=== PATIENT | female | born 1940 | race Caucasian/White ===

== ENCOUNTER 2018-11-03 07:00 | Inpatient (IN) ==
--- NOTE | 2018-11-03 07:17 | Emergency Department Note ---
Disposition Clinical Impression: Acute respiratory failure with hypoxemia, CHF (congestive heart failure) Disposition: Admitted As Inpatient Condition: Fair Time of Disposition: 11:27 SOB HPI - General Chief Complaint: ED Shortness of Breath/Dyspnea Stated Complaint: crist[place] Time Seen by Provider: 11/03/18 07:02 - History of Present Illness Patient has [id number] female that presented emergency room with complaints of shortness of breath. The patient states started about 3:30 in the morning. The patient does have a history of COPD, she is chronically on 2-1/2 L at home. She states that she has not had high fevers or chills. She had some swelling in the back of her head she stated this morning. She denies any chest pain, she has a nonproductive cough. She denies any leg pain or swelling. She does have a history of coronary artery disease and open heart surgery in the past as well as CHF history the past as well. She denies any anterior chest pain, palpitations, lightheadedness or dizziness. The patient denies any abdominal pain. She denies any back pain. She denies any other or GI complaints. Otherwise nothing makes symptoms much better, she has not used her inhaler as well as nebulizer at home this morning she states it did not help. The patient denies any other focal weakness or numbness. Exertion makes symptoms worse. - Related Data Home Medications Medication Instructions Recorded Confirmed Alendronate Sodium [Fosamax] 70 mg PO QWEEK 04/21/18 11/03/18 Aspirin [Lo-Dose Aspirin EC] 81 mg PO DAILY 04/21/18 11/03/18 B Complex with Vitamin C [Le-Bee 1 tab PO DAILY 04/21/18 11/03/18 with C] Biotin 10,000 mcg PO DAILY 04/21/18 11/03/18 Calcium Carb,Cit/D3/Phytostrol 1 tab PO DAILY 04/21/18 11/03/18 [Citracal D + Heart Health Tab] Cholecalciferol (D-3) [Vitamin D] 5,000 unit PO DAILY 04/21/18 11/03/18 Cilostazol 50 mg PO BID 04/21/18 11/03/18 Fluticasone Propionate Nasal 2 spr NS DAILY 04/21/18 11/03/18 [Flonase] Isosorbide MONOnitrate [Isosorbide 30 mg PO DAILY 04/21/18 11/03/18 Mononitrate ER] Lactobacillus Combination No.9 1 cap PO DAILY 04/21/18 11/03/18 [Adult 50 + Probiotic] Montelukast [Singulair] 10 mg PO DAILY 04/21/18 11/03/18 Potassium Chloride [K-Tab ER] 20 meq PO Q48H 04/21/18 11/03/18 Rosuvastatin Calcium 20 mg PO DAILY 04/21/18 11/03/18 Sertraline [Zoloft] 75 mg PO DAILY 04/21/18 11/03/18 Levothyroxine Sodium 100 mcg PO DAILY 06/26/18 11/03/18 Tiotropium [place] [Spiriva 2 puff IH DAILY 06/26/18 11/03/18 Respimat] Albuterol Sulfate [Ventolin Hfa] 2 puff IH Q6H PRN 08/15/18 11/03/18 LORazepam [Ativan] 1 mg PO HS PRN 08/15/18 11/03/18 Metoprolol XL (24 HR) Succ [Toprol 50 mg PO DAILY 08/15/18 11/03/18 Xl] Previous Rx's Medication Instructions Recorded Budesonide/Formoterol 160/4.5 2 puff IH BIDR #1 inh 04/25/18 [Symbicort 160/4.5] Albuterol Neb [Proventil Neb] 2.5 mg IH Q4HR #30 vial.neb 06/28/18 Ranolazine [Ranexa] 500 mg PO BID #60 tab.er.12h 06/28/18 Ticagrelor [Brilinta] 90 mg PO BID #60 tablet 06/28/18 Allergies Allergy/AdvReac Type Severity Reaction Status Date / Time lactose AdvReac Abdominal Verified 11/03/18 07:11 Pain Review of Systems: As mentioned per history of present illness and as follows. Constitutional: Negative for chills or fever HENT: Negative for sore throat. Eyes: Negative for visual disturbance Respiratory: Positive for shortness of breath. Cardiovascular: Negative for palpitations. Gastrointestinal: Negative for abdominal pain Genitourinary: Negative for dysuria Musculoskeletal: Negative for back pain. Skin: Negative for rash. Neurological: Negative for focal weakness Psychiatric/Behavioral: Negative for depression Past Medical History - Past Medical History Medical history: Reports: COPD, coronary artery disease, hyperlipidemia, hypertension, osteoporosis, thyroid disease, other Surgical history: Reports: carotid endarterectomy, coronary bypass (CABG) Psychiatric history: Reports: anxiety, depression [employer] history: Reports: no [employer] history - Social History Smoking Status: Former smoker Smokeless Tobacco Status: No Alcohol use: Reports: none Drug use: Reports: none Physical Exam PHYSICAL EXAM Constitutional: Well developed, cachectic appearing, mild respiratory distress, Non-toxic appearance. HENT: Normocephalic, Atraumatic, Bilateral external ears normal, Oropharynx moist, No oral exudates, Nose normal. Neck- Normal range of motion, No tenderness, Supple. Eyes: PERRL, EOMI, Conjunctiva normal,. Cardiovascular: Tachycardic rate and rhythm without clicks, rubs, gallops or murmurs. Respiratory: Diminished breath sounds bilaterally, mild respiratory distress noted, scattered rhonchi noted minimal wheezing appreciated bilaterally.. GI: Soft, nontender, no evidence of guarding or peritoneal signs. Bowel sounds are active. Musculoskeletal: Good range of motion in all major joints. No tenderness to palpation or major deformities noted. +5/5 strength noted to all extremities. Integument: Warm, Dry, No erythema, No rash. No edema. Neurologic: Alert & oriented x 3, Normal sensory function, No focal deficits noted. CN II-XII grossly intact. Course Vital Signs Temperature 98.1 F 11/03/18 07:13 Pulse Rate 130 11/03/18 07:13 Respiratory Rate 30 11/03/18 07:13 Blood Pressure 161/92 11/03/18 07:13 O2 Sat by Pulse Oximetry 94 11/03/18 07:13 Temperature 98.1 F 11/03/18 07:13 Pulse Rate 113 11/03/18 10:27 Respiratory Rate 18 11/03/18 11:16 Blood Pressure 134/75 11/03/18 11:16 O2 Sat by Pulse Oximetry 97 11/03/18 10:27 Oxygen Delivery Oxygen Delivery Room Air Shortness of Breath/Dyspnea - MDM Narrative Medical decision making narrative: Patient did have an EKG obtained that showed sinus tachycardia 133 beats a minute, patient has nonspecific intraventricular conduction delay. There is ST elevation in the precordial leads however this is mostly secondary to strain pattern as well as the atypical bundle branch block pattern. NH and QT intervals within normal limits. Interpreted by myself. Patient has no chest pain here in the emergency room. The patient did have a computer reading of an acute myocardial infarction based on EKG. However again this is most likely secondary to strain type pattern as well as the bundle branch pattern that she is experiencing on her EKG. She again has no other chest pain, the patient only has shortness of breath is an anginal equivalent. Patient does have a very minimal troponin elevation, this possibly is secondary to hypoxia. The patient does have what appears to be congestive heart failure changes on her chest x-ray. The patient was given IV Lasix here in the emergency room. She is currently stable on 5 L of nasal cannula oxygen. Her oxygen is at 94-95% at this time. Patient this point in time is in need of admission. The patient I do feel needs further evaluation in the hospital for congestive heart failure and her acute on chronic respiratory failure with hypoxia. Case will be discussed with the hospitalist and the patient will be admitted in stable condition to a telemetry floor. Patient did have a CT scan did not show any evidence of PE, bilateral effusions are noted. Patient does have cardiomegaly. The patient again does have symptoms consistent with congestive heart failure. Patient was given IV Lasix 2 here in the emergency room. CRITICAL CARE TIME OF 35 MINUTES PERFORMING THIS INDIVIDUAL OUTSIDE OF SEPARATELY BILLABLE PROCEDURES. THIS INCLUDES BEDSIDE EVALUATION, INTERPRETATION OF EKG AND LAB TESTS AND CONSULTATIONS. Final impression 1. Acute on chronic respiratory failure with hypoxia 2. Congestive heart failure - Lab Data Result diagrams: 11/03/18 07:49 11/03/18 07:19 Lab Results 11/03/18 11/03/18 11/03/18 Range/Units 07:19 07:19 07:31 WBC (4.3-11.1) K/mcL RBC (3.82-4.97) M/mcL Hgb (11.5-15.4) g/dL Hct (35.3-44.9) % MCV (83.0-100.0) fL MCH (28.0-33.3) pg MCHC (31.6-35.5) g/dL RDW (11.5-14.5) % Plt Count (140-400) K/mcL MPV (9.4-12.4) fL Immature Gran % (0-4) % Seg Neutrophils % % Lymphocytes % % Monocytes % % Eosinophils % % Basophils % % Neutrophils # (1.6-8.9) K/mcL Lymphocytes # (0.6-4.6) K/mcL Monocytes # (0.0-1.3) K/mcL Eosinophils # (0.0-0.6) K/mcL Basophils # (0.0-0.2) K/mcL VBG pH 7.28 L (7.32-7.42) pH Units VBG pCO2 56 H (41-51) mmHg VBG pO2 41 (25-50) mmHg VBG HCO3 26 (21-27) mEq/L Sodium 135 L (136-145) mEq/L Potassium 4.7 (3.5-5.1) mEq/L Chloride 98 (98-107) mEq/L Carbon Dioxide 26 (23-29) mEq/L BUN 12 (8-23) mg/dL Creatinine 1.04 (0.60-1.20) mg/dL Est GFR ( Amer) > 60 (> 60) Est GFR (Non-Af Amer) 51 L (> 60) BUN/Creatinine Ratio 12 (6-26) Glucose 175 H (70-105) mg/dL Calculated Osmolality 284 (280-300) Lactic Acid 1.5 (0.5-2.2) mmol/L Calcium 9.2 (8.6-10.3) mg/dL Troponin I 0.05 H* (< 0.04) ng/mL B-Natriuretic Peptide (Less than 100) pg/mL 11/03/18 11/03/18 Range/Units 07:49 07:49 WBC 16.6 H (4.3-11.1) K/mcL RBC 3.37 L (3.82-4.97) M/mcL Hgb 10.1 L (11.5-15.4) g/dL Hct 33.1 L (35.3-44.9) % MCV 98.2 (83.0-100.0) fL MCH 30.0 (28.0-33.3) pg MCHC 30.5 L (31.6-35.5) g/dL RDW 15.8 H (11.5-14.5) % Plt Count 233 (140-400) K/mcL MPV 10.6 (9.4-12.4) fL Immature Gran % 0.6 (0-4) % Seg Neutrophils % 85.0 % Lymphocytes % 8.6 % Monocytes % 5.3 % Eosinophils % 0.3 % Basophils % 0.2 % Neutrophils # 14.1 H (1.6-8.9) K/mcL Lymphocytes # 1.4 (0.6-4.6) K/mcL Monocytes # 0.9 (0.0-1.3) K/mcL Eosinophils # 0.1 (0.0-0.6) K/mcL Basophils # 0.0 (0.0-0.2) K/mcL VBG pH (7.32-7.42) pH Units VBG pCO2 (41-51) mmHg VBG pO2 (25-50) mmHg VBG HCO3 (21-27) mEq/L Sodium (136-145) mEq/L Potassium (3.5-5.1) mEq/L Chloride (98-107) mEq/L Carbon Dioxide (23-29) mEq/L BUN (8-23) mg/dL Creatinine (0.60-1.20) mg/dL Est GFR ( Amer) (> 60) Est GFR (Non-Af Amer) (> 60) BUN/Creatinine Ratio (6-26) Glucose (70-105) mg/dL Calculated Osmolality (280-300) Lactic Acid (0.5-2.2) mmol/L Calcium (8.6-10.3) mg/dL Troponin I (< 0.04) ng/mL B-Natriuretic Peptide 1941 H (Less than 100) pg/mL Critical Care Time Critical Care Time: Yes Total Critical Care Time: 35 Attestation: See chart
[2018-11-03 07:33] LABS: VBG HCO3 26 mEq/L (21-27); VBG PCO2 56 mmHg (41-51); VBG PH 7.28 pH Units (7.32-7.42); VBG PO2 41 mmHg (25-50)
[2018-11-03] MEDS ORDERED: Furosemide 40 MG/4 ML VIAL IVP ONE ×2 (07:45→09:34)
[2018-11-03 07:52] LABS: BUN/Creatinine Ratio 12 (6-26); Blood Urea Nitrogen 12 mg/dL (8-23); Calcium 9.2 mg/dL (8.6-10.3); Carbon Dioxide 26 mEq/L (23-29); Chloride 98 mEq/L (98-107); Glucose 175 mg/dL (70-105); Osmolality,Calculated 284 (280-300); Potassium 4.7 mEq/L (3.5-5.1); Sodium 135 mEq/L (136-145); eGFR For African Americans > 60 (> 60); eGFR For Non-African Americans 51 (> 60)
[2018-11-03 07:57] LABS: Troponin I 0.05 ng/mL (< 0.04)
[2018-11-03 08:01] LABS: Basophils % 0.2 %; Eosinophils # 0.1 K/mcL (0.0-0.6); Eosinophils % 0.3 %; Hematocrit 33.1 % (35.3-44.9); Hemoglobin 10.1 g/dL (11.5-15.4); Immature Granulocytes % 0.6 % (0-4); Lymphocytes # 1.4 K/mcL (0.6-4.6); Lymphocytes % 8.6 %; Mean Corpuscular HGB Conc 30.5 g/dL (31.6-35.5); Mean Corpuscular Volume 98.2 fL (83.0-100.0); Mean Platelet Volume 10.6 fL (9.4-12.4); Monocytes # 0.9 K/mcL (0.0-1.3); Monocytes % 5.3 %; Neutrophils # 14.1 K/mcL (1.6-8.9); Platelet Count 233 K/mcL (140-400); Red Blood Count 3.37 M/mcL (3.82-4.97); Red Cell Distribution Width 15.8 % (11.5-14.5); White Blood Count 16.6 K/mcL (4.3-11.1)
[2018-11-03] MEDS ORDERED: Aspirin 325 MG TABLET PO ONE (08:07)
[2018-11-03] MEDS ORDERED: Isovue-370 500 ML BOTTLE IVP ONE (09:37)
[2018-11-03] MEDS ORDERED: Naloxone 0.4 MG/ML INJ IVP PRN (14:13)
[2018-11-03] MEDS ORDERED: Ondansetron 4 MG/2 ML VIAL IVP PRN (14:13)
--- NOTE | 2018-11-03 14:13 | Internal Med History&Physical ---
Date of Encounter: 11/03/18 Time of Encounter: 14:12 Internal Medicine - H&P: HPI Chief complaint: Shortness of breath History of present illness: Ms. Liang is a 78 year old female with past medical history of COPD on 2-1/2 L at home, coronary artery disease, hyperlipidemia, hypertension, osteoporosis, thyroid disease who presented with complaints of shortness of breath associated with nonproductive cough. She denies any chest pain,palpitation, orthopnea, PND , palpitations, lightheadedness or dizziness or progressive worsening of LE EDEMA. CXR revealed Cardiomegaly with mild vascular congestion and interstitial infiltrates likely representing edema and congestive failure. The patient was evaluated by the ER staff and her EKG revealed no significant ST changes however she was tachycardiac, hypoxic and tachypneic which raised a concern for possible PE. The patient was treated with Lasix and started on high flow oxygen and CTA of the chest to rule out PE was obtained and was negative, the patient was admitted for further evaluation and management. Past Med Surg Social Fam HX - Past Medical History Medical history: COPD, coronary artery disease, hyperlipidemia, hypertension, osteoporosis, thyroid disease, other Additional medical history: stomach aneurysm Psychiatric history: anxiety, depression - Past Surgical History Surgical History: carotid endarterectomy, coronary bypass (CABG) Additional surgical history: Aortic Aneurism Repair, Stents in kidneys, 9 vascular surgeries to legs, [facility] 02/10/14 - Social History Smoking Status: Former smoker Smokeless Tobacco Status: No Alcohol use: none Drug use: none - Family History Sister Living Status: Hx Family Cardiac Disorders: Yes Son Hx Family Cardiac Disorders: Yes (OK) Father Living Status: Hx Family Cardiac Disorders: Yes (CAD) Mother Living Status: Hx Family Cardiac Disorders: Yes (CAD) Internal Medicine - H&P: Meds Alendronate Sodium [Fosamax] 70 mg PO MO 04/21/18 [History] Aspirin [Lo-Dose Aspirin EC] 81 mg PO DAILY 04/21/18 [History] B Complex with Vitamin C [Le-Bee with C] 1 tab PO DAILY 04/21/18 [History] Biotin 10,000 mcg PO DAILY 04/21/18 [History] Calcium Carb,Cit/D3/Phytostrol [Citracal D + Heart Health Tab] 1 tab PO DAILY 04/21/18 [History] Cholecalciferol (D-3) [Vitamin D] 5,000 unit PO DAILY 04/21/18 [History] Fluticasone Propionate Nasal [Flonase] 2 spr NS DAILY 04/21/18 [History] Isosorbide MONOnitrate [Isosorbide Mononitrate ER] 30 mg PO BID 04/21/18 [History] Lactobacillus Combination No.9 [Adult 50 + Probiotic] 1 cap PO DAILY 04/21/18 [History] Potassium Chloride [K-Tab ER] 20 meq PO BID 04/21/18 [History] Rosuvastatin Calcium 20 mg PO DAILY 04/21/18 [History] Sertraline [Zoloft] 75 mg PO DAILY 04/21/18 [History] Budesonide/Formoterol 160/4.5 [Symbicort 160/4.5] 2 puff IH BIDR #1 inh 04/25/18 [Rx] Tiotropium [place] [Spiriva Respimat] 2 puff IH DAILY 06/26/18 [History] Ranolazine [Ranexa] 500 mg PO BID #60 tab.er.12h 06/28/18 [Rx] Albuterol Sulfate [Ventolin Hfa] 2 puff IH Q6H PRN 08/15/18 [History] LORazepam [Ativan] 1 mg PO HS 08/15/18 [History] Metoprolol XL (24 HR) Succ [Toprol Xl] 50 mg PO DAILY 08/15/18 [History] Albuterol Neb [Proventil Neb] 2.5 mg IH QAM 11/04/18 [History] Clopidogrel [Plavix] 75 mg PO DAILY 11/04/18 [History] Furosemide [Lasix] 40 mg PO DAILY PRN 11/04/18 [History] Levothyroxine Sodium 88 mcg PO QAM 11/04/18 [History] Metoprolol XL (24 HR) Succ [Toprol Xl] 25 mg PO DAILY 11/04/18 [History] Allergy/AdvReac Type Severity Reaction Status Date / Time lactose AdvReac Abdominal Verified 11/03/18 07:11 Pain All Systems PM: A 10-system review of systems was performed and is negative for pertinent findings except as documented above in the HPI. - Constitutional Vitals: Temp Pulse Resp BP Pulse Ox 98.2 F 114 22 145/84 97 07/29/19 12:17 11/03/18 12:17 11/03/18 12:17 11/03/18 12:17 11/03/18 12:17 General appearance: Present: A&O X 3 Exam: . - Head Head exam: Present: atraumatic, normocephalic - Neck Neck exam general surgery: Present: supple, trachea midline. Absent: lymphadenopathy - Respiratory Respiratory exam: Present: respiratory distress, wheezes. Absent: accessory muscle use, rales, rhonchi - Cardiovascular Cardiovascular exam: Present: RRR, +S1, +S2. Absent: diastolic murmur, gallop, rubs, systolic murmur - GI/Abdominal GI/Abdominal exam: Present: normal bowel sounds, soft, no peritoneal signs. Absent: distended, tenderness - Extremities Exam Extremities exam: Present: warm, radial pulses palpable and symmetrical. Absent: calf tenderness, cyanotic, pedal edema Internal Med - H&P Results - Labs CBC & Chem 7: 11/06/18 08:16 11/06/18 08:16 Labs: Short CBC 11/03/18 Range/Units 07:49 WBC 16.6 H (4.3-11.1) K/mcL Hgb 10.1 L (11.5-15.4) g/dL Hct 33.1 L (35.3-44.9) % Plt Count 233 (140-400) K/mcL Neutrophils # 14.1 H (1.6-8.9) K/mcL BMP 11/03/18 07:19 Sodium 135 L Potassium 4.7 Chloride 98 Carbon Dioxide 26 BUN 12 Creatinine 1.04 Glucose 175 H Calcium 9.2 Cardiac Enzymes 11/03/18 Range/Units 07:19 Troponin I 0.05 H* (< 0.04) ng/mL - ABG Interpretation ABG results: 11/03/18 07:31 VBG pH 7.28 L VBG pCO2 56 H VBG pO2 41 VBG HCO3 26 - Impressions ITS Impressions Chest X-Ray 11/03/18 07:07 IMPRESSION: 1. Cardiomegaly with mild vascular congestion and interstitial infiltrates likely representing edema and congestive failure. 2. Small bilateral pleural effusions with associated atelectasis left greater than right. D/ / Deepak Brothers MD / Deepak Brothers MD Interpreting Provider: Deepak Brothers MD Chest CTA 11/03/18 09:37 IMPRESSION: 1. No evidence of pulmonary embolism 2. Calcific coronary atherosclerosis with cardiomegaly and bilateral pleural effusions 3. Advanced pulmonary emphysema with postinflammatory change in the left upper lobe D/ / Lowell Whelan MD / Lowell Whelan MD Interpreting Provider: Lowell Whelan MD - Assessment and Plan (1) Acute exacerbation of CHF (congestive heart failure) Status: Acute Assessment and plan: Making the studies is suggestive of congestive heart failure, pulmonary embolism was ruled out. 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 (5) Coronary artery disease Status: Chronic Assessment and plan: We will continue home medication. Qualifiers: Coronary Disease-Associated Artery/Lesion type: bypass graft [place] vs. tr ansplanted heart: [place] heart Associated angina: without angina Qualified Code(s): I25.810 - Atherosclerosis of coronary artery bypass graft(s) without angina pectoris (6) HLD (hyperlipidemia) Status: Chronic Assessment and plan: We will continue home statin and obtain fasting serum profile in a.m. Qualifiers: Hyperlipidemia type: unspecified Qualified Code(s): E78.5 - Hyperlipidemia, unspecified (7) Hypertension Status: Chronic Assessment and plan: We will continue home medication, continue to monitor blood pressure and adjust regimen if indicated Qualifiers: Hypertension type: unspecified Qualified Code(s): I10 - Essential (primary) hypertension (8) Hypothyroidism Status: Chronic Assessment and plan: We will continue home thyroxine Qualifiers: Hypothyroidism type: unspecified Qualified Code(s): E03.9 - Hypothyroidism, unspecified (9) Peripheral vascular disease Status: Chronic (10) Pulmonary hypertension Status: Chronic (11) DVT prophylaxis Status: Acute - Time Spent With Patient Total time spent is greater than 50% in coordination of care (as documented) at patient's floor/unit and/or counseling patient:
--- NOTE | 2018-11-03 16:49 | Electrocardiograph Report ---
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
[2018-11-04 02:27] LABS: Basophils % 0.2 %; Eosinophils # 0.1 K/mcL (0.0-0.6); Eosinophils % 1.1 %; Hematocrit 32.4 % (35.3-44.9); Immature Granulocytes % 0.5 % (0-4); Lymphocytes # 1.5 K/mcL (0.6-4.6); Lymphocytes % 11.8 %; Mean Corpuscular HGB Conc 30.9 g/dL (31.6-35.5); Mean Corpuscular Hemoglobin 29.6 pg (28.0-33.3); Mean Corpuscular Volume 95.9 fL (83.0-100.0); Mean Platelet Volume 10.4 fL (9.4-12.4); Monocytes # 0.9 K/mcL (0.0-1.3); Monocytes % 6.6 %; Neutrophils # 10.3 K/mcL (1.6-8.9); Platelet Count 197 K/mcL (140-400); Red Blood Count 3.38 M/mcL (3.82-4.97); Red Cell Distribution Width 15.9 % (11.5-14.5); Segmented Neutrophils % 79.8 %; White Blood Count 12.9 K/mcL (4.3-11.1)
[2018-11-04 02:39] LABS: Prothrombin Time 11.7 Seconds (9.4-12.1)
[2018-11-04 02:42] LABS: Activated Partial Thrombo Time 30.8 Seconds (26.0-36.0)
[2018-11-04 02:48] LABS: Alanine Aminotransferase 11 Units/L (7-52); Albumin 3.3 g/dL (3.5-5.7); Albumin/Globulin Ratio 0.9 (1.1-2.2); Alkaline Phosphatase 54 Units/L (34-104); Aspartate Amino Transferase 24 Units/L (13-39); BUN/Creatinine Ratio 14 (6-26); Bilirubin,Total 0.5 mg/dL (0.3-1.0); Blood Urea Nitrogen 13 mg/dL (8-23); Calcium 8.6 mg/dL (8.6-10.3); Carbon Dioxide 31 mEq/L (23-29); Chloride 97 mEq/L (98-107); Cholesterol 154 mg/dL (< 200); Globulin 3.6 g/dL (2.4-3.5); Glucose 96 mg/dL (70-105); HDL Cholesterol 78 mg/dL (40-59); LDL Cholesterol,Calculated 55 mg/dL (0-99); Magnesium 1.7 mg/dL (1.6-2.6); Osmolality,Calculated 282 (280-300); Phosphorous 2.9 mg/dL (2.7-4.5); Sodium 136 mEq/L (136-145); Total Protein 6.9 g/dL (6.4-8.9); Triglycerides 103 mg/dL (< 150); eGFR For African Americans > 60 (> 60); eGFR For Non-African Americans > 60 (> 60)
[2018-11-04] MEDS: *HR* LORazepam 1 MG TABLET PO PRN ×2 (03:06→23:48)
[2018-11-04] MEDS: Furosemide 40 MG/4 ML VIAL IVP SCH ×2 (08:06→17:03)
[2018-11-04] MEDS ORDERED: *HR* LORazepam 1 MG TABLET PO PRN (11:17)
--- NOTE | 2018-11-04 12:17 | Internal Med Progress Note ---
Hospitalist Progress Note - Encounter Date of Encounter: 11/04/18 Time of Encounter: 08:45 - Subjective Interval History: Seen at bedside. Feeling better than yesterday. Still is SOB but better than yesterday. Debues chst pain, fever, chills. No overnight events. - Exam Vitals: Temp Pulse Resp BP Pulse Ox 98.6 F 107 16 117/77 93 11/04/18 07:32 11/04/18 07:32 11/04/18 07:32 11/04/18 07:32 11/04/18 07:32 Exam: General: Alert and oriented, no physical distress, able to follow commands. Respiratory: No crackles, breath sounds decreased in both bases CVS: Normal heart sounds, no murmurs, no edema. Extremities: No peripheral edema, peripheral pulses intact. Lymph nodes: No lymphadenopathy Gastrointestinal: Soft, nontender abdomen, normal abdominal sounds. No distention noted. Genitourinary: No paravertebral tenderness. Neurological: Alert and oriented. No focal deficits. Cranial nerves II-XII intact. - Assessment and Plan (1) Acute exacerbation of CHF (congestive heart failure) Current Visit: Yes Status: Acute Assessment and Plan: -Presented with the shortness of breath. EKG showed sinus tachycardia, biatrial enlargement, nonspecific intraventricular conduction delay, anterior infarct. -Troponins are elevated and peaked at 0.09. Started on IV Lasix. Feeling better than yesterday. -Echocardiogram showed low ejection fracttion -Creatinine improved with the diuresis. Plan: -Continue with IV diuresis at the current dose. Consult cardiology for recommendations regarding ischemic workup. Input and output. Daily weight. Tapered on oxygen. (2) Coronary artery disease Current Visit: No Status: Chronic Assessment and Plan: -Status post CABG -We will continue home medication. (3) Peripheral vascular disease Current Visit: No Status: Chronic Assessment and Plan: -Multipe surgeries acc to pt -Continue statin, aspirin and cilostazol (4) DVT prophylaxis Current Visit: No Status: Acute Assessment and Plan: -Up and waliking (5) Low phosphate levels Current Visit: No Status: Acute Assessment and Plan: Normalzied (6) Hypothyroidism Current Visit: No Status: Chronic Assessment and Plan: We will continue home thyroxine (7) Pulmonary hypertension Current Visit: No Status: Chronic (8) Elevated troponin Current Visit: No Status: Acute Assessment and Plan: -EKG without ant ischemci changes. -Tropoins peaked at 0.09 -Type II likely 2/2 congestive heatt -Type I events cannpt be ruled out cosnidering drop in EF -Cardiolgoy consulted for the recommendatiosn regarding the ischemic workup (9) Hypertension Current Visit: No Status: Chronic Assessment and Plan: -BP stable -COntinue the home meds (10) HLD (hyperlipidemia) Current Visit: No Status: Chronic Assessment and Plan: -Continue the home rosuvastatin - Time Spent with Patient Total time spent is greater than 50% in coordination of care (as documented) at patient's floor/unit and/or counseling patient: Internal Medicine: Result - Labs CBC & Chem 7: 11/04/18 02:15 11/04/18 02:15 Labs: Short CBC 11/04/18 Range/Units 02:15 WBC 12.9 H (4.3-11.1) K/mcL Hgb 10.0 L (11.5-15.4) g/dL Hct 32.4 L (35.3-44.9) % Plt Count 197 (140-400) K/mcL Neutrophils # 10.3 H (1.6-8.9) K/mcL BMP 11/04/18 02:15 Sodium 136 Potassium 4.0 Chloride 97 L Carbon Dioxide 31 H BUN 13 Creatinine 0.90 Glucose 96 Calcium 8.6 Cardiac Enzymes 11/03/18 11/03/18 11/04/18 Range/Units 14:37 20:47 02:15 Troponin I 0.07 H* 0.09 H* 0.09 H* (< 0.04) ng/mL Liver Function 11/04/18 Range/Units 02:15 Total Bilirubin 0.5 (0.3-1.0) mg/dL AST 24 (13-39) Units/L ALT 11 (7-52) Units/L Alkaline Phosphatase 54 (34-104) Units/L Albumin 3.3 L (3.5-5.7) g/dL - ABG Interpretation ABG results: PT/INR, D-dimer PT 11.7 Seconds (9.4-12.1) 11/04/18 02:15 - Impressions Impressions Echocardiogram 11/04/18 05:10 Impressions: LVEF 35-40%. Mild concentric left ventricular hypertrophy. Indeterminate diastolic function. Normal right ventricular structure and function. Moderately dilated left atrium. Mild tricuspid regurgitation. Mild mitral stenosis.Mean transmitral gradient is 5 mmHg @ HR of 123/min Mild mitral regurgitation. Mild pulmonary hypertension.Estimated RVSP is 38 mmHg. Findings: Study Quality * Technically adequate exam. ECG Findings * Uncertain rhythm with BBB. Left Ventricle * LVEF 35-40%. * Mild concentric left ventricular hypertrophy. * Indeterminate diastolic function. * Definity echo contrast was used. IVC * Normal IVC dimensions and inspiratory collapse. Right Ventricle * Normal right ventricular structure and function. Left Atrium * Moderately dilated left atrium. Pericardium * There is a trivial pericardial effusion present. Aortic Valve * Moderately sclerotic aortic valve leaflets. * No aortic stenosis. * No aortic regurgitation. * Aortic valve not well visualized. Tricuspid Valve * Mild tricuspid regurgitation. * Mild pulmonary hypertension.Estimated RVSP is 38 mmHg. * Estimated RA pressure is 4 mmHg. * Estimated RVSP is 38 mmHg. Mitral Valve * Mild mitral stenosis.Mean transmitral gradient is 5 mmHg @ HR of 123/min * * Moderate mitral annular calcification * Mild mitral regurgitation. Pulmonic Valve * Mild pulmonic regurgitation. Consult Discharge Plan - Plan Referrals: Trupti Ojeda MD [Primary Care Provider] - 11/19/18 11:15 am (1) Acute exacerbation of CHF (congestive heart failure) Qualifiers: Heart failure type: combined systolic and diastolic Qualified Code(s): I50.43 - Acute on chronic combined systolic (congestive) and diastolic (congestive) heart failure (2) Coronary artery disease Qualifiers: Coronary Disease-Associated Artery/Lesion type: bypass graft [place] vs. transplanted heart: [place] heart Associated angina: without angina Qualified Code(s): I25.810 - Atherosclerosis of coronary artery bypass graft(s) without angina pectoris (6) Hypothyroidism Qualifiers: Hypothyroidism type: unspecified Qualified Code(s): E03.9 - Hypothyroidism, unspecified (9) Hypertension Qualifiers: Hypertension type: unspecified Qualified Code(s): I10 - Essential (primary) hypertension (10) HLD (hyperlipidemia) Qualifiers: Hyperlipidemia type: unspecified Qualified Code(s): E78.5 - Hyperlipidemia, unspecified
[2018-11-04] MEDS: Isosorbide MONOnitrate (24 HR) 30 MG TAB.ER.24H PO SCH (14:54)
[2018-11-04] MEDS: Metoprolol XL (24 HR) Succ 50 MG TAB.ER.24H PO SCH (14:54)
[2018-11-04] MEDS: Albuterol 2.5 MG/3 ML NEBULIZER IH SCH ×3 (15:35→23:54)
--- NOTE | 2018-11-04 15:43 | Cardiology Consult Note ---
<Mirna Carney Nadia - Last Filed: 11/04/18 16:03> Date of Encounter: 11/04/18 Time of Encounter: 14:00 Assessment and Plan (1) CHF (congestive heart failure), NYHA class IV Current Visit: Yes Status: Acute Development of SOB while sleeping, pulmonary effusion, hypoxia consistent with worsening CHF. - Stop cilostazol in light of CHF - Recommend catherization to evaluate stent and graft patency - Evaluate renal function post-cath and start lisinopril if Cr WNL - Continue furosemide to pursue resolution of ascites - Continue other home cardiac medications; may change Brilinta dosing pending post-cath results - Monitor for persistent tachycardia despite appropriate metoprolol Qualifiers: Congestive heart failure type: combined Congestive heart failure chronicity: acute on chronic Qualified Code(s): I50.43 - Acute on chronic combined systolic (congestive) and diastolic (congestive) heart failure (2) Anemia Current Visit: Yes Status: Chronic Lab results show Hgb stable at 10 during this admission, however in July Hbg was 8. Persistent anemia may contribute to hypoxia as well as sinus tachycardia, and may reflect underlying CHF. Normocytic MCV not consistent with iron defi ciency anemia. - Consider workup for cause of anemia - Consider starting supplementation appropriate to cause Qualifiers: Anemia type: unspecified type Qualified Code(s): D64.9 - Anemia, unspecified Discussion w patient/family: The assessment and plan as outlined above was discussed with the patient and/or family members who expressed understanding and agreement. All questions were answered. Thank you for involving us in the care of your patient. Please call with any questions. History of Present Illness Consult date: 11/04/18 History of present illness: Ms. Liang is a 78 year old female who came to the ED on 11/03/18 after waking SOB around 0330. She denied CP, diaphoresis, N/V, LOC, numbness, tingling or other concerning symptoms. SHe was tachycardic, tachypneic and hypoxia on arrival. EKG showed sinus tachycardia at 133, atypical BBB and possible ST elevations in V1-V6. Troponin mildly elevated with peak 0.09x2, BNP 1941. CXR consistent w/ changes 2/2 CHF and pulmonary emphysema, as was CT, which was negative for PE. She was given IV Lasix x2 in ED along with increased O2 flow to 5L. Echo on 11/04 showed LVEF 35-40% (In 2009 55-60%). PMH significant for COPD on 2.5L O2 at home and CHF diagnosed in June, CABG 2006, CAD, PVD, NSTEMI, cath 2013, HTN, HLD, hypothyroid. Past Med Surg Social Fam HX - Past Medical History Medical history: COPD, coronary artery disease, hyperlipidemia, hypertension, osteoporosis, thyroid disease, other Additional medical history: stomach aneurysm Psychiatric history: anxiety, depression - Past Surgical History Surgical History: carotid endarterectomy, coronary bypass (CABG) Additional surgical history: Aortic Aneurism Repair, Stents in kidneys, 9 vascular surgeries to legs, [facility] 02/10/14 - Social History Smoking Status: Former smoker Smokeless Tobacco Status: No Alcohol use: none Drug use: none - Family History Sister Living Status: Hx Family Cardiac Disorders: Yes Son Hx Family Cardiac Disorders: Yes (HI) Father Living Status: Hx Family Cardiac Disorders: Yes (CAD) Mother Living Status: Hx Family Cardiac Disorders: Yes (CAD) Medications and Allergies Alendronate Sodium [Fosamax] 70 mg PO QWEEK 04/21/18 [History] Aspirin [Lo-Dose Aspirin EC] 81 mg PO DAILY 04/21/18 [History] B Complex with Vitamin C [[place] with C] 1 tab PO DAILY 04/21/18 [History] Biotin 10,000 mcg PO DAILY 04/21/18 [History] Calcium Carb,Cit/D3/Phytostrol [Citracal D + Heart Health Tab] 1 tab PO DAILY 04/21/18 [History] Cholecalciferol (D-3) [Vitamin D] 5,000 unit PO DAILY 04/21/18 [History] Cilostazol 50 mg PO BID 04/21/18 [History] Fluticasone Propionate Nasal [Flonase] 2 spr NS DAILY 04/21/18 [History] Isosorbide MONOnitrate [Isosorbide Mononitrate ER] 30 mg PO DAILY 04/21/18 [History] Lactobacillus Combination No.9 [Adult 50 + Probiotic] 1 cap PO DAILY 04/21/18 [History] Montelukast [Singulair] 10 mg PO DAILY 04/21/18 [History] Potassium Chloride [K-Tab ER] 20 meq PO Q48H 04/21/18 [History] Rosuvastatin Calcium 20 mg PO DAILY 04/21/18 [History] Sertraline [Zoloft] 75 mg PO DAILY 04/21/18 [History] Budesonide/Formoterol 160/4.5 [Symbicort 160/4.5] 2 puff IH BIDR #1 inh 04/25/18 [Rx] Levothyroxine Sodium 100 mcg PO DAILY 06/26/18 [History] Tiotropium [place] [Spiriva Respimat] 2 puff IH DAILY 06/26/18 [History] Albuterol Neb [Proventil Neb] 2.5 mg IH Q4HR #30 vial.neb 06/28/18 [Rx] Ranolazine [Ranexa] 500 mg PO BID #60 tab.er.12h 06/28/18 [Rx] Ticagrelor [Brilinta] 90 mg PO BID #60 tablet 06/28/18 [Rx] Albuterol Sulfate [Ventolin Hfa] 2 puff IH Q6H PRN 08/15/18 [History] LORazepam [Ativan] 1 mg PO HS PRN 08/15/18 [History] Metoprolol XL (24 HR) Succ [Toprol Xl] 50 mg PO DAILY 08/15/18 [History] Allergy/AdvReac Type Severity Reaction Status Date / Time lactose AdvReac Abdominal Verified 11/03/18 07:11 Pain All Systems Review: The remainder of the systems were reviewed and are negative unless otherwise stated. - Cardiovascular Cardiovascular: dyspnea at rest, dyspnea on exertion - Respiratory Respiratory: dyspnea - Neurological Neurological: dizziness Physical Examination Vital Signs, Last 4 Hours Temp Pulse Resp BP Pulse Ox 11/04/18 12:24 98.3 F 123 16 122/71 99 General: Conversant, No Apparent Distress, Other (AOx3) HEENT: Atraumatic, Normocephaly, Mucus Membranes Moist Neck: Normal carotid pulses Cardiac: Normal S1 and S2, No Murmur, Other (Tachycardic to 120s) Lungs: Other (Diminished breath sounds bilaterally w/ mild wheezing on auscultation) Neuro: Alert and responsive, No focal deficits noted Abdomen: Non-Tender, Other (Non-rigid distention w/ fluid wave consistent w/ ascites) Skin: No rashes noted on visualized skin Musculoskeletal: No Chest Wall Tenderness Extremities: No Clubbing, No Cyanosis, No Edema, Normal Pulses Results 11/04/18 02:15 11/04/18 02:15 Lab Results 11/03/18 11/04/18 11/04/18 20:47 02:15 02:15 WBC 12.9 H Hgb 10.0 L Hct 32.4 L Plt Count 197 INR APTT Sodium Potassium Chloride Carbon Dioxide BUN Creatinine Glucose Calcium Magnesium Total Bilirubin AST ALT Alkaline Phosphatase Troponin I 0.09 H* 0.09 H* 11/04/18 11/04/18 02:15 02:15 WBC Hgb Hct Plt Count INR 1.0 APTT 30.8 Sodium 136 Potassium 4.0 Chloride 97 L Carbon Dioxide 31 H BUN 13 Creatinine 0.90 Glucose 96 Calcium 8.6 Magnesium 1.7 Total Bilirubin 0.5 AST 24 ALT 11 Alkaline Phosphatase 54 Troponin I - Imaging and Cardiology Chest Xray: report reviewed, image reviewed Echo: report reviewed - EKG Interpretation EKG results cardiology: personally reviewed, sinus rhythm (Tachycardia to 130s- 150s, possible ventricular conduction delay) Consult Discharge Plan - Plan Referrals: Trupti Ojeda MD [Primary Care Provider] - 11/19/18 11:15 am <Kimi Greco - Last Filed: 11/04/18 16:36> Date of Encounter: 11/04/18 - Attending Attestation I examined this patient and my medical decision-making was reviewed with the Resident Physician. I agree with the documented findings, disposition and treatment plan as described. Ms. Liang presents with worsening SOB, known advanced pulmonary emphysema. Incidentally discovered to have acute LV systolic CHF, presumed new. Prior outpatient records document normal LVEF, known CAD and prior CABG. Discussed options with patient including LHC. Patient's pulmonary status may limit her from proceeding. Continue with IV diuresis - moderate bilateral pleural effusions. Will make attempts to lay patient flat in the AM to determine if proceeding is appropriate. Also with known severe PVD. Continue antiplatelet agents, statin, BB. Stop pletal in setting of HF. Consider addition of ANDREA/ARB after LHC. Of note, Hgb in July 2017 was 8.3 - patient denies knowledge of this and denies history of bleeding. Renal function normal. Assessment and Plan Discussion w patient/family: The assessment and plan as outlined above was discussed with the patient and/or family members who expressed understanding and agreement. All questions were answered. Thank you for involving us in the care of your patient. Please call with any questions. History of Present Illness History of present illness: Ms. Liang is a 78 year old female All Systems Review: The remainder of the systems were reviewed and are negative Results 11/04/18 02:15 11/04/18 02:15 Lab Results 11/03/18 11/04/18 11/04/18 20:47 02:15 02:15 WBC 12.9 H Hgb 10.0 L Hct 32.4 L Plt Count 197 INR APTT Sodium Potassium Chloride Carbon Dioxide BUN Creatinine Glucose Calcium Magnesium Total Bilirubin AST ALT Alkaline Phosphatase Troponin I 0.09 H* 0.09 H* 11/04/18 11/04/18 02:15 02:15 WBC Hgb Hct Plt Count INR 1.0 APTT 30.8 Sodium 136 Potassium 4.0 Chloride 97 L Carbon Dioxide 31 H BUN 13 Creatinine 0.90 Glucose 96 Calcium 8.6 Magnesium 1.7 Total Bilirubin 0.5 AST 24 ALT 11 Alkaline Phosphatase 54 Troponin I
[2018-11-04] MEDS: Budesonide/Formoterol 160/4.5 1 PUFF INH IH SCH (19:55)
[2018-11-04] MEDS: Ranolazine 500 MG TAB.ER.12H PO SCH (20:44)
[2018-11-04] MEDS ORDERED: *HR* Ticagrelor 90 MG TABLET PO SCH (21:00)
[2018-11-05] MEDS: Albuterol 2.5 MG/3 ML NEBULIZER IH SCH ×7 (03:40→23:47)
[2018-11-05 05:11] LABS: Basophils % 0.3 %; Eosinophils # 0.2 K/mcL (0.0-0.6); Eosinophils % 2.3 %; Hematocrit 29.6 % (35.3-44.9); Hemoglobin 9.3 g/dL (11.5-15.4); Immature Granulocytes % 0.4 % (0-4); Lymphocytes # 1.7 K/mcL (0.6-4.6); Lymphocytes % 24.1 %; Mean Corpuscular HGB Conc 31.4 g/dL (31.6-35.5); Mean Corpuscular Volume 95.5 fL (83.0-100.0); Mean Platelet Volume 10.7 fL (9.4-12.4); Monocytes # 0.4 K/mcL (0.0-1.3); Monocytes % 6.1 %; Neutrophils # 4.7 K/mcL (1.6-8.9); Platelet Count 175 K/mcL (140-400); Red Cell Distribution Width 15.9 % (11.5-14.5); Segmented Neutrophils % 66.8 %
[2018-11-05 05:47] LABS: BUN/Creatinine Ratio 18 (6-26); Blood Urea Nitrogen 14 mg/dL (8-23); Calcium 8.1 mg/dL (8.6-10.3); Carbon Dioxide 30 mEq/L (23-29); Chloride 97 mEq/L (98-107); Glucose 102 mg/dL (70-105); Osmolality,Calculated 279 (280-300); Potassium 2.9 mEq/L (3.5-5.1); Sodium 134 mEq/L (136-145); eGFR For African Americans > 60 (> 60); eGFR For Non-African Americans > 60 (> 60)
[2018-11-05] MEDS: Budesonide/Formoterol 160/4.5 1 PUFF INH IH SCH ×2 (07:41→19:32)
[2018-11-05] MEDS: Tiotropium 18 MCG inhalation IH SCH (07:41)
[2018-11-05] MEDS: Ranolazine 500 MG TAB.ER.12H PO SCH ×2 (08:13→20:57)
[2018-11-05] MEDS: Metoprolol XL (24 HR) Succ 50 MG TAB.ER.24H PO SCH (08:13)
[2018-11-05] MEDS: Isosorbide MONOnitrate (24 HR) 30 MG TAB.ER.24H PO SCH ×2 (08:13→20:57)
[2018-11-05] MEDS: Aspirin Enteric Coated 81 MG Tablet PO SCH (08:13)
[2018-11-05] MEDS: Vitamin B Complex/Vit C/Vit E 1 EACH TABLET PO SCH (08:13)
[2018-11-05] MEDS: Cholecalciferol (D-3) 1,000 UNIT (25MCG) TABLET PO SCH (08:14)
--- NOTE | 2018-11-05 08:21 | Internal Med Progress Note ---
Hospitalist Progress Note - Encounter Date of Encounter: 11/05/18 Time of Encounter: 08:00 - Subjective Interval History: No acute events overnight - Exam Vitals: Temp Pulse Resp BP Pulse Ox 98.3 F 91 17 122/68 95 11/05/18 07:56 11/05/18 07:56 11/05/18 07:56 11/05/18 07:56 11/05/18 07:56 Exam: General: Alert and oriented, no physical distress, able to follow commands. Respiratory: No crackles, breath sounds decreased in both bases CVS: Normal heart sounds, no murmurs, no edema. Extremities: No peripheral edema, peripheral pulses intact. Lymph nodes: No lymphadenopathy Gastrointestinal: Soft, nontender abdomen, normal abdominal sounds. No distention noted. Genitourinary: No paravertebral tenderness. Neurological: Alert and oriented. No focal deficits. Cranial nerves II-XII intact. - Assessment and Plan (1) Acute exacerbation of CHF (congestive heart failure) Current Visit: Yes Status: Acute Assessment and Plan: Presented with the shortness of breath. Started on lasix IV BID and improved Has a new depressed EF and cardiology plan for cath today (2) Coronary artery disease Current Visit: Yes Status: Chronic Assessment and Plan: -Status post CABG Continue home meds. (3) Peripheral vascular disease Current Visit: Yes Status: Chronic Assessment and Plan: -Multipe surgeries acc to pt -Continue statin, aspirin Hold cilostazol due to CHF (4) Hypothyroidism Current Visit: No Status: Chronic Assessment and Plan: We will continue home thyroxine (5) Elevated troponin Current Visit: No Status: Acute Assessment and Plan: -EKG without ant ischemci changes. -Tropoins peaked at 0.09 -Type II likely 2/2 congestive heatt -Type I events cannpt be ruled out cosnidering drop in EF -Cardiolgoy consulted for the recommendatiosn regarding the ischemic workup (6) Hypertension Current Visit: No Status: Chronic Assessment and Plan: -BP stable -COntinue the home meds (7) HLD (hyperlipidemia) Current Visit: No Status: Chronic Assessment and Plan: -Continue the home rosuvastatin (8) DVT prophylaxis Current Visit: No Status: Acute Assessment and Plan: Heparin sc - Time Spent with Patient Total time spent is greater than 50% in coordination of care (as documented) at patient's floor/unit and/or counseling patient: Internal Medicine: Result - Labs CBC & Chem 7: 11/05/18 04:19 11/05/18 04:19 Labs: Short CBC 11/05/18 Range/Units 04:19 WBC 7.0 (4.3-11.1) K/mcL Hgb 9.3 L (11.5-15.4) g/dL Hct 29.6 L (35.3-44.9) % Plt Count 175 (140-400) K/mcL Neutrophils # 4.7 (1.6-8.9) K/mcL BMP 11/05/18 04:19 Sodium 134 L Potassium 2.9 L Chloride 97 L Carbon Dioxide 30 H BUN 14 Creatinine 0.78 Glucose 102 Calcium 8.1 L - ABG Interpretation ABG results: PT/INR, D-dimer PT 11.7 Seconds (9.4-12.1) 11/04/18 02:15 - Impressions Impressions Echocardiogram 11/04/18 05:10 Impressions: LVEF 35-40%. Mild concentric left ventricular hypertrophy. Indeterminate diastolic function. Normal right ventricular structure and function. Moderately dilated left atrium. Mild tricuspid regurgitation. Mild mitral stenosis.Mean transmitral gradient is 5 mmHg @ HR of 123/min Mild mitral regurgitation. Mild pulmonary hypertension.Estimated RVSP is 38 mmHg. Findings: Study Quality * Technically adequate exam. ECG Findings * Uncertain rhythm with BBB. Left Ventricle * LVEF 35-40%. * Mild concentric left ventricular hypertrophy. * Indeterminate diastolic function. * Definity echo contrast was used. IVC * Normal IVC dimensions and inspiratory collapse. Right Ventricle * Normal right ventricular structure and function. Left Atrium * Moderately dilated left atrium. Pericardium * There is a trivial pericardial effusion present. Aortic Valve * Moderately sclerotic aortic valve leaflets. * No aortic stenosis. * No aortic regurgitation. * Aortic valve not well visualized. Tricuspid Valve * Mild tricuspid regurgitation. * Mild pulmonary hypertension.Estimated RVSP is 38 mmHg. * Estimated RA pressure is 4 mmHg. * Estimated RVSP is 38 mmHg. Mitral Valve * Mild mitral stenosis.Mean transmitral gradient is 5 mmHg @ HR of 123/min * * Moderate mitral annular calcification * Mild mitral regurgitation. Pulmonic Valve * Mild pulmonic regurgitation. Consult Discharge Plan - Plan Referrals: Trupti Ojeda MD [Primary Care Provider] - 08/14/19 11:15 am (1) Acute exacerbation of CHF (congestive heart failure) Qualifiers: Heart failure type: combined systolic and diastolic Qualified Code(s): I50.43 - Acute on chronic combined systolic (congestive) and diastolic (congestive) h eart failure (2) Coronary artery disease Qualifiers: Coronary Disease-Associated Artery/Lesion type: bypass graft [place] vs. transplanted heart: [place] heart Associated angina: without angina Qualified C ode(s): I25.810 - Atherosclerosis of coronary artery bypass graft(s) without angina pectoris (4) Hypothyroidism Qualifiers: Hypothyroidism type: unspecified Qualified Code(s): E03.9 - Hypothyroidism, unspecified (6) Hypertension Qualifiers: Hypertension type: unspecified Qualified Code(s): I10 - Essential (primary) hypertension (7) HLD (hyperlipidemia) Qualifiers: Hyperlipidemia type: unspecified Qualified Code(s): E78.5 - Hyperlipidemia, unspecified
[2018-11-05] MEDS ORDERED: NON-FORMULARY MEDICATION 1 EACH EACH (Biotin 10,000 MCG) PO SCH (09:00)
[2018-11-05] MEDS ORDERED: Isosorbide MONOnitrate (24 HR) 30 MG TAB.ER.24H PO SCH (09:00)
[2018-11-05] MEDS ORDERED: Metoprolol XL (24 HR) Succ 50 MG TAB.ER.24H PO SCH (09:00)
[2018-11-05] MEDS: Fluticasone Propionate Nasal 50 MCG/SPRAY BOTTLE NS SCH (09:49)
[2018-11-05] MEDS: Potassium Chloride Elixir 20 MEQ/15 ML UDC PO SCH ×2 (09:50→11:33)
[2018-11-05] MEDS: Furosemide 40 MG/4 ML VIAL IVP SCH ×2 (10:12→17:39)
--- NOTE | 2018-11-05 10:16 | Cardiology Consult Note ---
<Angelika,Mirna Nadia - Last Filed: 11/05/18 12:46> Date of Encounter: 11/05/18 Time of Encounter: 10:14 Assessment and Plan (1) CHF (congestive heart failure), NYHA class IV Current Visit: Yes Status: Acute Development of SOB while sleeping, pulmonary effusion, hypoxia consistent with worsening CHF. - Cilostazol (Pletal) stopped 11/04/18 in light of CHF - Patient able to lie flat for 1 hr: Ok for catherization to evaluate stent and graft patency - Evaluate renal function post-cath and start lisinopril if Cr WNL - Continue furosemide to pursue resolution of ascites - Continue other home cardiac medications (per Rx note 11/04, patient was switched to Plavix fro mBrilinta on 09/22/18 due to cost) - HR < 100 over past 24 hrs; monitor for persistent tachycardia despite appropriate metoprolol Qualifiers: Congestive heart failure type: combined Congestive heart failure chronicity: acute on chronic Qualified Code(s): I50.43 - Acute on chronic combined systolic (congestive) and diastolic (congestive) heart failure (2) Anemia Current Visit: Yes Status: Chronic Lab results show Hgb stable at 10 during this admission, however in July Hbg was 8. Persistent anemia may contribute to hypoxia as well as sinus tachycardia, and may reflect underlying CHF. Normocytic MCV not consistent with iron deficiency anemia. - Consider workup for cause of anemia - Consider starting supplementation appropriate to cause Qualifiers: Anemia type: unspecified type Qualified Code(s): D64.9 - Anemia, unspecified Discussion w patient/family: The assessment and plan as outlined above was discussed with the patient and/or family members who expressed understanding and agreement. All questions were answered. Thank you for involving us in the care of your patient. Please call with any questions. History of Present Illness Consult date: 11/05/18 History of present illness: Ms. Liang is a 78 year old female Past Med Surg Social Fam HX - Past Medical History Medical history: COPD, coronary artery disease, hyperlipidemia, hypertension, osteoporosis, thyroid disease, other Additional medical history: stomach aneurysm Psychiatric history: anxiety, depression - Past Surgical History Surgical History: carotid endarterectomy, coronary bypass (CABG) Additional surgical history: Aortic Aneurism Repair, Stents in kidneys, 9 vascular surgeries to legs, [facility] 02/10/14 - Social History Smoking Status: Former smoker Smokeless Tobacco Status: No Alcohol use: none Drug use: none - Family History Sister Living Status: Hx Family Cardiac Disorders: Yes Son Hx Family Cardiac Disorders: Yes ([place]) Father Living Status: Hx Family Cardiac Disorders: Yes (CAD) Mother Living Status: Hx Family Cardiac Disorders: Yes (CAD) Medications and Allergies Alendronate Sodium [Fosamax] 70 mg PO MO 04/21/18 [History] Aspirin [Lo-Dose Aspirin EC] 81 mg PO DAILY 04/21/18 [History] B Complex with Vitamin C [[place] with C] 1 tab PO DAILY 04/21/18 [History] Biotin 10,000 mcg PO DAILY 04/21/18 [History] Calcium Carb,Cit/D3/Phytostrol [Citracal D + Heart Health Tab] 1 tab PO DAILY 04/21/18 [History] Cholecalciferol (D-3) [Vitamin D] 5,000 unit PO DAILY 04/21/18 [History] Cilostazol 50 mg PO BID 04/21/18 [History] Fluticasone Propionate Nasal [Flonase] 2 spr NS DAILY 04/21/18 [History] Isosorbide MONOnitrate [Isosorbide Mononitrate ER] 30 mg PO BID 04/21/18 [History] Lactobacillus Combination No.9 [Adult 50 + Probiotic] 1 cap PO DAILY 04/21/18 [History] Potassium Chloride [K-Tab ER] 20 meq PO BID 04/21/18 [History] Rosuvastatin Calcium 20 mg PO DAILY 04/21/18 [History] Sertraline [Zoloft] 75 mg PO DAILY 04/21/18 [History] Budesonide/Formoterol 160/4.5 [Symbicort 160/4.5] 2 puff IH BIDR #1 inh 04/25/18 [Rx] Tiotropium [place] [Spiriva Respimat] 2 puff IH DAILY 06/26/18 [History] Ranolazine [Ranexa] 500 mg PO BID #60 tab.er.12h 06/28/18 [Rx] Albuterol Sulfate [Ventolin Hfa] 2 puff IH Q6H PRN 08/15/18 [History] LORazepam [Ativan] 1 mg PO HS 08/15/18 [History] Metoprolol XL (24 HR) Succ [Toprol Xl] 50 mg PO DAILY 08/15/18 [History] Albuterol Neb [Proventil Neb] 2.5 mg IH QAM 11/04/18 [History] Clopidogrel [Plavix] 75 mg PO DAILY 11/04/18 [History] Furosemide [Lasix] 40 mg PO DAILY PRN 11/04/18 [History] Levothyroxine Sodium 88 mcg PO QAM 11/04/18 [History] Metoprolol XL (24 HR) Succ [Toprol Xl] 25 mg PO DAILY 11/04/18 [History] 3 Allergy/AdvReac Type Severity Reaction Status Date / Time lactose AdvReac Abdominal Verified 11/03/18 07:11 Pain All Systems Review: The remainder of the systems were reviewed and are negative apart from findings noted 11/04/18. Physical Examination Vital Signs, Last 4 Hours Temp Pulse Resp BP Pulse Ox 11/05/18 07:56 98.3 F 91 17 122/68 95 11/05/18 07:42 16 99 General: Conversant, No Apparent Distress HEENT: Atraumatic, Normocephaly, Mucus Membranes Moist Neck: No JVD Cardiac: Reg Rate and Rhythm, Normal S1 and S2, No Murmur Lungs: Normal Breath Sounds, No Wheeze, Rales, Rhonchi Neuro: Alert and responsive, No focal deficits noted Abdomen: Non-Tender, Other (Moderate ascites) Skin: No rashes noted on visualized skin (Patches of irritation w/o ulceration on posterior) Musculoskeletal: No Chest Wall Tenderness Extremities: No Clubbing, No Cyanosis, No Edema, Normal Pulses (Pulses palpable bilaterally UE and LE) Results 11/05/18 04:19 11/05/18 04:19 Lab Results 11/05/18 11/05/18 04:19 04:19 WBC 7.0 Hgb 9.3 L Hct 29.6 L Plt Count 175 Sodium 134 L Potassium 2.9 L Chloride 97 L Carbon Dioxide 30 H BUN 14 Creatinine 0.78 Glucose 102 Calcium 8.1 L - Imaging and Cardiology Chest Xray: report reviewed, image reviewed Cardiac cath: pending (Patient was able to tolerate lying flat for 1 hour this a.m. w/o difficulty.) - EKG Interpretation EKG results cardiology: personally reviewed, sinus rhythm, left bundle branch b lock ('M' wave avL, monophasic R in V6, QRS > 120 (139ms), LAD; no acute changes from EKG 11/03/18) Consult Discharge Plan - Plan Referrals: Trupti Ojeda MD [Primary Care Provider] - 11/19/18 11:15 am <MalikshahidaKimi - Last Filed: 11/05/18 13:05> Date of Encounter: 11/05/18 - Attending Attestation I examined this patient and my medical decision-making was reviewed with the Resident Physician. I agree with the documented findings, disposition and treatment plan as described. Ms. Liang presents with worsening SOB in setting of advanced pulmonary emp hysema. Incidentally discovered to have acute systolic CHF, chronicity unknown LVEF ~35% and flat troponins probably representing demand ischemia. Discussed management options with the patient and family. Patient with known CAD and prior bypass. Prior outpatient reports document normal LVEF. Offered the option of LHC vs medical management. The R/B/A of proceeding with LHC were discussed with the patient. Patient expressed understanding and has decided to proceed. Patient able to lay flat this morning with supplemental oxygen. Known PVD and prior peripheral bypass. Hgb is stable. No prior bleeding events. Renal function normal. Case discussed with Interventional Cardiology. Assessment and Plan Discussion w patient/family: The assessment and plan as outlined above was discussed with the patient and/or family members who expressed understanding and agreement. All questions were answered. Thank you for involving us in the care of your patient. Please call with any questions. History of Present Illness History of present illness: Ms. Liang is a 78 year old female All Systems Review: The remainder of the systems were reviewed and are negative Physical Examination Vital Signs, Last 4 Hours Temp Pulse Resp BP Pulse Ox 11/05/18 11:08 18 95 11/05/18 10:58 98.1 F 95 18 98/59 99 Results 11/05/18 04:19 11/05/18 04:19 Lab Results 11/05/18 11/05/18 04:19 04:19 WBC 7.0 Hgb 9.3 L Hct 29.6 L Plt Count 175 Sodium 134 L Potassium 2.9 L Chloride 97 L Carbon Dioxide 30 H BUN 14 Creatinine 0.78 Glucose 102 Calcium 8.1 L
[2018-11-05] MEDS ORDERED: *HR* Heparin 10,000 UNIT/10 ML VIAL ONE (13:18)
[2018-11-05] MEDS ORDERED: Heparin 1,000 UNITS/500 mL 500 ML ONE (13:18)
[2018-11-05] MEDS ORDERED: ISOVUE-370 200 ML INFUS..BTL ONE (13:18)
[2018-11-05] MEDS ORDERED: Nitroglycerin 1,000 MCG/10 ML VIAL IV ONE (13:19)
[2018-11-05] MEDS ORDERED: 0.9 % Sodium Chloride 1,000 ML ONE ×2 (13:19→14:48)
--- NOTE | 2018-11-05 13:45 | Event Note ---
<Mirna Carney - Last Filed: 11/05/18 13:42> Date of Encounter: 11/05/18 Time of Encounter: 13:42 (Prior to cath) I was asked to clarify patient's code status prior to [facility] catheterization on 11/05/18 due to discrepancy between paperwork in patient's file from 2016 indicating DNR-CC-A, versus Full Code listed on chart. After discussing with Mrs. Liang and answering her questions, she agreed that she wanted to be Full Code for the duration of the catheterization and for 24 hours following the procedure. She may decide to revisit her status after the 24-hour period has passed. <Kimi Greco - Last Filed: 11/05/18 17:08> Date of Encounter: 11/05/18 Agree with Resident note.
[2018-11-05] MEDS ORDERED: *HR* Midazolam HCl 2 MG/2 ML VIAL ONE ×2 (14:53→15:10)
[2018-11-05] MEDS ORDERED: *HR* FentaNYL (PF) 100 MCG/2 ML VIAL ONE (14:53)
--- NOTE | 2018-11-05 15:43 | Pre-Sedation Evaluation ---
Pre-sedation evaluation - Pre-sedation checklist Date of procedure: 11/05/18 Procedure: [facility] Recent Vitals: Last Vital Signs Temp 98.1 F 11/05/18 10:58 Pulse 95 11/05/18 10:58 Resp 18 11/05/18 11:08 BP 98/59 11/05/18 10:58 Pulse Ox 95 11/05/18 11:08 H&P (including ROS) documented in medical record: Yes Previous reaction to sedatives/anesthetics: No Dietary Status: NPO after Midnight Airway Assessment: Patient can open mouth completely, TMJ function normal ASA Classification *see protocol: CLASS II-Mild systemic disease Plan of Care: Pt appropriate candidate for procedure/moderate/conscious sedation, Risks/benefits of procedure/sedation discussed w/ patient/family Cardiac Registry (Cardio Only) - Functional Capacity Functional Capacity: >=4 METS with symptoms - Clincal Frailty Scale Clinical Frailty Scale: Managing Well
--- NOTE | 2018-11-05 15:57 | Invasive Diagnostic Lab Proc ---
Name: Blessing Liang Date of Study: 11/05/2018 Date: 1940 Ht: 61.8in Medical Record#: [id number] Age: 78 Wt: 108.03lb Gender: Female BSA: 1.47 Order #: [id number] BMI: 19.88 Physicians Procedure Physician: Antelmo Cali MD, FACC Referring MD: Referring MD: Staff Name Position Time In WenLinda RN Monitor 02:39 PM Sarah Beth Joyner RN Bone Worker 02:39 PM Daniel Britt RN Nurse 02:39 PM Mila Keen RT (R) Scrub 02:39 PM Jacquie Millard RT (R) Scrub 02:47 PM Procedures Performed Procedure L HRT ART/GRFT ANGIO Pre-Procedure Checklist Informed consent is complete signed and on chart. H&P is on chart. ID band is on and ID verified with patient. Patient NPO for procedure The procedure was described for the patient and questions were answered. ECG is on chart. Plan of Care Patient will tolerate the procedure without complications. Adequate level of comfort will be maintained. Hemodynamics will remain stable Patient will recover from procedure without complications. Respiratory function will be maintained. Cardiac rhythm will remain stable. Patient temperature will be maintained. Patient and/or family have verbalized understanding of the procedure. Patient Education Chief Complaint/Reason for Test: Cardiac Cath Developmental Category: Geriatric (65+ years) Developmentally Appropriate for Age: Yes Learning Barriers: None Education Needs: Procedure Education Method: Verbal Information Taught: Cardiac Cath Educational Evaluation: Able to repeat information Intravenous Access Time IV Size Location DC'd Fluid/Drip Rate Units RN 20g 1 /" Patent On Arrival 0.9NaCl mg/hr Allergies Warfarin lactose Vital Signs Time BP (mmHg) HR (bpm) O2 Sat. RR (bpm) LOC 02:42 PM / % 5 = Fully awake and oriented or at pre-proc level 02:42 PM / % 5 = Fully awake and oriented or at pre-proc level 03:00 PM / % 4 = Oriented but drowsy 03:17 PM / % 4 = Oriented but drowsy 02:53 PM 121 / 72 88 100 % 26 02:58 PM 110 / 67 91 100 % 22 03:03 PM 108 / 58 94 100 % 18 03:08 PM 104 / 57 81 100 % 22 03:13 PM 100 / 57 87 100 % 18 03:18 PM 103 / 60 80 100 % 27 03:23 PM 101 / 49 85 100 % 19 03:28 PM 109 / 59 83 100 % 30 03:33 PM 112 / 58 83 100 % 22 Procedural Medications Time Medication Dose Units Method Given By 02:42 PM Oxygen 2 L/min nasal cannula Sarah Beth Joyner RN 02:54 PM Versed 1 mg Intravenous [place] RN 02:54 PM Fentanyl 25 mcg Intravenous Sarah Beth Joyner RN 03:00 PM Versed 1 mg Intravenous [place] RN 03:00 PM Fentanyl 25 mcg Intravenous Sarah Beth Joyner RN 03:11 PM Lidocaine 2% 10 ml Subcutaneous Antelmo Cali MD, FACC 03:11 PM Versed 1 mg Intravenous Sarah Beth Joyner RN ASA Classification: CLASS II- Mild systemic disease (i.e. well-controlled diabetes, hypertension, asthma, cigarette smoking) Harley Score Preprocedure Postprocedure Activity 2- Moves 4 extremities sustained head lift Activity 2- Moves 4 extremities sustained head lift Circulation 2- SBP +/= 20 points of pre-anesthetic level Circulation 2- SBP +/= 20 points of pre-anesthetic level Consciousness 2- Awake and alert oriented x 3 Consciousness 2- Awake and alert oriented x 3 O2 Saturation 2- Able to maintain O2 satruation of 92% on room air O2 Saturation 2- Able to maintain O2 satruation of 92% on room air Respiratory 2- Able to deep breathe and cough well Respiratory 2- Able to deep breathe and cough well Total Score 10 Total Score 10 Contrast Agent: Isovue Diagnostic Contrast: 108 ml Total Contrast: 108 ml Fluoro Dose: 22 mGy Procedure Log Time Note Enter By 02:39 PM 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 Informed consent was obtained. :41 PM Procedure start 14:41 mm 02:42 PM CathStat 02:42 PM Time: 14:42 Oxygen on at 2 L/min per nasal cannula by Sarah Beth Joyner RN [place]: PM Time: 14:42 Patient comfortable and pain free: Yes :42 PM Time: 14:42LOC: 5 = Fully awake and oriented or at pre-proc level 02:42 PM ASA Class CLASS II- Mild systemic disease (i.e. well-controlled diabetes, hypertension, asthma, cigarette smoking) mm 02:47 PM Jacquie Millard RT (R) Position: Scrub Time in: 14:47 02:47 PM Hair removed from procedure site in procedure lab using clippers. Bilateral groin prepped with Chloraprep by Sarah Beth Joyner RN, then patient was draped. Skin intact. 02:47 PM Reference ECG taken 02:47 PM Recorded ECG: HR=97 Condition=Condition 1 02:48 PM Vitals capture started with the following parameters, Patient=Adult, Interval=5 min, Initial Fuihrcsm=805 mmHg, Deflation Rate=3 mmHg, Cuff placed on Right Arm 02:52 PM Vitals capture started with the following parameters, Patient=Adult, Interval=5 min, Initial Mumjznrw=604 mmHg, Deflation Rate=3 mmHg, Cuff placed on Right Arm 02:53 PM HR=88 bpm, DKST=465/72 mmhg, UiO6=758.0 %, Resp=26 B/min 02:54 PM Time: 14:54 Versed 1 mg Intravenous Given by Sarah Beth Joyner RN [place] 02:54 PM Time: 14:54 Fentanyl 25 mcg Intravenous Given by [facility] 02:58 PM HR=91 bpm, TWRC=851/67 mmhg, JaG4=039.0 %, Resp=22 B/min 03:00 PM Time: 14:42LOC: 5 = Fully awake and oriented or at pre-proc level [email or web address] 03:00 PM Time: 14:42 Patient comfortable and pain free: Yes [email or web address] 03:00 PM Time: 15:00 Versed 1 mg Intravenous Given by Sarah Beth Joyner RN [place] 03:00 PM Time: 15:00 Fentanyl 25 mcg Intravenous Given by Sarah Beth Joyner RN 03:03 PM HR=94 bpm, BVBJ=881/58 mmhg, FfA4=000.0 %, Resp=18 B/min 03:08 PM HR=81 bpm, JALE=885/57 mmhg, JwU8=230 %, Resp=22 B/min 03:09 PM Time out was performed according to hospital policy. Conscious sedation and anesthesia was achieved (see medication log with in this report above) mmracheal 03:11 PM Time: 15:11 10 ml Lidocaine 2% to right groin Subcutaneous Given by Antelmo Cali MD, [facility] racheal 03:11 PM Time: 15:11 Versed 1 mg Intravenous Given by Sarah Beth Joyner RN 03:12 PM Micro-Introducer Kit utilized for sheath placement 03:13 PM Access obtained by percutaneous puncture. 5Fr 10cm Terumo [place] sheath placed in right Femoral artery. [id number] mm 03:13 PM HR=87 bpm, ULDS=425/57 mmhg, RyR7=135.0 %, Resp=18 B/min 03:14 PM 0.035 145cm Navilyst 3mmJ wire [id number] mm 03:14 PM 5Fr FL 4 catheter inserted over the wire [facility] 03:14 PM wire removed 03:14 PM LCA angiography performed in multiple views. 03:15 PM Recorded Pressure: Ao, HR=86, Condition=Condition 1 (Aorta) Ao 101/63/81 03:17 PM Time: 15:00LOC: 4 = Oriented but drowsy mm 03:17 PM Time: 15:00 Patient comfortable and pain free: Yes oumm 03:17 PM Catheter removed [facility] 03:17 PM 5Fr FR 4 catheter inserted over the wire [facility] mm 03:17 PM Lesion found in Mid LAD. Pre Stenosis: 100 Pre ROGER Flow: oumm 03:17 PM Lesion found in Mid Circumflex. Pre Stenosis: 99 Pre ROGER Flow: tsoummers 03:17 PM Lesion found in 1st Marginal. Pre Stenosis: 99 Pre ROGER Flow: tsoummers 03:18 PM Circumflex, Obtuse Marginal, Left Posterior Descending, and Left Posterolateral Coronary Arteries with 99 % stenosis. If graft is supplying this area, 0 % stenosis tsoummers 03:18 PM Right Coronary, Right Posterior Descending Arteries with Right Posterolateral and Acute Marginal branches with 100 % stenosis. If graft is supplying this area, 0 % stenosis tsoummers 03:18 PM HR=80 bpm, XKVW=560/60 mmhg, KhP5=726.0 %, Resp=27 B/min 03:18 PM Mid/Distal Left Anterior Descending Coronary Artery and diagonal branches with 100% stenosis. If graft is supplying this area, 0 % stenosis tsoummers 03:18 PM Lesion found in Mid RCA. Pre Stenosis: 100 Pre ROGER Flow: tsoummers 03:18 PM RCA angiography performed in multiple views. tsoummers 03:19 PM Coronary Dominance: right tsoummers 03:19 PM SVG to the RPDA angio performed in multiple views. tsoummers 03:22 PM repositioned to view CAR tsoummers 03:22 PM 0.035 260cm Navilyst 3mmJ wire [id number] tsoummers 03:22 PM Catheter removed tsoummers 03:23 PM 5Fr IM catheter inserted over the wire [id number] tsoummers 03:23 PM wire removed tsoummers 03:23 PM HR=85 bpm, KHCK=062/49 mmhg, WiR3=163.0 %, Resp=19 B/min 03:23 PM Recorded Pressure: Ao, HR=92, Condition=Condition 1 (Aorta) Ao 123/54/81 03:24 PM Left MARGI to the LAD angio performed in multiple views. tsoummers 03:25 PM Catheter removed tsoummers 03:25 PM 5Fr Pigtail catheter inserted over the wire [facility] tsoummers 03:26 PM Catheter crossed the aortic valve and was selectively placed in the left ventricle. Pressures recorded on pullback for left heart catheterization. tsoummers 03:26 PM Bolus angiogram of left Ventricle complete: 12 ml/sec for a total of 35 mls tsoummers 03:26 PM Pressure channel 1 zeroed. 03:26 PM Recorded Pressure: LV, HR=86, Condition=Condition 1 (Left Ventricle) LV 113/3/15 03:26 PM Catheter removed tsoummers 03:27 PM Recorded Pressure: LV, Ao, HR=85, Condition=Condition 1 (Left Ventricle) LV 110/5/16, (Aorta) Ao 107/42/66 03:27 PM Bolus angiogram of right Femoral complete: 4 ml/sec for a total of 7 mls tsoummers 03:28 PM HR=83 bpm, WLPP=153/59 mmhg, ClJ6=319.0 %, Resp=30 B/min 03:29 PM Bolus angiogram of right Femoral complete: 4 ml/sec for a total of 7 mls tsoummers 03:30 PM Bolus angiogram of right Femoral complete: 5 ml/sec for a total of 10 mls tsoummers 03:31 PM Procedure completed at 15:31 11/05/2018 tsoummers 03:32 PM Did you address ROGER flow and Dominance? YesCoronary Dominance: right tsoummers 03:32 PM Time: 15:17 Patient comfortable and pain free: Yes tsoummers 03:32 PM Time: 15:17LOC: 4 = Oriented but drowsy tsoummers 03:33 PM Sign out completed: Radiation Dose 94.54 mGy, 21.8 Gy/cm2 Fluoro Time: 4.8 Isovue 370 - 200ml contrast 108 ml given by Antelmo Cali MD, [facility]. Complications: None. 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 Sedation minutes 38. Cardiac Rehab Consult needed: No. Confirmed administered medications: Yes tsoummers 03:33 PM Isovue 370 - 200ml,1 Bottle(s) used. tsoummers 03:33 PM Estimated Blood Loss: minimal tsoummers 03:33 PM HR=83 bpm, YFUQ=156/58 mmhg, KuQ7=061.0 %, Resp=22 B/min 03:33 PM Post Blood Pressure 112/58 tsoummers 03:33 PM Information taught Cardiac Cath tsoummers 03:33 PM Education needs Procedure, Plan of Care, and Responsibilities of Patient in Care tsoummers 03:33 PM Learning barriers :None tsoummers 03:33 PM Education Methods Verbal tsoummers 03:33 PM Education evaluation Able to repeat information [email or web address] 03:34 PM Plavix, Effient or Brilinta given No tsoummers 03:34 PM Delay to floor No tsoummers 03:34 PM Family placed in consult room. tsoummers 03:34 PM Arterial sheath pulled using manual compression and V+ Pad for 15 minutes by Sarah Beth Joyner RN 03:43 PM Report given to Yazmin PEPPER Pt taken to 2N Room #6. 15:43 [email or web address] 03:49 PM Site status No bleeding/ No Hematoma - Rt Groin as reported by Sarah Beth Joyner RN at 15:49 ciera 03:49 PM Opsite applied tsvirginiammracheal 03:49 PM Patient out of room: 15:49 [email or web address] Complications Complication None Hemodynamics Pressures Site Systolic/A Wave Diastolic/V Wave Mean AO 101 63 81 AO 123 54 81 LV 113 3 15 LV 110 5 16 AO 107 42 66 Post Procedure Information Blood Pressure: 112/58 mmHg Post procedural instructions were given Closure Device Time Device Success/Fail 11/05/2018 3:34:00 PM Manual Compression Successful Site Checks Time Location Status Staff Sheath In? Note 03:49 PM Rt Groin No bleeding/ No Hematoma Sarah Beth Joyner RN Pulses Time Site Pre-Procedure Post-Procedure Note Bilateral radial 2+ Bilateral DP & PT 1+ Updated by Linda Carver RN on 11/05/2018 3:50:17 PM electronically signed on 11/05/2018 3:50:37 PM with status of Final
[2018-11-05] MEDS: *HR* LORazepam 1 MG TABLET PO PRN (20:58)
[2018-11-06] MEDS: Albuterol 2.5 MG/3 ML NEBULIZER IH SCH ×3 (03:57→11:36)
[2018-11-06] MEDS ORDERED: *HR* Heparin 5,000 UNIT/ML VIAL SQ SCH (06:00)
[2018-11-06] MEDS: Budesonide/Formoterol 160/4.5 1 PUFF INH IH SCH (08:00)
[2018-11-06] MEDS: Tiotropium 18 MCG inhalation IH SCH (08:00)
[2018-11-06] MEDS: Vitamin B Complex/Vit C/Vit E 1 EACH TABLET PO SCH (08:21)
[2018-11-06] MEDS: Aspirin Enteric Coated 81 MG Tablet PO SCH (08:22)
[2018-11-06] MEDS: Ranolazine 500 MG TAB.ER.12H PO SCH (08:22)
[2018-11-06] MEDS: Isosorbide MONOnitrate (24 HR) 30 MG TAB.ER.24H PO SCH (08:22)
[2018-11-06] MEDS: Cholecalciferol (D-3) 1,000 UNIT (25MCG) TABLET PO SCH (08:22)
[2018-11-06] MEDS: Fluticasone Propionate Nasal 50 MCG/SPRAY BOTTLE NS SCH (08:26)
[2018-11-06 08:30] LABS: Basophils % 0.1 %; Eosinophils # 0.1 K/mcL (0.0-0.6); Eosinophils % 1.5 %; Hematocrit 28.8 % (35.3-44.9); Hemoglobin 8.9 g/dL (11.5-15.4); Immature Granulocytes % 0.4 % (0-4); Lymphocytes # 1.5 K/mcL (0.6-4.6); Lymphocytes % 17.7 %; Mean Corpuscular HGB Conc 30.9 g/dL (31.6-35.5); Mean Corpuscular Hemoglobin 30.4 pg (28.0-33.3); Mean Corpuscular Volume 98.3 fL (83.0-100.0); Mean Platelet Volume 10.6 fL (9.4-12.4); Monocytes # 0.5 K/mcL (0.0-1.3); Neutrophils # 6.3 K/mcL (1.6-8.9); Platelet Count 171 K/mcL (140-400); Red Blood Count 2.93 M/mcL (3.82-4.97); Segmented Neutrophils % 74.3 %; White Blood Count 8.5 K/mcL (4.3-11.1)
[2018-11-06 08:56] LABS: BUN/Creatinine Ratio 16 (6-26); Blood Urea Nitrogen 15 mg/dL (8-23); Calcium 8.8 mg/dL (8.6-10.3); Carbon Dioxide 30 mEq/L (23-29); Chloride 100 mEq/L (98-107); Glucose 132 mg/dL (70-105); Osmolality,Calculated 285 (280-300); Potassium 4.5 mEq/L (3.5-5.1); Sodium 136 mEq/L (136-145); eGFR For African Americans > 60 (> 60); eGFR For Non-African Americans 57 (> 60)
[2018-11-06] MEDS ORDERED: Metoprolol XL (24 HR) Succ 50 MG TAB.ER.24H PO SCH (09:00)
[2018-11-06] MEDS: Furosemide 40 MG/4 ML VIAL IVP SCH (09:47)
--- NOTE | 2018-11-06 11:04 | Cardiology Progress Note ---
<Mirna Carney - Last Filed: 11/06/18 12:30> Date of Encounter: 11/06/18 Time of Encounter: 09:20 Assessment and Plan (1) CHF (congestive heart failure), NYHA class IV Status: Resolved Development of SOB while sleeping, pulmonary effusion, hypoxia consistent with worsening CHF. - Patient looks comfortable, breathing improved since admission. Ascites improving. - Cath site, right femoral v., healing well w/o erythema, edema, pain or exudate - Heart rate in 90s - low 100s. Add metoprolol as home medication. - Cr 0.9: recommend starting lisinopril with dosing determined by OP care, Dr. Soriano, due to patient's low BMI (19.4) and mild hypotension (113/96 this a.m.) - Followup with Dr. Soriano w/in 7 to 10 days. - Aftercare of cath site discussed with patient (no soaking, no heavy lifting, no driving for 1 week) - Cardiology signing off Qualifiers: Congestive heart failure type: combined Congestive heart failure chronicity: acute on chronic Qualified Code(s): I50.43 - Acute on chronic combined systolic (congestive) and diastolic (congestive) heart failure (2) Anemia Status: Chronic Lab results show Hgb stable at 10 during this admission, however in July Hbg was 8. Persistent anemia may contribute to hypoxia as well as sinus tachycardia, and may reflect underlying CHF. Normocytic MCV not consistent with iron deficie ncy anemia. - Consider workup for cause of anemia - Consider starting supplementation appropriate to cause Qualifiers: Anemia type: unspecified type Qualified Code(s): D64.9 - Anemia, unspecified Discussion w patient/family: The assessment and plan as outlined above was discussed with the patient and/or family members who expressed understanding and agreement. All questions were answered. Thank you for involving us in the care of your patient. Please call with any questions. Subjective Principal diagnosis: CHF Interval history: VS stable, mild tachycardia this morning at 104, BP 113/94, 94% O2 on 2L NC. Patient received LHC 11/04 w/o stenting. No acute events overnight. Objective Vital Signs, Last 4 Hours Temp Pulse Resp BP Pulse Ox 11/06/18 08:00 16 94 11/06/18 07:42 98.3 F 104 18 113/94 96 11/06/18 07:33 93 General: Conversant, No Apparent Distress HEENT: Atraumatic, Normocephaly, Mucus Membranes Moist Neck: No JVD, Normal carotid pulses Cardiac: Reg Rate and Rhythm, Normal S1 and S2, No Murmur Lungs: Normal Breath Sounds (Diminished bilaterally but improved compared to admit) Neuro: Alert and responsive, No focal deficits noted Abdomen: Soft, Non-Tender, Other (Ascites decreased from admit) Skin: Other (Mild bruising along lower extremities) Musculoskeletal: No Chest Wall Tenderness Extremities: No Clubbing, No Cyanosis, No Edema, Normal Pulses, Other (Pulses palpable bilaterally UE and LE, but weak as they have been ) Results 11/06/18 08:16 11/06/18 08:16 Lab Results 11/06/18 11/06/18 08:16 08:16 WBC 8.5 Hgb 8.9 L Hct 28.8 L Plt Count 171 Sodium 136 Potassium 4.5 Chloride 100 Carbon Dioxide 30 H BUN 15 Creatinine 0.95 Glucose 132 H Calcium 8.8 - Imaging and Cardiology Cardiac cath: report reviewed, image reviewed Consult Discharge Plan - Plan Instructions: Heart Failure (DC), Left Heart Catheterization (DC), Coronary Artery Disease in Women (GEN) Referrals: Trupti Ojeda MD [Primary Care Provider] - 11/19/18 11:15 am <Deandre Uriostegui - Last Filed: 11/07/18 09:10> Date of Encounter: 11/06/18 Assessment and Plan Discussion w patient/family: The assessment and plan as outlined above was discussed with the patient and/or family members who expressed understanding and agreement. All questions were answered. Thank you for involving us in the care of your patient. Please call with any questions. Results 11/06/18 08:16 11/06/18 08:16 - Attending Attestation I have personally performed a face to face evaluation on this patient. I have reviewed and agree with the documented findings and care plan as documented by the resident. History and Exam by me shows: Cardiac catheterization revealed patent grafts. Continue medical therapy with GDMT. ANDREA inhibitor on hold because of borderline low blood pressure, would recommend restarting it as outpatient. Thanks for the consult, please call with questions. Deandre Uriostegui MD [facility]
--- NOTE | 2018-11-06 11:25 | Discharge Summary ---
Date of Encounter: 11/06/18 Time of Encounter: 10:00 - Discharge Diagnosis (1) Acute exacerbation of CHF (congestive heart failure) Priority: Primary Status: Acute Assessment and Plan: 78 year old female with past medical history of COPD on 2-1/2 L at home, coronary artery disease, hyperlipidemia, hypertension, osteoporosis, thyroid disease who presented with complaints of shortness of breath associated with nonproductive cough. She denies any chest pain,palpitation, orthopnea, PND , palpitations, lightheadedness or dizziness or progressive worsening of LE EDEMA. CXR revealed Cardiomegaly with mild vascular congestion and interstitial infiltrates likely representing edema and congestive failure. The patient was evaluated by the ER staff and her EKG revealed no significant ST changes however she was tachycardiac, hypoxic and tachypneic which raised a concern for possible PE. The patient was treated with Lasix and started on high flow oxygen and CTA of the chest to rule out PE was obtained and was negative, the patient was admitted for further evaluation and management. She was assessed with acute CHF and improved on BID lasix. She had an echo done showing a new depressed EF of 35%. She was seen by cardiology and had a cardiac cath done which showed severe LV dysfunction and non ischemic cardiomyopathy. She trung folow up with cardiology as an outpatient. cardiology held off on starting an lisa inhibitor due to her low BP. She will follow up with Dr. Saxena in a week. She was instructed to take her lasix twice daily. 35 minutes was spent discharging this patient Qualifiers: Heart failure type: combined systolic and diastolic Qualified Code(s): I50.43 - Acute on chronic combined systolic (congestive) and diastolic (congestive) heart failure (2) Coronary artery disease Priority: Primary Status: Chronic Qualifiers: Coronary Disease-Associated Artery/Lesion type: bypass graft [place] vs. transplanted heart: [place] heart Associated angina: without angina Qualified Code(s): I25.810 - Atherosclerosis of coronary artery bypass graft(s) without angina pectoris (3) Peripheral vascular disease Priority: Primary Status: Chronic (4) Hypothyroidism Priority: Primary Status: Chronic Qualifiers: Hypothyroidism type: unspecified Qualified Code(s): E03.9 - Hypothyroidism, unspecified (5) Elevated troponin Priority: Primary Status: Acute (6) Hypertension Priority: Primary Status: Chronic Qualifiers: Hypertension type: unspecified Qualified Code(s): I10 - Essential (primary) hypertension (7) HLD (hyperlipidemia) Priority: Primary Status: Chronic Qualifiers: Hyperlipidemia type: unspecified Qualified Code(s): E78.5 - Hyperlipidemia, unspecified (8) DVT prophylaxis Priority: Primary Status: Acute Hospital course: Ms. Liang is a 78 year old female - Time Spent with Patient Total time spent providing and/or coordinating discharge services: - Discharge Medications Prescriptions: Continued Aspirin [Lo-Dose Aspirin EC] 81 mg PO DAILY B Complex with Vitamin C [[place] with C] 1 tab PO DAILY Biotin 10,000 mcg PO DAILY Calcium Carb,Cit/D3/Phytostrol [Citracal D + Heart Health Tab] 1 tab PO DAILY Cholecalciferol (D-3) [Vitamin D] 5,000 unit PO DAILY Fluticasone Propionate Nasal [Flonase] 2 spr NS DAILY Isosorbide MONOnitrate [Isosorbide Mononitrate ER] 30 mg PO BID Lactobacillus Combination No.9 [Adult 50 + Probiotic] 1 cap PO DAILY Potassium Chloride [K-Tab ER] 20 meq PO BID Rosuvastatin Calcium 20 mg PO DAILY Sertraline [Zoloft] 75 mg PO DAILY Alendronate Sodium [Fosamax] 70 mg PO MO Budesonide/Formoterol 160/4.5 [Symbicort 160/4.5] 2 puff IH BIDR #1 inh Tiotropium [place] [Spiriva Respimat] 2 puff IH DAILY Ranolazine [Ranexa] 500 mg PO BID #60 tab.er.12h Albuterol Sulfate [Ventolin Hfa] 2 puff IH Q6H PRN PRN Reason: Shortness Of Breath LORazepam [Ativan] 1 mg PO HS Metoprolol XL (24 HR) Succ [Toprol Xl] 50 mg PO DAILY Metoprolol XL (24 HR) Succ [Toprol Xl] 25 mg PO DAILY Levothyroxine Sodium 88 mcg PO QAM Furosemide [Lasix] 40 mg PO DAILY PRN PRN Reason: SWELLING Clopidogrel [Plavix] 75 mg PO DAILY Albuterol Neb [Proventil Neb] 2.5 mg IH QAM Discontinued Cilostazol 50 mg PO BID Home Medications: Alendronate Sodium [Fosamax] 70 mg PO MO 04/21/18 [History] Aspirin [Lo-Dose Aspirin EC] 81 mg PO DAILY 04/21/18 [History] B Complex with Vitamin C [[place]ee with C] 1 tab PO DAILY 04/21/18 [History] Biotin 10,000 mcg PO DAILY 04/21/18 [History] Calcium Carb,Cit/D3/Phytostrol [Citracal D + Heart Health Tab] 1 tab PO DAILY 04/21/18 [History] Cholecalciferol (D-3) [Vitamin D] 5,000 unit PO DAILY 04/21/18 [History] Fluticasone Propionate Nasal [Flonase] 2 spr NS DAILY 04/21/18 [History] Isosorbide MONOnitrate [Isosorbide Mononitrate ER] 30 mg PO BID 04/21/18 [History] Lactobacillus Combination No.9 [Adult 50 + Probiotic] 1 cap PO DAILY 04/21/18 [History] Potassium Chloride [K-Tab ER] 20 meq PO BID 04/21/18 [History] Rosuvastatin Calcium 20 mg PO DAILY 04/21/18 [History] Sertraline [Zoloft] 75 mg PO DAILY 04/21/18 [History] Budesonide/Formoterol 160/4.5 [Symbicort 160/4.5] 2 puff IH BIDR #1 inh 04/25/18 [Rx] Tiotropium [place] [Spiriva Respimat] 2 puff IH DAILY 06/26/18 [History] Ranolazine [Ranexa] 500 mg PO BID #60 tab.er.12h 06/28/18 [Rx] Albuterol Sulfate [Ventolin Hfa] 2 puff IH Q6H PRN 08/15/18 [History] LORazepam [Ativan] 1 mg PO HS 08/15/18 [History] Metoprolol XL (24 HR) Succ [Toprol Xl] 50 mg PO DAILY 08/15/18 [History] Albuterol Neb [Proventil Neb] 2.5 mg IH QAM 11/04/18 [History] Clopidogrel [Plavix] 75 mg PO DAILY 11/04/18 [History] Furosemide [Lasix] 40 mg PO DAILY PRN 11/04/18 [History] Levothyroxine Sodium 88 mcg PO QAM 11/04/18 [History] Metoprolol XL (24 HR) Succ [Toprol Xl] 25 mg PO DAILY 11/04/18 [History] Allergies/Adverse Reactions: Allergy/AdvReac Type Severity Reaction Status Date / Time lactose AdvReac Abdominal Verified 11/03/18 07:11 Pain Date of admission: 11/03/18 21:17 Primary care physician: Trupti Ojeda Consults: 11/04/18 05:08 Consult to Cardiac Rehabilitation-Phase1 [CONS] Routine Comment: Reason for Consult: heart failure Call Completed: Yes Consult to Nurse Navigator [CONS] Routine Comment: 11/04/18 12:04 Consult to Cardiology [CONS] Routine Comment: Consulting Provider: Cardiology Charla Reason for Consult: Came with congestive heart failure, has low EF on echocardiogram. Elevated troponins Call Completed: Yes - Constitutional Vitals: Temp Pulse Resp BP Pulse Ox 98.3 F 104 16 113/94 94 11/06/18 07:42 11/06/18 07:42 11/06/18 08:00 11/06/18 07:42 11/06/18 08:00 General appearance: Present: A&O X 3 Exam: General: Alert and oriented, no physical distress, able to follow commands. Respiratory: No crackles, breath sounds decreased in both bases CVS: Normal heart sounds, no murmurs, no edema. Extremities: No peripheral edema, peripheral pulses intact. Lymph nodes: No lymphadenopathy Gastrointestinal: Soft, nontender abdomen, normal abdominal sounds. No distention noted. Genitourinary: No paravertebral tenderness. Neurological: Alert and oriented. No focal deficits. Cranial nerves II-XII intact. - Patient Status Disposition: Home, Self-Care Condition: Fair - Discharge Instructions Instructions: Heart Failure (DC), Left Heart Catheterization (DC), Coronary Artery Disease in Women (GEN) Follow Up With: Trupti Ojeda MD [Primary Care Provider] - 11/19/18 11:15 am
[2018-11-06 11:35] VITALS: BP 116/69
== END 2018-11-06 14:06 | disposition home or self-care (01) | DRG 286 ==
LOC: EMEROOARM 07:00 → 2NNU 07:00 → SUATTDRO 21:17
PROVIDERS: ADMIT Internal Medicine Nephrology; ATTEND Internal Medicine

== ENCOUNTER 2018-11-13 17:21 | Inpatient (IN) ==
[2018-11-13] MEDS ORDERED: Ipratropium/Albuterol Neb 3 ML IH ONE (17:34)
[2018-11-13] MEDS ORDERED: methylPREDNISolone 125 MG/2 ML VIAL IVP ONE (17:34)
[2018-11-13] MEDS ORDERED: Furosemide 40 MG/4 ML VIAL IVP ONE (17:34)
[2018-11-13] MEDS ORDERED: Ipratropium/Albuterol Neb 3 ML ONE (17:38)
[2018-11-13 18:06] LABS: Basophils % 0.2 %; Hematocrit 33.9 % (35.3-44.9); Hemoglobin 10.6 g/dL (11.5-15.4); Immature Granulocytes % 0.6 % (0-4); Lymphocytes # 1.9 K/mcL (0.6-4.6); Lymphocytes % 9.5 %; Mean Corpuscular HGB Conc 31.3 g/dL (31.6-35.5); Mean Corpuscular Hemoglobin 29.9 pg (28.0-33.3); Mean Corpuscular Volume 95.8 fL (83.0-100.0); Mean Platelet Volume 11.1 fL (9.4-12.4); Monocytes % 4.7 %; Neutrophils # 17.4 K/mcL (1.6-8.9); Platelet Count 281 K/mcL (140-400); Red Blood Count 3.54 M/mcL (3.82-4.97); Red Cell Distribution Width 15.8 % (11.5-14.5); White Blood Count 20.4 K/mcL (4.3-11.1)
[2018-11-13 18:16] LABS: Prothrombin Time 11.6 Seconds (9.4-12.1)
[2018-11-13 18:22] LABS: ABG Base Excess 1 mEq/L (-2 to 3); ABG HCO3 27 mEq/L (21-27); ABG Oxygen Saturation 94 % (95-98); ABG PCO2 46 mmHg (35-45); ABG PH 7.37 pH Units (7.32-7.45); ABG PO2 73 mmHg (85-104); ABG TCO2 28 mEq/L (20-26)
[2018-11-13 18:27] LABS: BUN/Creatinine Ratio 16 (6-26); Blood Urea Nitrogen 16 mg/dL (8-23); Calcium 9.5 mg/dL (8.6-10.3); Carbon Dioxide 27 mEq/L (23-29); Chloride 95 mEq/L (98-107); Glucose 164 mg/dL (70-105); Osmolality,Calculated 281 (280-300); Potassium 3.5 mEq/L (3.5-5.1); Sodium 133 mEq/L (136-145); eGFR For African Americans > 60 (> 60); eGFR For Non-African Americans 55 (> 60)
[2018-11-13] MEDS ORDERED: *HR* LORazepam 2 MG/ML VIAL IVP ONE ×2 (18:32→21:00)
[2018-11-13 18:42] LABS: Troponin I 0.05 ng/mL (< 0.04)
--- NOTE | 2018-11-13 19:06 | Emergency Department Note ---
Disposition Clinical Impression: Acute exacerbation of CHF (congestive heart failure), COPD with acute exacerbation Disposition: Admitted As Inpatient Time of Disposition: 19:04 General Adult HPI - General Chief complaint: ED Shortness of Breath/Dyspnea Stated complaint: TONA Time Seen by Provider: 11/13/18 17:25 Source: patient, EMS Limitations: no limitations - History of Present Illness HPI Narrative: Patient 78-year-old female with prior history of COPD and CHF who presents to the emergency department with chief complaint of shortness of breath. Patient states that she was extremely short of breath called EMS and was found to be significantly hypoxic in the field. The patient was started on CPAP prior to arrival in the emergency department and was still having significant hypoxia upon arrival. Patient denies chest pain states that she feels as though she is full of fluid. The patient states that she typically builds up fluid in her abdominal area and states that her abdomen feels full this evening. Patient denies chest pain denies diaphoresis states she has also had a cough at home and reports having a low-grade temperature of 99. Pain Scale: 0 - Related Data Home Medications Medication Instructions Recorded Confirmed Alendronate Sodium [Fosamax] 70 mg PO MO 04/21/18 11/04/18 Aspirin [Lo-Dose Aspirin EC] 81 mg PO DAILY 04/21/18 11/04/18 B Complex with Vitamin C [Le-Bee 1 tab PO DAILY 04/21/18 11/04/18 with C] Biotin 10,000 mcg PO DAILY 04/21/18 11/04/18 Calcium Carb,Cit/D3/Phytostrol 1 tab PO DAILY 04/21/18 11/04/18 [Citracal D + Heart Health Tab] Cholecalciferol (D-3) [Vitamin D] 5,000 unit PO DAILY 04/21/18 11/04/18 Fluticasone Propionate Nasal 2 spr NS DAILY 04/21/18 11/04/18 [Flonase] Isosorbide MONOnitrate [Isosorbide 30 mg PO BID 04/21/18 11/04/18 Mononitrate ER] Lactobacillus Combination No.9 1 cap PO DAILY 04/21/18 11/04/18 [Adult 50 + Probiotic] Potassium Chloride [K-Tab ER] 20 meq PO BID 04/21/18 11/04/18 Rosuvastatin Calcium 20 mg PO DAILY 04/21/18 11/04/18 Sertraline [Zoloft] 75 mg PO DAILY 04/21/18 11/04/18 Tiotropium [place] [Spiriva 2 puff IH DAILY 06/26/18 11/04/18 Respimat] Albuterol Sulfate [Ventolin Hfa] 2 puff IH Q6H PRN 08/15/18 11/04/18 LORazepam [Ativan] 1 mg PO HS 08/15/18 11/04/18 Metoprolol XL (24 HR) Succ [Toprol 50 mg PO DAILY 08/15/18 11/04/18 Xl] Albuterol Neb [Proventil Neb] 2.5 mg IH QAM 11/04/18 11/04/18 Clopidogrel [Plavix] 75 mg PO DAILY 11/04/18 11/04/18 Furosemide [Lasix] 40 mg PO DAILY PRN 11/04/18 11/04/18 Levothyroxine Sodium 88 mcg PO QAM 11/04/18 11/04/18 Metoprolol XL (24 HR) Succ [Toprol 25 mg PO DAILY 11/04/18 11/04/18 Xl] Previous Rx's Medication Instructions Recorded Budesonide/Formoterol 160/4.5 2 puff IH BIDR #1 inh 04/25/18 [Symbicort 160/4.5] Ranolazine [Ranexa] 500 mg PO BID #60 tab.er.12h 06/28/18 Allergies Allergy/AdvReac Type Severity Reaction Status Date / Time lactose AdvReac Abdominal Verified 11/03/18 07:11 Pain All systems ED: reviewed and negative except as stated. Past Medical History - Past Medical History Attestation: Yes The following information was validated with the patient. Medical history: Reports: COPD, coronary artery disease, hyperlipidemia, hypertension, osteoporosis, thyroid disease, other Surgical history: Reports: carotid endarterectomy, coronary bypass (CABG) Psychiatric history: Reports: anxiety, depression HOME SERVICE CONSULTANT history: Reports: no HOME SERVICE CONSULTANT history - Social History Smoking Status: Former smoker Smokeless Tobacco Status: No Alcohol use: Reports: none Drug use: Reports: none Physical Exam General: Conversant and pleasant interactive and nontoxic. Patient is in mild respiratory distress Head: Normocephalic/atraumatic Eyes:PERRLA, EOMI, no conjunctivitis Nares: Without d/c. Ears: No erythema or d/c noted. 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 Cardovascular: Tachycardic rate and rhythm without murmur, brisk capillary refill, no peripheral edema. Lungs: Wheezes and rhonchi present bilaterally, non-labored Abd: Soft nontender, Non Distended, no guarding, no rebound. : Defered Extremities: moves all extremities equally Neuro: AOx3, no obvious gross neuro deficit Psych: Normal Affect Derm: No rash noted - General Limitations: no limitations General appearance: alert Course Course Narrative: Patient upon arrival was started on BiPAP. The patient received IV steroids and breathing treatments and also received IV Lasix in the emergency department. The patient's labs show that she has a moderately elevated BNP that is actually higher than whenever she was most recently admitted to the hospital. The patient's white blood cell count is elevated but her records it appears the patient has been on IV steroids recently. The chest x-ray shows no evidence of pneumonia the case will be discussed with the hospitalist and the patient will be admitted to the hospital Vital Signs Temperature 99.7 F H 11/13/18 17:32 Pulse Rate 136 11/13/18 17:32 Respiratory Rate 34 11/13/18 17:32 Blood Pressure 168/98 11/13/18 17:32 O2 Sat by Pulse Oximetry 94 11/13/18 17:32 Temperature 97.9 F 11/13/18 22:39 Pulse Rate 112 11/13/18 22:39 Respiratory Rate 27 11/13/18 23:52 Blood Pressure 120/66 11/13/18 22:39 O2 Sat by Pulse Oximetry 96 11/13/18 23:52 Oxygen Delivery Oxygen Delivery Bipap Medical Decision Making - Lab Data Result diagrams: 11/13/18 17:42 11/13/18 17:42 Lab Results 11/13/18 11/13/18 11/13/18 Range/Units 17:42 17:42 17:42 WBC 20.4 H (4.3-11.1) K/mcL RBC 3.54 L (3.82-4.97) M/mcL Hgb 10.6 L (11.5-15.4) g/dL Hct 33.9 L (35.3-44.9) % MCV 95.8 (83.0-100.0) fL MCH 29.9 (28.0-33.3) pg MCHC 31.3 L (31.6-35.5) g/dL RDW 15.8 H (11.5-14.5) % Plt Count 281 (140-400) K/mcL MPV 11.1 (9.4-12.4) fL Immature Gran % 0.6 (0-4) % Seg Neutrophils % 85.0 % Lymphocytes % 9.5 % Monocytes % 4.7 % Eosinophils % 0.0 % Basophils % 0.2 % Neutrophils # 17.4 H (1.6-8.9) K/mcL Lymphocytes # 1.9 (0.6-4.6) K/mcL Monocytes # 1.0 (0.0-1.3) K/mcL Eosinophils # 0.0 (0.0-0.6) K/mcL Basophils # 0.0 (0.0-0.2) K/mcL PT 11.6 (9.4-12.1) Seconds INR 1.0 APTT 31.0 (26.0-36.0) Seconds ABG pH (7.32-7.45) pH Units ABG pCO2 (35-45) mmHg ABG pO2 (85-104) mmHg ABG HCO3 (21-27) mEq/L ABG Total CO2 (20-26) mEq/L ABG O2 Saturation (95-98) % ABG Base Excess (-2 to 3) mEq/L O2 Delivery Device Inspired O2 (1-15=lpm [id number]=%) Sodium 133 L (136-145) mEq/L Potassium 3.5 (3.5-5.1) mEq/L Chloride 95 L (98-107) mEq/L Carbon Dioxide 27 (23-29) mEq/L BUN 16 (8-23) mg/dL Creatinine 0.97 (0.60-1.20) mg/dL Est GFR ( Amer) > 60 (> 60) Est GFR (Non-Af Amer) 55 L (> 60) BUN/Creatinine Ratio 16 (6-26) Glucose 164 H (70-105) mg/dL Calculated Osmolality 281 (280-300) Lactic Acid (0.5-2.2) mmol/L Calcium 9.5 (8.6-10.3) mg/dL Troponin I 0.05 H* (< 0.04) ng/mL B-Natriuretic Peptide (Less than 100) pg/mL 11/13/18 11/13/18 11/13/18 Range/Units 17:42 17:42 18:17 WBC (4.3-11.1) K/mcL RBC (3.82-4.97) M/mcL Hgb (11.5-15.4) g/dL Hct (35.3-44.9) % MCV (83.0-100.0) fL MCH (28.0-33.3) pg MCHC (31.6-35.5) g/dL RDW (11.5-14.5) % Plt Count (140-400) K/mcL MPV (9.4-12.4) fL Immature Gran % (0-4) % Seg Neutrophils % % Lymphocytes % % Monocytes % % Eosinophils % % Basophils % % Neutrophils # (1.6-8.9) K/mcL Lymphocytes # (0.6-4.6) K/mcL Monocytes # (0.0-1.3) K/mcL Eosinophils # (0.0-0.6) K/mcL Basophils # (0.0-0.2) K/mcL PT (9.4-12.1) Seconds INR APTT (26.0-36.0) Seconds ABG pH 7.37 (7.32-7.45) pH Units ABG pCO2 46 H (35-45) mmHg ABG pO2 73 L (85-104) mmHg ABG HCO3 27 (21-27) mEq/L ABG Total CO2 28 H (20-26) mEq/L ABG O2 Saturation 94 L (95-98) % ABG Base Excess 1 (-2 to 3) mEq/L O2 Delivery Device BiPAP Inspired O2 60.0 (1-15=lpm [id number]=%) Sodium (136-145) mEq/L Potassium (3.5-5.1) mEq/L Chloride (98-107) mEq/L Carbon Dioxide (23-29) mEq/L BUN (8-23) mg/dL Creatinine (0.60-1.20) mg/dL Est GFR ( Amer) (> 60) Est GFR (Non-Af Amer) (> 60) BUN/Creatinine Ratio (6-26) Glucose (70-105) mg/dL Calculated Osmolality (280-300) Lactic Acid 2.2 (0.5-2.2) mmol/L Calcium (8.6-10.3) mg/dL Troponin I (< 0.04) ng/mL B-Natriuretic Peptide 1969 H (Less than 100) pg/mL 11/13/18 Range/Units 19:58 WBC (4.3-11.1) K/mcL RBC (3.82-4.97) M/mcL Hgb (11.5-15.4) g/dL Hct (35.3-44.9) % MCV (83.0-100.0) fL MCH (28.0-33.3) pg MCHC (31.6-35.5) g/dL RDW (11.5-14.5) % Plt Count (140-400) K/mcL MPV (9.4-12.4) fL Immature Gran % (0-4) % Seg Neutrophils % % Lymphocytes % % Monocytes % % Eosinophils % % Basophils % % Neutrophils # (1.6-8.9) K/mcL Lymphocytes # (0.6-4.6) K/mcL Monocytes # (0.0-1.3) K/mcL Eosinophils # (0.0-0.6) K/mcL Basophils # (0.0-0.2) K/mcL PT (9.4-12.1) Seconds INR APTT (26.0-36.0) Seconds ABG pH (7.32-7.45) pH Units ABG pCO2 (35-45) mmHg ABG pO2 (85-104) mmHg ABG HCO3 (21-27) mEq/L ABG Total CO2 (20-26) mEq/L ABG O2 Saturation (95-98) % ABG Base Excess (-2 to 3) mEq/L O2 Delivery Device Inspired O2 (1-15=lpm [id number]=%) Sodium (136-145) mEq/L Potassium (3.5-5.1) mEq/L Chloride (98-107) mEq/L Carbon Dioxide (23-29) mEq/L BUN (8-23) mg/dL Creatinine (0.60-1.20) mg/dL Est GFR ( Amer) (> 60) Est GFR (Non-Af Amer) (> 60) BUN/Creatinine Ratio (6-26) Glucose (70-105) mg/dL Calculated Osmolality (280-300) Lactic Acid 2.3 H (0.5-2.2) mmol/L Calcium (8.6-10.3) mg/dL Troponin I (< 0.04) ng/mL B-Natriuretic Peptide (Less than 100) pg/mL
[2018-11-13] MEDS ORDERED: Acetaminophen 325 MG TABLET PO PRN (20:10)
[2018-11-13] MEDS ORDERED: Ondansetron 4 MG/2 ML VIAL IVP PRN (20:10)
[2018-11-13] MEDS: Aspirin 81 MG TAB.CHEW PO SCH (21:29)
--- NOTE | 2018-11-13 22:28 | Internal Med History&Physical ---
Date of Encounter: 11/13/18 Time of Encounter: 22:26 Internal Medicine - H&P: HPI Chief complaint: SOB Admitted From: Home Plans for Post Hospital Care: Home History of present illness: Blessing Liang is an 78 year old woman with HTN, HLD, CAD s/p CABG, PAD, HFrEF (15-20%) and COPD with chronic hypoxic respiratory failure on home oxygen. She was discharged from here 1 week ago for CHF exacerbation. She presents now with acute onset shortness of breath that started this afternoon after a trip back from [place]. Family members state that she was sitting outside and suddenly became more short of breath. As per EMS she was significantly hypoxic. She denied associated chest pain but does report feeling as though her abdomen is more distended and full of fluid. She denies fever, chills and productive cough. She was placed on Bipap due her to distress. While her chest x-ray revealed an improvement in the degree of pulmonary edema and bilateral effusions since her prior study, BNP was noted elevated at 1969. She was given nebulizer treatment, high-dose steroids, furosemide, lorazepam for anxiolysis and loading dose of aspirin. She is admitted for further care. Note, while the patient has previously been DNR-CCA per documentation, tonight she wishes to be full code. Vitals: Reviewed General: Emaciated elderly woman lying sitting up in bed with mild respit Skin: Thin with decreased turgor. HEENT: Moist mucous membranes. No conjunctivae pallor. Neck: No lymphadenopathy. No JVD. No carotid bruits. No palpable thyroid. Chest: Diminished thoracic expansion. Isolated wheezes and coarse rales. Heart: Normal S1 & S2; tachycardic. No rubs or murmurs. Abdomen: Non-distended, soft and non-tender to palpation. No peritoneal reaction. Extremities: No clubbing, cyanosis or edema. No calf tenderness. Normal distal pulses. Neurological: Awake, alert and oriented to person, place and time. No focal deficits. Psych: Affect appropriate. Assessment/Plan 1. Acute on chronic hypoxic respiratory failure: Likely multifactorial in origin from CHF and COPD. She has a significant BNP elevation concerning for myocardial strain and pulmonary edema although on peripheral exam she appears somewhat dry. She also has ongoing wheezing and dyspnea that could be attributed to her COPD. Will give her furosemide IV 40mg daily and monitor her output in conjunction with standing nebulizer therapy and systemic steroids. Continue Bipap for tonight and downgrade to nasal cannula as tolerated. If she is able to lay supine, will get a CT angio of her chest to ensure pulmonary embolic disease is not at play. It was done 1 week ago on her prior admission and negative however. 2. Leukocytosis: It seems she has been taking steroids of recent which could be the culprit. She has no radiographic signs of pneumonia present, no productive cough or pleuritic chest pain. Blood cultures drawn. Will check a procalcitonin level as well. If elevated will provide some antibiotics in conjunction with her COPD treatment. 3. Elevated troponin: Chronic. No indication for continued trending. No electrocrdiographic signs of ACS. 4. CAD: Continue dual antiplatelet therapy, nitrates and statin. Monitor on telemetry. 5. HFrEF: Diuretics ordered. Continue metoprolol succinate. May need low dose ACEI/ARB as well. Past Med Surg Social Fam HX - Past Medical History Medical history: COPD, coronary artery disease, hyperlipidemia, hypertension, osteoporosis, thyroid disease, other Additional medical history: stomach aneurysm Psychiatric history: anxiety, depression - Past Surgical History Surgical History: carotid endarterectomy, coronary bypass (CABG) Additional surgical history: Aortic Aneurism Repair, Stents in kidneys, 9 vascular surgeries to legs, [facility] 02/10/14 - Social History Smoking Status: Former smoker Smokeless Tobacco Status: No Alcohol use: none Drug use: none - Family History Sister Living Status: Hx Family Cardiac Disorders: Yes Son Hx Family Cardiac Disorders: Yes (SD) Father Living Status: Hx Family Cardiac Disorders: Yes (CAD) Mother Living Status: Hx Family Cardiac Disorders: Yes (CAD) Internal Medicine - H&P: Meds Alendronate Sodium [Fosamax] 70 mg PO MO 04/21/18 [History] Aspirin [Lo-Dose Aspirin EC] 81 mg PO DAILY 04/21/18 [History] B Complex with Vitamin C [[place] with C] 1 tab PO DAILY 04/21/18 [History] Biotin 10,000 mcg PO DAILY 04/21/18 [History] Calcium Carb,Cit/D3/Phytostrol [Citracal D + Heart Health Tab] 1 tab PO DAILY 04/21/18 [History] Cholecalciferol (D-3) [Vitamin D] 5,000 unit PO DAILY 04/21/18 [History] Fluticasone Propionate Nasal [Flonase] 2 spr NS DAILY 04/21/18 [History] Isosorbide MONOnitrate [Isosorbide Mononitrate ER] 30 mg PO BID 04/21/18 [His tory] Lactobacillus Combination No.9 [Adult 50 + Probiotic] 1 cap PO DAILY 04/21/18 [History] Potassium Chloride [K-Tab ER] 20 meq PO BID 04/21/18 [History] Rosuvastatin Calcium 20 mg PO DAILY 04/21/18 [History] Sertraline [Zoloft] 75 mg PO DAILY 04/21/18 [History] Budesonide/Formoterol 160/4.5 [Symbicort 160/4.5] 2 puff IH BIDR #1 inh 04/25/18 [Rx] Tiotropium [place] [Spiriva Respimat] 2 puff IH DAILY 06/26/18 [History] Ranolazine [Ranexa] 500 mg PO BID #60 tab.er.12h 06/28/18 [Rx] Albuterol Sulfate [Ventolin Hfa] 2 puff IH Q6H PRN 08/15/18 [History] LORazepam [Ativan] 1 mg PO HS 08/15/18 [History] Metoprolol XL (24 HR) Succ [Toprol Xl] 50 mg PO DAILY 08/15/18 [History] Albuterol Neb [Proventil Neb] 2.5 mg IH QAM 11/04/18 [History] Clopidogrel [Plavix] 75 mg PO DAILY 11/04/18 [History] Furosemide [Lasix] 40 mg PO DAILY PRN 11/04/18 [History] Levothyroxine Sodium 88 mcg PO QAM 11/04/18 [History] Metoprolol XL (24 HR) Succ [Toprol Xl] 25 mg PO DAILY 11/04/18 [History] Allergy/AdvReac Type Severity Reaction Status Date / Time lactose AdvReac Abdominal Verified 11/03/18 07:11 Pain All Systems PM: A 10-system review of systems was performed and is negative for pertinent findings except as documented above in the HPI. - Constitutional Vitals: Temp Pulse Resp BP Pulse Ox 99.7 F H 136 22 132/98 98 11/13/18 17:32 11/13/18 17:32 11/13/18 21:33 11/13/18 21:33 11/13/18 21:16 General appearance: Present: A&O X 3 Exam: . Internal Med - H&P Results - Labs CBC & Chem 7: 11/13/18 17:42 11/13/18 17:42 Labs: Short CBC 11/13/18 Range/Units 17:42 WBC 20.4 H (4.3-11.1) K/mcL Hgb 10.6 L (11.5-15.4) g/dL Hct 33.9 L (35.3-44.9) % Plt Count 281 (140-400) K/mcL Neutrophils # 17.4 H (1.6-8.9) K/mcL BMP 11/13/18 17:42 Sodium 133 L Potassium 3.5 Chloride 95 L Carbon Dioxide 27 BUN 16 Creatinine 0.97 Glucose 164 H Calcium 9.5 Cardiac Enzymes 11/13/18 Range/Units 17:42 Troponin I 0.05 H* (< 0.04) ng/mL - ABG Interpretation ABG results: 11/13/18 18:17 ABG pH 7.37 ABG pCO2 46 H ABG pO2 73 L ABG HCO3 27 ABG Total CO2 28 H ABG O2 Saturation 94 L ABG Base Excess 1 - Impressions ITS Impressions Chest X-Ray 11/13/18 17:34 IMPRESSION: Interval improvement in pulmonary edema and bilateral pleural effusions since 11/03/2018. Improved bibasilar pulmonary opacities. No evidence of new pulmonary opacity. No evidence of pneumothorax. Mild residual pulmonary edema. Correlate with volume status. Findings suggestive of underlying COPD. D/ / 11/13/2018 18:24:07 Josef Carl MD / [facility] Interpreting Provider: Josef Carl MD - Time Spent With Patient Total time spent is greater than 50% in coordination of care (as documented) at patient's floor/unit and/or counseling patient:
[2018-11-13] MEDS: Ipratropium/Albuterol Neb 3 ML IH SCH (23:50)
[2018-11-14] MEDS: Ipratropium/Albuterol Neb 3 ML IH SCH ×2 (04:18→07:32)
[2018-11-14] MEDS: *HR* Heparin 5,000 UNIT/ML VIAL SQ SCH ×2 (05:49→17:11)
[2018-11-14 06:23] LABS: Hematocrit 29.5 % (35.3-44.9); Hemoglobin 9.4 g/dL (11.5-15.4); Mean Corpuscular HGB Conc 31.9 g/dL (31.6-35.5); Mean Corpuscular Hemoglobin 30.5 pg (28.0-33.3); Mean Corpuscular Volume 95.8 fL (83.0-100.0); Platelet Count 181 K/mcL (140-400); Red Blood Count 3.08 M/mcL (3.82-4.97); Red Cell Distribution Width 15.9 % (11.5-14.5); White Blood Count 12.7 K/mcL (4.3-11.1)
[2018-11-14 06:44] LABS: Calcium 8.9 mg/dL (8.6-10.3); Potassium 3.6 mEq/L (3.5-5.1)
[2018-11-14 07:19] LABS: Platelet Estimate Normal (Normal)
[2018-11-14 07:22] LABS: Lymphocytes # 0.8 K/mcL (0.6-4.6); Neutrophils # 10.9 K/mcL (1.6-8.9); Reactive Lymphocytes Present (Not Present)
[2018-11-14] MEDS: Furosemide 40 MG/4 ML VIAL IVP SCH (07:55)
[2018-11-14] MEDS: predniSONE 20 MG TABLET PO SCH (07:55)
[2018-11-14] MEDS: Aspirin 81 MG TAB.CHEW PO SCH (07:56)
--- NOTE | 2018-11-14 08:46 | Internal Med Progress Note ---
Hospitalist Progress Note - Encounter Date of Encounter: 11/14/18 Time of Encounter: 08:50 - Subjective Interval History: At bedside today, pt was resting comfortably and reported feeling significantly better than yesterday although she states still having some shortness of breath. Denied acute events overnight. Pt reports full bladder and difficulty voiding. Denied fever, chills, fatigue, night sweats, [place], chest pain, palpitations, wheezing or N/V/D. - Exam Vitals: Temp Pulse Resp BP Pulse Ox 98.2 F 96 16 104/65 94 11/14/18 06:58 11/14/18 06:58 11/14/18 07:33 11/14/18 06:58 11/14/18 07:33 Exam: General: conversant, cachectic appearing, in no acute distress Heart: RRR, +2 murmur heard in L sternal border without radiation to the carotids. no thrill or heaves. Faint peripheral pulses Resp: diffuse decreased breath sounds, bibasilar crackles in b/l Lower lobes posteriorly, no rhonci, or wheezing. No accessory muscle use. No cyanosis. HENT: PERRLA, neck supple, no lymphadenopathy, no thyromegaly Abdomen: soft, non-distended, round abdomen, normoactive bowel sounds x4 Skin: scar located mid chest s/p CABG, no rashes, dry : no bladder tenderness MSK: mild nail clubbing noted Neuro: alert and oriented, comprehends and answers questions appropriately; - Assessment and Plan (1) Acute exacerbation of CHF (congestive heart failure) Current Visit: Yes Status: Acute (2) COPD with acute exacerbation Current Visit: Yes Status: Acute Assessment and Plan: - Prednisone 40mg po and plan to taper pre-discharge - Continue ipratropium/albuterol nebulizer 3mL IH once - Supplemental O2 in event of increased CO2 retention, PaO2<55%, and/or SaO2 <89% (3) MRSA (methicillin resistant staphylococcus aureus) pneumonia Current Visit: Yes Status: Acute Assessment and Plan: Patient has a hx of MRSA pneumonia. CXR, and chest CT indicative of RLL consolidation and B/L interstitial infiltrates: - Sputum cx - Vanc 20mg/kg Q12H pharm to dose - Zosyn 4.5 g IV Q6H - Continue to monitor CBC with AM labs DVT Prophylaxis: Heparin SQ - Time Spent with Patient Total time spent is greater than 50% in coordination of care (as documented) at patient's floor/unit and/or counseling patient: Internal Medicine: Result - Labs CBC & Chem 7: 11/14/18 06:10 11/14/18 06:10 Labs: Short CBC 11/13/18 11/14/18 Range/Units 17:42 06:10 WBC 20.4 H 12.7 H (4.3-11.1) K/mcL Hgb 10.6 L 9.4 L (11.5-15.4) g/dL Hct 33.9 L 29.5 L (35.3-44.9) % Plt Count 281 181 (140-400) K/mcL Neutrophils # 17.4 H 10.9 H (1.6-8.9) K/mcL BMP 11/13/18 11/14/18 17:42 06:10 Sodium 133 L 137 Potassium 3.5 3.6 Chloride 95 L 95 L Carbon Dioxide 27 29 BUN 16 20 Creatinine 0.97 1.13 Glucose 164 H 175 H Calcium 9.5 8.9 Cardiac Enzymes 11/13/18 Range/Units 17:42 Troponin I 0.05 H* (< 0.04) ng/mL - ABG Interpretation ABG results: ABG ABG pH 7.37 pH Units (7.32-7.45) 11/13/18 18:17 ABG pCO2 46 mmHg (35-45) H 11/13/18 18:17 ABG pO2 73 mmHg (85-104) L 11/13/18 18:17 ABG O2 Saturation 94 % (95-98) L 11/13/18 18:17 PT/INR, D-dimer PT 11.6 Seconds (9.4-12.1) 11/13/18 17:42 - Impressions Impressions Chest X-Ray 11/13/18 17:34 IMPRESSION: Interval improvement in pulmonary edema and bilateral pleural effusions since 11/03/2018. Improved bibasilar pulmonary opacities. No evidence of new pulmonary opacity. No evidence of pneumothorax. Mild residual pulmonary edema. Correlate with volume status. Findings suggestive of underlying COPD. D/ / 11/13/2018 18:24:07 Josef Carl MD / michelle Interpreting Provider: Josef Carl MD Consult Discharge Plan - Plan Referrals: Trupti Oejda MD [Primary Care Provider] - 11/19/18 11:15 am () (1) Acute exacerbation of CHF (congestive heart failure) Qualifiers: (3) MRSA (methicillin resistant staphylococcus aureus) pneumonia Qualifiers: Laterality: bilateral Lung location: unspecified part of lung Qualified Code(s): J15.212 - Pneumonia due to Methicillin resistant Staphylococcus aureus
[2018-11-14] MEDS: Piperacillin/Tazobactam 3.375 GM in 0.9 % Sodium Chloride Mini Bag 100 ML IVPB SCH ×2 (17:23→23:41)
[2018-11-14] MEDS: *HR* LORazepam 1 MG TABLET PO PRN (22:25)
[2018-11-14] MEDS: Budesonide/Formoterol 160/4.5 1 PUFF INH IH SCH (23:23)
[2018-11-14] MEDS: Ipratropium/Albuterol Neb 3 ML IH PRN (23:27)
[2018-11-15 04:15] LABS: Hematocrit 25.8 % (35.3-44.9); Hemoglobin 8.1 g/dL (11.5-15.4); Immature Granulocytes % 0.9 % (0-4); Lymphocytes % 11.1 %; Mean Corpuscular HGB Conc 31.4 g/dL (31.6-35.5); Mean Corpuscular Hemoglobin 29.7 pg (28.0-33.3); Mean Corpuscular Volume 94.5 fL (83.0-100.0); Mean Platelet Volume 10.7 fL (9.4-12.4); Monocytes # 0.4 K/mcL (0.0-1.3); Monocytes % 4.2 %; Neutrophils # 7.8 K/mcL (1.6-8.9); Platelet Count 165 K/mcL (140-400); Red Blood Count 2.73 M/mcL (3.82-4.97); Red Cell Distribution Width 16.1 % (11.5-14.5); Segmented Neutrophils % 83.8 %; White Blood Count 9.3 K/mcL (4.3-11.1)
[2018-11-15 04:37] LABS: BUN/Creatinine Ratio 30 (6-26); Blood Urea Nitrogen 28 mg/dL (8-23); Calcium 8.8 mg/dL (8.6-10.3); Carbon Dioxide 31 mEq/L (23-29); Chloride 99 mEq/L (98-107); Glucose 116 mg/dL (70-105); Osmolality,Calculated 288 (280-300); Potassium 3.3 mEq/L (3.5-5.1); Sodium 136 mEq/L (136-145); eGFR For African Americans > 60 (> 60); eGFR For Non-African Americans 57 (> 60)
[2018-11-15] MEDS: *HR* Heparin 5,000 UNIT/ML VIAL SQ SCH ×2 (05:27→18:23)
[2018-11-15] MEDS: Ipratropium/Albuterol Neb 3 ML IH PRN (05:58)
[2018-11-15 06:43] LABS: Bilirubin,Urine Negative (Negative); Blood,Urine Negative (Negative); Clarity,Urine Turbid (Clear); Color,Urine Yellow (Yellow); Glucose,Urine (UA) Normal (Normal); Ketones,Urine Negative (Negative); Leukocyte Esterase,Urine Large (Negative); Nitrite,Urine Positive (Negative); PH,Urine 7.5 pH Units (5.0-8.0); Protein,Urine Trace mg/dL (Neg-Trace); Specific Gravity,Urine 1.016 (1.010-1.025); Urobilinogen,Urine Normal (Normal)
[2018-11-15 06:44] LABS: Bacteria,Urine Moderate per hpf (None-Few); Hyaline Casts,Urine None Seen per lpf (None-Few); RBC,Urine 0-3 per hpf (0-3); Squamous Epithelial Cell,Urine Many per lpf (None-Few); WBC,Urine TNTC per hpf (0-3)
--- NOTE | 2018-11-15 07:43 | Electrocardiograph Report ---
[place] [facility] Test Date: 2018-11-13 Pat Name: Blessing Liang Department: EXAM12 Room: 3B Gender: F Power [employer]pper: : 1940 Requested By: Stewart Baer Order Number: [id number] Reading MD: Manuel Nettles Measurements Intervals Sellers Rate: 135 P: 75 [place]: 87 QRS: -81 QRSD: 137 T: 86 QT: 354 QTc: 531 Interpretive Statements Sinus tachycardia Multiple ventricular premature complexes Left bundle branch block Electronically Signed On 11-15-2018 7:41:41 EDT by Manuel Nettles
[2018-11-15] MEDS: Budesonide/Formoterol 160/4.5 1 PUFF INH IH SCH ×2 (07:50→20:32)
[2018-11-15] MEDS: Furosemide 40 MG/4 ML VIAL IVP SCH (09:12)
[2018-11-15] MEDS: Aspirin 81 MG TAB.CHEW PO SCH (09:12)
[2018-11-15] MEDS: Piperacillin/Tazobactam 3.375 GM in 0.9 % Sodium Chloride Mini Bag 100 ML IVPB SCH ×3 (09:13→23:28)
[2018-11-15] MEDS: predniSONE 20 MG TABLET PO SCH (09:13)
--- NOTE | 2018-11-15 11:06 | Internal Med Progress Note ---
Hospitalist Progress Note - Encounter Date of Encounter: 11/15/18 Time of Encounter: 11:03 - Subjective Interval History: Ms. Liang is an 78yo woman who was brought by EMS to [facility] ED due to severe hypoxia and SOB. Pt has relevant PMH of COPD on 4L O2, MRSA pneumonia, CAD, and HFrEF 35-40%. At bedside today, pt was sitting comfortably on a chair and reported feeling better than when admitted. Denied acute events overnight. Pt reports full bladder and difficulty voiding. Denied fever, chills, fatigue, night sweats, dysuria, chest pain, cough, wheezing or N/V/D. - Exam Vitals: Temp Pulse Resp BP Pulse Ox 98.1 F 101 17 120/69 95 11/15/18 07:04 11/15/18 07:04 11/15/18 07:54 11/15/18 07:04 11/15/18 07:54 Exam: General: conversant, pleasant, cachectic appearing, in no acute distress Heart: RRR, no thrill or heaves. Resp: increased breath sounds L lower lobe, bibasilar crackles, and diffuse decreased breath sounds elsewhere. no rhonci, or wheezing. No accessory muscle use. No cyanosis. HENT: neck supple, no thyromegaly Skin: scar located mid chest s/p CABG, no rashes, dry MSK: mild nail clubbing noted Neuro: alert and oriented, comprehends and answers questions appropriately - Summary of Assessment and Plan Summary of Assessment and Plan: 78yo F w/ hx of COPD on 4L O2, COPD hospitalization 05/2018, MRSA PNA 07/2018, HFrEF 35% 10/24, and hypoxia p/w increased dyspnea, cough, sputum production, procalcitonin 2.41, CXR findings of bibasilar interstitial infiltrates, and chest CT that demonstrates bibasilar consolidation, concerning for PNA causing COPD exacerbation. Dysuria, +pyuria, +LE, and +nitrite c/w UTI. 1- COPD exacerbation: 2/2 PNA - Day 2 of prednisone 40mg po qd, expect to finish course on 11/20/18 - Continue ipratropium/albuterol nebulizer 3mL ih prn - Manage causes as below such as diuresis and abx 2- PNA: hx of MRSA pneumonia 07/2018, viral antigens negative - SpCx and BCx pending - Day 2 of empiric tx with Vanc/Zosyn, expect to finish course on 11/20/18 3- Severe sepsis: 3/4 SIRS (afebrile) w/ PNA and/or UTI below; lactate 2.2. - BCx x2 pending - Fluid bolus prn for hypotension 4- Acute on chronic HFrEF 35% (last KEVIN 11/04/18): stable Cr, UOP good, SBP tolerating; no edema; bibasilar crackles improving - Continue Lasix 40mg IV qd 5- Acute on chronic hypoxic respiratory failure: currently on home 4L O2 - Acute comp resolved 6- UTI - Abx as above - F/u UCx 7- Hypokalemia - Replete with 40mEq po bid; recheck w AM labs 8- Chronic normocytic anemia: 2/2 chronic disease - Transfuse for hgb <8 9- PAD/CAD/HLD - Continue antiplatelets, statin, and imdur 10- HTN - Continue home meds as above 11- Hypothyroidism - Continue home synthroid 12- DVT prophylaxis - Heparin SQ - Time Spent with Patient Total time spent is greater than 50% in coordination of care (as documented) at patient's floor/unit and/or counseling patient: Internal Medicine: Result - Labs CBC & Chem 7: 11/15/18 04:05 11/15/18 04:05 Labs: Short CBC 11/15/18 Range/Units 04:05 WBC 9.3 (4.3-11.1) K/mcL Hgb 8.1 L (11.5-15.4) g/dL Hct 25.8 L (35.3-44.9) % Plt Count 165 (140-400) K/mcL Neutrophils # 7.8 (1.6-8.9) K/mcL BMP 11/15/18 04:05 Sodium 136 Potassium 3.3 L Chloride 99 Carbon Dioxide 31 H BUN 28 H Creatinine 0.94 Glucose 116 H Calcium 8.8 Urine 11/15/18 Range/Units 05:50 Urine Color Yellow (Yellow) Urine Clarity Turbid A (Clear) Urine pH 7.5 (5.0-8.0) pH Units Ur Specific [place] 1.016 (1.010-1.025) Urine Protein Trace (Neg-Trace) mg/dL Urine Glucose (UA) Normal (Normal) mg/dL - ABG Interpretation ABG results: ABG ABG pH 7.37 pH Units (7.32-7.45) 11/13/18 18:17 ABG pCO2 46 mmHg (35-45) H 11/13/18 18:17 ABG pO2 73 mmHg (85-104) L 11/13/18 18:17 ABG O2 Saturation 94 % (95-98) L 11/13/18 18:17 PT/INR, D-dimer PT 11.6 Seconds (9.4-12.1) 11/13/18 17:42 - Impressions Impressions Chest X-Ray 11/13/18 17:34 IMPRESSION: 1. Interval improvement in pulmonary edema and bilateral pleural effusions since 11/03/2018. 2. Improved bibasilar pulmonary opacities. No evidence of new pulmonary opacity. No evidence of pneumothorax. 3. Mild residual pulmonary edema. Correlate with volume status. 4. Findings suggestive of underlying COPD. D/ / 11/13/2018 18:24:07 Josef Carl MD / [email or web address] Interpreting Provider: Josef Carl MD Chest CT 11/14/18 13:36 IMPRESSION: 1. Interval decrease in size of small bilateral pleural effusions since prior examination. 2. Interval increase in bilateral lower lobe airspace consolidation concerning for worsening pneumonia. Follow-up to resolution is recommended to exclude underlying mass. 3. Severe emphysema. The findings were sent to the Radiology Results Communication [facility] at 2:53 pm on 11/14/2018to be communicated to a licensed caregiver. D/ / 11/14/2018 14:55:35 Kirsten Bates MD / [facility] Interpreting Provider: Kirsten Bates MD Consult Discharge Plan - Plan Referrals: Trupti Ojeda MD [Primary Care Provider] - 11/19/18 11:15 am ()
[2018-11-15] MEDS: Aspirin Enteric Coated 81 MG Tablet PO SCH (12:44)
[2018-11-15] MEDS: Fluticasone Propionate Nasal 50 MCG/SPRAY BOTTLE NS SCH (14:41)
[2018-11-15] MEDS: Metoprolol XL (24 HR) Succ 25 MG TAB.ER.24H PO SCH (14:42)
[2018-11-15] MEDS: Albuterol 2.5 MG/3 ML NEBULIZER IH SCH (14:54)
[2018-11-15] MEDS: Ranolazine 500 MG TAB.ER.12H PO SCH (20:32)
[2018-11-15] MEDS: *HR* LORazepam 1 MG TABLET PO PRN (20:32)
[2018-11-15] MEDS: Isosorbide MONOnitrate (24 HR) 30 MG TAB.ER.24H PO SCH (20:32)
[2018-11-15] MEDS ORDERED: *HR* Ticagrelor 90 MG TABLET PO SCH (21:00)
[2018-11-16] MEDS: Piperacillin/Tazobactam 3.375 GM in 0.9 % Sodium Chloride Mini Bag 100 ML IVPB SCH ×4 (00:39→23:54)
[2018-11-16] MEDS: Ipratropium/Albuterol Neb 3 ML IH PRN ×2 (01:30→22:03)
[2018-11-16] MEDS: *HR* Heparin 5,000 UNIT/ML VIAL SQ SCH (06:04)
[2018-11-16] MEDS: Budesonide/Formoterol 160/4.5 1 PUFF INH IH SCH ×2 (08:06→22:03)
[2018-11-16] MEDS: Tiotropium 18 MCG inhalation IH SCH (08:08)
[2018-11-16] MEDS: Albuterol 2.5 MG/3 ML NEBULIZER IH SCH (08:08)
[2018-11-16] MEDS: Aspirin 81 MG TAB.CHEW PO SCH (08:31)
[2018-11-16] MEDS: predniSONE 20 MG TABLET PO SCH (08:31)
[2018-11-16] MEDS: Ranolazine 500 MG TAB.ER.12H PO SCH ×2 (08:32→20:51)
[2018-11-16] MEDS: Isosorbide MONOnitrate (24 HR) 30 MG TAB.ER.24H PO SCH ×2 (08:32→20:51)
[2018-11-16] MEDS: Metoprolol XL (24 HR) Succ 25 MG TAB.ER.24H PO SCH (08:32)
[2018-11-16] MEDS: Furosemide 40 MG/4 ML VIAL IVP SCH (08:34)
[2018-11-16 08:37] LABS: Hemoglobin 7.9 g/dL (11.5-15.4); Mean Corpuscular HGB Conc 30.4 g/dL (31.6-35.5); Mean Corpuscular Hemoglobin 29.8 pg (28.0-33.3); Mean Corpuscular Volume 98.1 fL (83.0-100.0); Mean Platelet Volume 11.6 fL (9.4-12.4); Platelet Count 179 K/mcL (140-400); Red Blood Count 2.65 M/mcL (3.82-4.97); Red Cell Distribution Width 16.3 % (11.5-14.5); White Blood Count 8.8 K/mcL (4.3-11.1)
[2018-11-16] MEDS: Fluticasone Propionate Nasal 50 MCG/SPRAY BOTTLE NS SCH (08:46)
[2018-11-16] MEDS: Aspirin Enteric Coated 81 MG Tablet PO SCH (08:46)
--- NOTE | 2018-11-16 11:26 | Internal Med Progress Note ---
Hospitalist Progress Note - Encounter Date of Encounter: 11/16/18 Time of Encounter: 11:26 - Subjective Interval History: Patient states she is comfortable today but having SOB w exertion. Still coughing quite a bit, productive. Peeing a lot after lasix but still feels bloated. No N/V/D, no CP. - Exam Vitals: Temp Pulse Resp BP Pulse Ox 98.0 F 98 16 102/63 98 11/16/18 08:29 11/16/18 08:29 11/16/18 08:29 11/16/18 08:29 11/16/18 08:29 Exam: General: NAD, good eye contact, relatively well appearing, elderly Thoracic: Coarse breath sounds b/l, expiratory wheezing, bibasilar crackles Cardio: Normal S1 and S2, regular rate and rhythm Abdomen: Soft, nontender Extremities: Warm, well perfused. DP pulses 1+ b/l. No edema. Skin: Intact. No rashes, bruises, or ulcers Neuro: Awake, fully oriented. Speech fluent - Summary of Assessment and Plan Summary of Assessment and Plan: Blessing Liang is an 78 F w/ hx of COPD on 4L O2, MRSA PNA, HFrEF 35%, who p/w dyspnea and productive cough, found to have procalcitonin 2.[address] w bibasilar consolidation, concerning for PNA causing COPD exacerbation. Dysuria, +pyuria, +LE, and +nitrite, all c/w UTI. PNA: hx MRSA PNA 07/2018, and consolidations seen now on CT. UAg's negative and SpCx w typical resp tierra, but pt improving w abx therapy. - BCx ngtd - check MRSA nasal swab - continue empiric Vanc/Zosyn, expect to finish course on 11/21/18 COPD exacerbation: 2/2 PNA above - prednisone 40 daily, last dose 11/20/18 - continue nebs q4h prn Severe sepsis: resolved Acute on chronic HFrEF 35% (last TTE 11/04/18): stable Cr, UOP good, SBP tolerating; no edema; bibasilar crackles improving. Interval BNP is actually further elevated today. - Continue Lasix 40 iv daily, and this afternoon will add second dose Chronic hypoxic respiratory failure: home 4L O2, acute component resolved UTI: UCx pending, continue abx as above Deconditioning: PT/OT consults Chronic normocytic anemia: 2/2 chronic disease, transfuse for hgb <8 PAD/CAD/HLD: home antiplatelets, statin, and imdur HTN: home meds as above Hypothyroidism: home synthroid PPx: sqh Activity: ambulate FEN: cardiac, no MIVF Lines: PIV Consults: Code: Full Dispo: patient requires inpatient eval and management at this time. Anticipate 2-3 days. Will be homegoing Internal Medicine: Result - Labs CBC & Chem 7: 11/16/18 07:26 11/16/18 07:26 Labs: Short CBC 11/16/18 Range/Units 07:26 WBC 8.8 (4.3-11.1) K/mcL Hgb 7.9 L (11.5-15.4) g/dL Hct 26.0 L (35.3-44.9) % Plt Count 179 (140-400) K/mcL BMP 11/16/18 07:26 Sodium 142 Potassium 5.0 Chloride 104 Carbon Dioxide 28 BUN 34 H Creatinine 1.07 Glucose 131 H Calcium 9.0 - ABG Interpretation ABG results: ABG ABG pH 7.37 pH Units (7.32-7.45) 11/13/18 18:17 ABG pCO2 46 mmHg (35-45) H 11/13/18 18:17 ABG pO2 73 mmHg (85-104) L 11/13/18 18:17 ABG O2 Saturation 94 % (95-98) L 11/13/18 18:17 PT/INR, D-dimer PT 11.6 Seconds (9.4-12.1) 11/13/18 17:42 Consult Discharge Plan - Plan Referrals: Trupti Ojeda MD [Primary Care Provider] - 11/19/18 11:15 am ()
[2018-11-16] MEDS ORDERED: Furosemide 40 MG/4 ML VIAL IVP ONE (17:14)
[2018-11-16] MEDS: *HR* LORazepam 1 MG TABLET PO PRN (20:51)
[2018-11-17 05:34] LABS: Hematocrit 25.5 % (35.3-44.9); Hemoglobin 7.8 g/dL (11.5-15.4); Mean Corpuscular HGB Conc 30.6 g/dL (31.6-35.5); Mean Corpuscular Hemoglobin 29.8 pg (28.0-33.3); Mean Corpuscular Volume 97.3 fL (83.0-100.0); Mean Platelet Volume 10.7 fL (9.4-12.4); Platelet Count 159 K/mcL (140-400); Red Blood Count 2.62 M/mcL (3.82-4.97); Red Cell Distribution Width 15.8 % (11.5-14.5); White Blood Count 8.2 K/mcL (4.3-11.1)
[2018-11-17 05:52] LABS: BUN/Creatinine Ratio 33 (6-26); Blood Urea Nitrogen 32 mg/dL (8-23); Calcium 9.1 mg/dL (8.6-10.3); Carbon Dioxide 31 mEq/L (23-29); Chloride 104 mEq/L (98-107); Glucose 105 mg/dL (70-105); Osmolality,Calculated 299 (280-300); Potassium 4.9 mEq/L (3.5-5.1); Sodium 141 mEq/L (136-145); eGFR For African Americans > 60 (> 60); eGFR For Non-African Americans 56 (> 60)
[2018-11-17] MEDS: Budesonide/Formoterol 160/4.5 1 PUFF INH IH SCH ×2 (07:47→21:40)
[2018-11-17] MEDS: Albuterol 2.5 MG/3 ML NEBULIZER IH SCH (07:47)
[2018-11-17] MEDS: Tiotropium 18 MCG inhalation IH SCH (07:54)
[2018-11-17] MEDS: Furosemide 40 MG/4 ML VIAL IVP SCH (09:59)
[2018-11-17] MEDS: Metoprolol XL (24 HR) Succ 25 MG TAB.ER.24H PO SCH (09:59)
[2018-11-17] MEDS: Aspirin Enteric Coated 81 MG Tablet PO SCH (09:59)
[2018-11-17] MEDS: predniSONE 20 MG TABLET PO SCH (10:00)
[2018-11-17] MEDS: Ranolazine 500 MG TAB.ER.12H PO SCH ×2 (10:01→20:28)
[2018-11-17] MEDS: Isosorbide MONOnitrate (24 HR) 30 MG TAB.ER.24H PO SCH ×2 (10:01→20:27)
[2018-11-17] MEDS: Aspirin 81 MG TAB.CHEW PO SCH (10:02)
[2018-11-17] MEDS: Piperacillin/Tazobactam 3.375 GM in 0.9 % Sodium Chloride Mini Bag 100 ML IVPB SCH ×2 (10:03→16:57)
--- NOTE | 2018-11-17 10:12 | Internal Med Progress Note ---
Hospitalist Progress Note - Encounter Date of Encounter: 11/17/18 Time of Encounter: 09:20 - Subjective Interval History: Ms. Liang is an 78yo woman who's currently being managed for a/c COPDE 2/2 PNA c/b a/c HF. Pt has PMH of COPD on 4L O2, MRSA pneumonia, CAD, and HFrEF 35- 40%. At bedside today, pt reports feeling well with no acute events o/n or new complaints. Pt reports voiding this AM with less difficulty although reported some straining still present. Continues to report abdominal heaviness. Denied fever, chills, fatigue, night sweats, [place], chest pain, palpitations, cough, wheezing or N/V/D. - Exam Vitals: Temp Pulse Resp BP Pulse Ox 97.2 F L 98 18 105/63 100 11/17/18 07:56 11/17/18 07:56 11/17/18 07:56 11/17/18 07:56 11/17/18 07:56 Exam: General: NAD, good eye contact, pleasant, cachectic appearing Heart: RRR,+2 murmur heard in L sternal border without radiation to the carotids. no thrill or heaves. distant pulses Resp: increased breath sounds L lower lobe, bibasilar crackles, and diffuse lung sounds elsewhere. No rhonci, or wheezing. No accessory muscle use. HENT: Neck supple, no lymphadenopathy, no thyromegaly Abdomen: firm, non-distended, round abdomen, normoactive bowel sounds x4 Skin: scar located mid chest s/p CABG, warm and dry with good skin turgor MSK: mild nail clubbing noted, no swelling UE or LE b/l Neuro: alert and oriented, comprehends and answers questions appropriately - Assessment and Plan (1) Acute exacerbation of CHF (congestive heart failure) Current Visit: Yes Status: Acute Assessment and Plan: BNP 2817 11/17, up from 1969 on admission; stable electrolytes; SBP tolerating; UOP improving - consider Chest xray to monitor evolution/resolution of disease tomorrow - Closely monitor I/Os, monitor BPs, and trend electrolyte to assess response to diuresis - Escalate Lasix dose from 40mg IV qd to 40mg IV bid (2) MRSA (methicillin resistant staphylococcus aureus) pneumonia Current Visit: Yes Status: Acute Assessment and Plan: viral antigens negative - SpCx and BCx pending final report - Day 3 of empiric tx with Vanc/Zosyn, - continue regimen, expect to finish course on 11/20/18 (3) COPD with acute exacerbation Current Visit: Yes Status: Acute Assessment and Plan: - Continue ipratropium/albuterol nebulizer 3mL ih prn (4) Urinary tract infection Current Visit: Yes Status: Acute Assessment and Plan: Abx as above (5) Anemia Current Visit: Yes Status: Chronic Assessment and Plan: - Trend H/H and continue to monitor - Nutrition consult to address nutritional deficiencies (6) Hypothyroidism Current Visit: Yes Status: Chronic Assessment and Plan: Continue home Synthroid (7) Hypertension Current Visit: Yes Status: Chronic Assessment and Plan: Continue home medications as above (8) Sepsis Current Visit: Yes Status: Acute Assessment and Plan: Resolved on admission 3/4 SIRS ( afebrile) w/PNA and UTI above ; lactate 2.2 (9) DVT prophylaxis Current Visit: Yes Status: Acute Assessment and Plan: Heparin subcutaneous DVT Prophylaxis: Heparin SQ - Time Spent with Patient Total time spent is greater than 50% in coordination of care (as documented) at patient's floor/unit and/or counseling patient: Internal Medicine: Result - Labs CBC & Chem 7: 11/17/18 05:14 11/17/18 05:14 Labs: Short CBC 11/17/18 Range/Units 05:14 WBC 8.2 (4.3-11.1) K/mcL Hgb 7.8 L (11.5-15.4) g/dL Hct 25.5 L (35.3-44.9) % Plt Count 159 (140-400) K/mcL BMP 11/16/18 11/17/18 07:26 05:14 Sodium 142 141 Potassium 5.0 4.9 Chloride 104 104 Carbon Dioxide 28 31 H BUN 34 H 32 H Creatinine 1.07 0.96 Glucose 131 H 105 Calcium 9.0 9.1 - ABG Interpretation ABG results: ABG ABG pH 7.37 pH Units (7.32-7.45) 11/13/18 18:17 ABG pCO2 46 mmHg (35-45) H 11/13/18 18:17 ABG pO2 73 mmHg (85-104) L 11/13/18 18:17 ABG O2 Saturation 94 % (95-98) L 11/13/18 18:17 PT/INR, D-dimer PT 11.6 Seconds (9.4-12.1) 11/13/18 17:42 Consult Discharge Plan - Plan Referrals: Trupti Ojeda MD [Primary Care Provider] - 11/19/18 11:15 am () (1) Acute exacerbation of CHF (congestive heart failure) Qualifiers: (2) MRSA (methicillin resistant staphylococcus aureus) pneumonia Qualifiers: Laterality: bilateral Lung location: unspecified part of lung Qualified Code(s): J15.212 - Pneumonia due to Methicillin resistant Staphylococcus aureus (5) Anemia Qualifiers: Anemia type: unspecified type Qualified Code(s): D64.9 - Anemia, unspecified (6) Hypothyroidism Qualifiers: Hypothyroidism type: unspecified Qualified Code(s): E03.9 - Hypothyroidism, unspecified (7) Hypertension Qualifiers: Hypertension type: unspecified Qualified Code(s): I10 - Essential (primary) hypertension (8) Sepsis Qualifiers: Sepsis type: sepsis due to unspecified organism Qualified Code(s): A41.9 - Sepsis, unspecified organism
[2018-11-17] MEDS: Fluticasone Propionate Nasal 50 MCG/SPRAY BOTTLE NS SCH (11:19)
[2018-11-17] MEDS ORDERED: Furosemide 40 MG/4 ML VIAL IVP ONE (14:40)
[2018-11-17] MEDS: *HR* LORazepam 1 MG TABLET PO PRN (20:25)
[2018-11-18] MEDS: Piperacillin/Tazobactam 3.375 GM in 0.9 % Sodium Chloride Mini Bag 100 ML IVPB SCH ×3 (00:52→17:29)
[2018-11-18 02:45] LABS: BUN/Creatinine Ratio 34 (6-26); Blood Urea Nitrogen 33 mg/dL (8-23); Calcium 8.9 mg/dL (8.6-10.3); Carbon Dioxide 31 mEq/L (23-29); Chloride 100 mEq/L (98-107); Glucose 124 mg/dL (70-105); Osmolality,Calculated 297 (280-300); Potassium 4.5 mEq/L (3.5-5.1); Sodium 139 mEq/L (136-145); eGFR For African Americans > 60 (> 60); eGFR For Non-African Americans 55 (> 60)
[2018-11-18 02:52] LABS: Hematocrit 25.3 % (35.3-44.9); Hemoglobin 7.7 g/dL (11.5-15.4); Mean Corpuscular HGB Conc 30.4 g/dL (31.6-35.5); Mean Corpuscular Hemoglobin 29.4 pg (28.0-33.3); Mean Corpuscular Volume 96.6 fL (83.0-100.0); Mean Platelet Volume 11.3 fL (9.4-12.4); Platelet Count 179 K/mcL (140-400); Red Blood Count 2.62 M/mcL (3.82-4.97); Red Cell Distribution Width 15.7 % (11.5-14.5); White Blood Count 7.6 K/mcL (4.3-11.1)
[2018-11-18] MEDS: Budesonide/Formoterol 160/4.5 1 PUFF INH IH SCH ×2 (07:35→19:59)
[2018-11-18] MEDS: Tiotropium 18 MCG inhalation IH SCH (07:35)
[2018-11-18] MEDS: Albuterol 2.5 MG/3 ML NEBULIZER IH SCH (07:35)
[2018-11-18] MEDS: Furosemide 40 MG/4 ML VIAL IVP SCH (08:30)
[2018-11-18] MEDS: Metoprolol XL (24 HR) Succ 25 MG TAB.ER.24H PO SCH (08:31)
[2018-11-18] MEDS: Ranolazine 500 MG TAB.ER.12H PO SCH ×2 (08:31→21:45)
[2018-11-18] MEDS: predniSONE 20 MG TABLET PO SCH (08:31)
[2018-11-18] MEDS: Isosorbide MONOnitrate (24 HR) 30 MG TAB.ER.24H PO SCH ×2 (08:32→21:44)
[2018-11-18] MEDS: Aspirin Enteric Coated 81 MG Tablet PO SCH (08:32)
[2018-11-18] MEDS: Fluticasone Propionate Nasal 50 MCG/SPRAY BOTTLE NS SCH (09:28)
--- NOTE | 2018-11-18 10:22 | Infectious Disease Consult ---
Infectious Disease-Consult - Encounter Date/Time Date of Encounter: 11/18/18 - Data of Consult Patient: new to practice Reason for consult: "urine w VRE and resistant morganella, also pneumonia w hx MRSA, please assist with abx selection" Consult date: 11/18/18 Requesting Physician: Po Beltran Primary Care Provider: Trupti Ojeda - HPI HPI: Ms. Liang is an 78-year-old female with a past medical history of chronic r espiratory failure secondary to COPD on chronic O2 at 2 L/m, CHF with an EF of 35%, nonischemic cardiomyopathy, CAD status post CABG, hyperlipidemia, hypertension, hypothyroidism, and peripheral vascular disease status post multiple bilateral lower extremity vascular surgeries. The patient was admitted to the hospital 11/13/18 for acute exacerbation of CHF and acute exacerbation of COPD. We are consulted 11/18/18 for further workup and treatment recommendations for UTI. Briefly, the patient's 78-year-old female with past medical history as stated above. The patient was recently hospitalized 11/03 through 11/06 for acute exacerbation of CHF. At that time, she underwent a left heart catheter as well. She was not treated with any antibiotics and was discharged on Lasix. The patient presented to the emergency department on the day of admission with complaints of acute onset shortness of breath and hypoxia. She called the squad at home and she became acutely short of breath. She was noted to be hypoxic and was brought to the emergency department. Upon arrival, she will low-grade temp of 99.7. She was tachycardic, tachypneic, and had leukocytosis with neutrophilic predominance. Lactic acid was normal. Kidney function was normal. BNP was elevated at 1969. She had a mildly elevated troponin of 0.05. Chest x-ray showed improved pulmonary edema and bilateral pleural effusions with improved bibasilar pulmonary opacities and mild residual pulmonary edema as well as findings consistent with COPD. Blood cultures were obtained 2 sets. She was started. We on vancomycin and Zosyn and admitted to the hospital for further evaluation. After admission, the patient underwent a CT of the chest that showed decreased pleural effusions with increased bibasilar consolidations concerning for pneumonia and severe emphysema. Sputum culture was obtained and was interpreted as normal upper respiratory tract tierra. Recalcitrant was elevated at 2.41. Strep pneumococcal and legionella urinary antigens were negative. The patient developed some difficulty urinating and a urinalysis was positive, but also appeared contaminated. Urine cultures positive for Morganella Rodrick Anna and VRE. MRSA nasal screen was positive. Since admission, the patient has been afebrile and hemodynamically stable. Her tachycardia has resolved. White blood cell count is normal. Currently, she is on vancomycin and Zosyn. We have been asked to evaluate and make further recommendations. During my exam today, the patient endorses a history as stated above. She states she was on her way home from visiting her son in [place] when she became acutely short of breath. She denies any fevers, chills, or rigors. Denies any chest pain. Reports a chronic cough that has been at baseline. Denies any headache or neck pain. Denies any nausea, vomiting, or constipation. States she had a little bit of diarrhea when they gave her some dietary supplements here in the hospital. Reports she was having some trouble starting her urine stream, but this has resolved since having 2 large bowel movements yesterday. She reports urinary frequency, but denies any dysuria, abdominal pain, or flank pain. She denies skin rashes, but states that her tongue feels "bumpy." She states her appetite is overall pretty poor. The patient lives at home with her . She is retired and does not wear outside the home. She denies tobacco, alcohol, or illicit drug use. Denies any recent travel outside the [facility]. Denies any chronic infectious diseases. - ROS Review of Systems: All systems reviewed and no additional remarkable complaints except as stated. - Results CBC & Chem 7: 11/18/18 01:42 11/18/18 01:42 - Exam Vitals: Temp Pulse Resp BP Pulse Ox 98 F 95 22 99/60 96 11/18/18 06:52 11/18/18 06:52 11/18/18 07:36 11/18/18 06:52 11/18/18 07:36 Exam: Head: Atraumatic, normal inspection, normocephalic. Eye: EOMI, PERRLA, no scleral icterus noted. ENT: Mucous membranes moist. No odontogenic infection noted. Oral thrush noted. Neck: Normal inspection, no meningismus. Respiratory: Clear to auscultation. No rales, respiratory distress, rhonchi, or wheezes noted. Cardiovascular: Regular rate and rhythm, S1 and S2 audible. No murmurs, rubs, or gallops. GI: Soft, nondistended, normal bowel sounds. Extremities:No joint swelling, pedal edema, or tenderness noted. Back: Normal inspection. No vertebral tenderness noted. No CVA tenderness. Neurological: Alert, oriented 3, no focal deficits. Psychiatric: normal affect, normal mood. Skin: Dry, intact, warm. Normal color. No rashes. Alendronate Sodium [Fosamax] 70 mg PO MO 04/21/18 [History] Aspirin [Lo-Dose Aspirin EC] 81 mg PO DAILY 04/21/18 [History] B Complex with Vitamin C [[place]ee with C] 1 tab PO DAILY 04/21/18 [History] Calcium Carb,Cit/D3/Phytostrol [Citracal D + Heart Health Tab] 1 tab PO DAILY 04/21/18 [History] Cholecalciferol (D-3) [Vitamin D] 5,000 unit PO DAILY 04/21/18 [History] Fluticasone Propionate Nasal [Flonase] 2 spr NS DAILY 04/21/18 [History] Lactobacillus Combination No.9 [Adult 50 + Probiotic] 1 cap PO DAILY 04/21/18 [History] Potassium Chloride [K-Tab ER] 20 meq PO BID 04/21/18 [History] Rosuvastatin Calcium 20 mg PO DAILY 04/21/18 [History] Sertraline [Zoloft] 75 mg PO DAILY 04/21/18 [History] Budesonide/Formoterol 160/4.5 [Symbicort 160/4.5] 2 puff IH BIDR #1 inh 04/25/18 [Rx] Tiotropium Shirley [Spiriva Respimat] 2 puff IH DAILY 06/26/18 [History] Albuterol Sulfate [Ventolin Hfa] 2 puff IH Q6H PRN 08/15/18 [History] LORazepam [Ativan] 0.5 - 1 mg PO HS 08/15/18 [History] Albuterol Neb [Proventil Neb] 2.5 mg IH QAM 11/04/18 [History] Clopidogrel [Plavix] 75 mg PO DAILY 11/04/18 [History] Furosemide [Lasix] 40 mg PO DAILY 11/04/18 [History] Levothyroxine Sodium 88 mcg PO QAM 11/04/18 [History] Metoprolol XL (24 HR) Succ [Toprol Xl] 25 mg PO DAILY 11/04/18 [History] Ranolazine [Ranexa] 500 mg PO BID 11/14/18 [History] Biotin 10,000 mcg PO DAILY 11/15/18 [History] Ipratropium/Albuterol Sulfate [Iprat-Albut 0.5-3(2.5) mg/3 ml] 3 ml IH Q6H 11/15/18 [History] Isosorbide DInitrate [Isosorbide Dinitrate] 30 mg PO BID 11/15/18 [History] Montelukast [Singulair] 10 mg PO QPM 11/15/18 [History] Allergy/AdvReac Type Severity Reaction Status Date / Time lactose AdvReac Abdominal Verified 11/03/18 07:11 Pain - Assessment and Plan (1) Sepsis Current Visit: Yes Status: Acute The patient had 3 sepsis criteria on admission. Likely secondary to pneumonia. Improved. Afebrile. Leukocytosis resolved. Tachycardia resolved. No longer tachypneic. Blood cultures on 11/13/18 are no growth to date 2 sets. Qualifiers: Sepsis type: sepsis due to unspecified organism Qualified Code(s): A41.9 - Sepsis, unspecified organism SNOMED Code(s): 97018050 (2) Pneumonia Current Visit: Yes Status: Acute HCAP. Location: Bilateral lower lobes. Causative organism: Unclear. Chest x-ray showed improved bibasilar pulmonary opacities. CT chest 11/14/18 showed increased consolidation in the bilateral lower lobes co ncerning for pneumonia. Strep pneumococcal and legionella urinary antigens negative. MRSA nasal screen positive. Currently on vancomycin and Zosyn. Qualifiers: Pneumonia type: due to unspecified organism Laterality: bilateral Lung location: lower lobe of lung Qualified Code(s): J18.1 - Lobar pneumonia, unspecified organism SNOMED Code(s): 171483266 (3) Urinary tract infection Current Visit: Yes Status: Acute Causative organism: Morganella Morgagni and VRE. Asymptomatic bacteriuria versus UTI. The patient had some urinary frequency, but was also receiving a lot of Lasix which could be contributing more so than an infection. Additionally, she had some difficulty starting her urine stream, but this has resolved since having a bowel movement. Clinically improved without appropriate treatment of the VRE. Currently on IV Zosyn and vancomycin. Qualifiers: Urinary tract infection type: acute cystitis Hematuria presence: without hematuria Qualified Code(s): N30.00 - Acute cystitis without hematuria SNOMED Code(s): 90007763 (4) Acute on chronic HFrEF (heart failure with reduced ejection fraction) Current Visit: Yes Status: Acute TTE completed during the last hospitalization showed an EF of 35%. BNP elevated at 1969. Pulmonary edema and pleural effusions noted on imaging. Management per the primary team. SNOMED Code(s): 715401354 (5) COPD with acute exacerbation Current Visit: Yes Status: Acute SNOMED Code(s): 582446182 (6) Acute respiratory failure with hypoxemia Current Visit: No Status: Acute Likely multifactorial: Pneumonia + CHF + COPD. Improved. Management per the primary team. SNOMED Code(s): 980818750 (7) Elevated troponin Current Visit: Yes Status: Resolved SNOMED Code(s): 898909082, 007171427, 011140696 (8) Peripheral vascular disease Current Visit: No Status: Chronic SNOMED Code(s): 744660946 (9) Hypothyroidism Current Visit: No Status: Acute Qualifiers: Hypothyroidism type: acquired Qualified Code(s): E03.9 - Hypothyroidism, unspecified SNOMED Code(s): 04960458 (10) Hypertension Current Visit: No Status: Chronic Qualifiers: Hypertension type: unspecified Qualified Code(s): I10 - Essential (primary) hypertension SNOMED Code(s): 54983064 (11) HLD (hyperlipidemia) Current Visit: No Status: Chronic Qualifiers: Hyperlipidemia type: unspecified Qualified Code(s): E78.5 - Hyperlipidemia, unspecified SNOMED Code(s): 69312384 (12) Anemia Current Visit: Yes Status: Chronic Qualifiers: Anemia type: unspecified type Qualified Code(s): D64.9 - Anemia, unspe cified SNOMED Code(s): 177024709 (13) Oral thrush Current Visit: Yes Status: Acute Nystatin mouthwash. SNOMED Code(s): 65489627 - Recommendations Recommendations: Recommend pulmonology to evaluate. Would not treat VRE in the urine since her urinary symptoms have resolved. Continue Vancomycin IV. Pharmacy to dose. Goal trough ~15. Continue Zosyn 3.375 grams IV Q8H. Start Nystatin mouthwash. Duration of treatment depends on the clinical picture. Can likely transition to PO doxycycline 100mg BID and Levaquin 750mg daily when ready for discharge to complete a 14 day course. Zyvox contraindicated due to the patient's use of Zo loft. Monitor renal function and for drug toxicity and dose-adjust antibiotics. Contact precautions per hospital policy. Past Med Surg Social Fam HX - Past Medical History Attestation: Yes The following information was validated with the patient. Source: patient, old records reviewed, nursing notes reviewed Medical history: COPD, coronary artery disease, hyperlipidemia, hypertension, osteoporosis, thyroid disease, other Additional medical history: stomach aneurysm Psychiatric history: anxiety, depression - Past Surgical History Surgical History: carotid endarterectomy, coronary bypass (CABG) Additional surgical history: Aortic Aneurism Repair, Stents in kidneys, 9 vascular surgeries to legs, [facility] 02/10/14 - Social History Smoking Status: Former smoker Smokeless Tobacco Status: No Alcohol use: none Drug use: none - Family History Sister Living Status: Hx Family Cardiac Disorders: Yes Son Hx Family Cardiac Disorders: Yes ([place]) Father Living Status: Hx Family Cardiac Disorders: Yes (CAD) Mother Living Status: Hx Family Cardiac Disorders: Yes (CAD) - VTE Documentation of Mechanical Device: Intermittent pneumatic compression device Consult Discharge Plan - Plan Referrals: Trupti Ojeda MD [Primary Care Provider] - 11/19/18 11:15 am () - Attending Attestation I have personally performed a face to face evaluation on this patient. I have re viewed and agree with the care plan. History and Exam by me shows: This is an addendum to original report dictated by Anna Hernandez CNP. Please refer to Anna's note for full detail. Patient is an 78-year-old woman who has extensive past medical history including terminal COPD came in with acute shortness of breath and was found to have a pneumonia bilateral lower lobes. MRSA screen was positive. Urine antigens were negative. Causative organisms unknown. We were asked to evaluate the patient and make further recommendations. Patient also had a urine culture positive for VRE and Morganella. Assessment and plan: Sepsis Healthcare associated pneumonia bilateral lower lobes causative organism not clear sputum culture just came back positive for gram-positive rods Urinary tract infection with VRE and Morganella Acute on chronic heart failure COPD exacerbation Recommendations: Reviewed the CAT scan of the chest with the pulmonary team and compared to the previous CAT scan from the previous admission. Patient is on SSRI. Based on what we found we think that switching the patient to oral levofloxacin and doxycycline for 2 more weeks should take care of the pneumonia. As for the VRE in the urine, patient is asymptomatic. So no recommendation to treat Patient needs to follow up as an outpatient with the pulmonary team Monitor labs and for drug toxicity
--- NOTE | 2018-11-18 13:19 | Pulmonology Consult Note ---
Date of Encounter: 11/18/18 Time of Encounter: 13:00 Assessment and Plan (1) Acute on chronic respiratory failure with hypoxia and hypercapnia Current Visit: No Status: Acute Patient presenting with acute on chronic hypoxic respiratory failure complicated by COPD exacerbation and CHF exacerbation. Patient is getting treated with bronchodilators and steroids. Please do not taper the steroid quickly as patient has significant COPD with lot of the infectious burden. Please do at least a slow 30 day taper. And we will see the patient in 6-8 weeks. (2) COPD with exacerbation Current Visit: No Status: Acute Patient with the severe COPD now with exacerbation she comes to the hospital recurrent because not only a COPD exacerbation CHF exacerbation also complicates the issue so please do with slow steroid taper over 30 days with antibiotics as recommended by infectious disease.. I went over the home bronchodilator regimen is reasonable to keep that regimen now we can alter the regimen once she is stable as an outpatient. (3) Pneumonia Current Visit: Yes Status: Acute Patient has a significant left lower lobe pneumonia complicating the COPD and CHF exacerbation agree with the ID team choice of antibiotics will see her in the clinic as an outpatient. Since patient has recurrent episodes of hospital ization please educated about salt water restriction and do a slow taper of prednisone. Qualifiers: Pneumonia type: due to unspecified organism Laterality: left Lung location: lower lobe of lung Qualified Code(s): J18.1 - Lobar pneumonia, unspecified organism History of Present Illness Consult date: 11/18/18 Requesting physician: Anna Hernandez Chief complaint: Shortness of breath History of present illness: 78-year-old female with past medical history significant for severe oxygen dependent COPD, systolic heart failure also complicated by diastolic dysfunction was recently admitted for CHF exacerbation comes with worsening shortness of breath and hypoxia found to have left lower lobe pneumonia with COPD exacerbation also complicated by CHF exacerbation acute on chronic respiratory failure patient is symptomatically getting better with current regimen of an tibiotics. Pulmonary was consulted for management of this is COPD exacerbation which is happening frequently complicated by acute on chronic systolic and diastolic heart failure exacerbation. Past Med Surg Social Fam HX - Past Medical History Medical history: COPD, coronary artery disease, hyperlipidemia, hypertension, osteoporosis, thyroid disease, other Additional medical history: stomach aneurysm Psychiatric history: anxiety, depression - Past Surgical History Surgical History: carotid endarterectomy, coronary bypass (CABG) Additional surgical history: Aortic Aneurism Repair, Stents in kidneys, 9 vascular surgeries to legs, [facility] 02/10/14 - Social History Smoking Status: Former smoker Smokeless Tobacco Status: No Alcohol use: none Drug use: none - Family History Sister Living Status: Hx Family Cardiac Disorders: Yes Son Hx Family Cardiac Disorders: Yes ([place]) Father Living Status: Hx Family Cardiac Disorders: Yes (CAD) Mother Living Status: Hx Family Cardiac Disorders: Yes (CAD) Medications and Allergies Alendronate Sodium [Fosamax] 70 mg PO MO 04/21/18 [History] Aspirin [Lo-Dose Aspirin EC] 81 mg PO DAILY 04/21/18 [History] B Complex with Vitamin C [[place] with C] 1 tab PO DAILY 04/21/18 [History] Calcium Carb,Cit/D3/Phytostrol [Citracal D + Heart Health Tab] 1 tab PO DAILY 04/21/18 [History] Cholecalciferol (D-3) [Vitamin D] 5,000 unit PO DAILY 04/21/18 [History] Fluticasone Propionate Nasal [Flonase] 2 spr NS DAILY 04/21/18 [History] Lactobacillus Combination No.9 [Adult 50 + Probiotic] 1 cap PO DAILY 04/21/18 [History] Potassium Chloride [K-Tab ER] 20 meq PO BID 04/21/18 [History] Rosuvastatin Calcium 20 mg PO DAILY 04/21/18 [History] Sertraline [Zoloft] 75 mg PO DAILY 04/21/18 [History] Budesonide/Formoterol 160/4.5 [Symbicort 160/4.5] 2 puff IH BIDR #1 inh 04/25/18 [Rx] Tiotropium Earling [Spiriva Respimat] 2 puff IH DAILY 06/26/18 [History] Albuterol Sulfate [Ventolin Hfa] 2 puff IH Q6H PRN 08/15/18 [History] LORazepam [Ativan] 0.5 - 1 mg PO HS 08/15/18 [History] Albuterol Neb [Proventil Neb] 2.5 mg IH QAM 11/04/18 [History] Clopidogrel [Plavix] 75 mg PO DAILY 11/04/18 [History] Furosemide [Lasix] 40 mg PO DAILY 11/04/18 [History] Levothyroxine Sodium 88 mcg PO QAM 11/04/18 [History] Metoprolol XL (24 HR) Succ [Toprol Xl] 25 mg PO DAILY 11/04/18 [History] Ranolazine [Ranexa] 500 mg PO BID 11/14/18 [History] Biotin 10,000 mcg PO DAILY 11/15/18 [History] Ipratropium/Albuterol Sulfate [Iprat-Albut 0.5-3(2.5) mg/3 ml] 3 ml IH Q6H 11/15/18 [History] Isosorbide DInitrate [Isosorbide Dinitrate] 30 mg PO BID 11/15/18 [History] Montelukast [Singulair] 10 mg PO QPM 11/15/18 [History] Allergy/AdvReac Type Severity Reaction Status Date / Time lactose AdvReac Abdominal Verified 11/03/18 07:11 Pain All Systems: The remainder of the systems were reviewed and are negative Physical Examination Vital Signs: Vital Signs, Last 4 Hours Temp Pulse Resp BP Pulse Ox 11/18/18 11:19 98.4 F 89 16 108/55 98 General appearance: no acute distress Effort: mildly labored Auscultation: bilateral: diminished breath sounds, wheezes Cardiovascular: regular rate and rhythm Extremities: no cyanosis, no edema normal mental status, non-focal exam mood appropriate Results - Laboratory Findings CBC and BMP: 11/18/18 01:42 11/18/18 01:42 ABG ABG pH 7.37 pH Units (7.32-7.45) 11/13/18 18:17 ABG pCO2 46 mmHg (35-45) H 11/13/18 18:17 ABG pO2 73 mmHg (85-104) L 11/13/18 18:17 ABG O2 Saturation 94 % (95-98) L 11/13/18 18:17 PT/INR, D-dimer PT 11.6 Seconds (9.4-12.1) 11/13/18 17:42 Abnormal lab findings: Abnormal lab results WBC 12.7 K/mcL (4.3-11.1) H 11/14/18 06:10 RBC 2.62 M/mcL (3.82-4.97) L 11/18/18 01:42 Hgb 7.7 g/dL (11.5-15.4) L 11/18/18 01:42 Hct 25.3 % (35.3-44.9) L 11/18/18 01:42 MCHC 30.4 g/dL (31.6-35.5) L 11/18/18 01:42 RDW 15.7 % (11.5-14.5) H 11/18/18 01:42 Band Neutrophils % 6.0 % (0-4) H 11/14/18 06:10 Neutrophils # 10.9 K/mcL (1.6-8.9) H 11/14/18 06:10 Reactive Lymphocytes Present (Not Present) A 11/14/18 06:10 ABG pCO2 46 mmHg (35-45) H 11/13/18 18:17 ABG pO2 73 mmHg (85-104) L 11/13/18 18:17 ABG Total CO2 28 mEq/L (20-26) H 11/13/18 18:17 ABG O2 Saturation 94 % (95-98) L 11/13/18 18:17 Sodium 133 mEq/L (136-145) L 11/13/18 17:42 Potassium 3.3 mEq/L (3.5-5.1) L 11/15/18 04:05 Chloride 95 mEq/L (98-107) L 11/14/18 06:10 Carbon Dioxide 31 mEq/L (23-29) H 11/18/18 01:42 BUN 33 mg/dL (8-23) H 11/18/18 01:42 Est GFR ( Amer) 56 (> 60) L 11/14/18 06:10 Est GFR (Non-Af Amer) 55 (> 60) L 11/18/18 01:42 BUN/Creatinine Ratio 34 (6-26) H 11/18/18 01:42 Glucose 124 mg/dL (70-105) H 11/18/18 01:42 Calculated Osmolality 303 (280-300) H 11/16/18 07:26 Lactic Acid 2.3 mmol/L (0.5-2.2) H 11/13/18 19:58 Troponin I 0.05 ng/mL (< 0.04) H* 11/13/18 17:42 B-Natriuretic Peptide 2817 pg/mL (Less than 100) H 11/16/18 07:06 Procalcitonin 2.41 ng/mL (0.00-0.15) H 11/14/18 06:10 Urine Clarity Turbid (Clear) A 11/15/18 05:50 Urine Nitrite Positive (Negative) A 11/15/18 05:50 Ur Leukocyte Esterase Large (Negative) H 11/15/18 05:50 Urine Microscopic WBC TNTC per hpf (0-3) H 11/15/18 05:50 Ur Squamous Epith Cells Many per lpf (None-Few) H 11/15/18 05:50 Urine Bacteria Moderate per hpf (None-Few) H 11/15/18 05:50 Ur Culture Indicated? YES (NO) A 11/15/18 05:50 Nasal Screen MRSA (PCR) DETECTED (Not Detect) A 11/16/18 17:00 - Microbiology Findings Microbiology Findings: Microbiology, Last 48 Hours 11/14/18 13:00 Sputum Culture - Preliminary Sputum Gram Positive Rods 11/15/18 05:50 Urine Culture - Preliminary Urine,Catheterized (Straight) Morganella favian.ssp morganii Vancomycin Resistant Enterococcus faecium - Clinical Findings Intake & Output: Intake & Output 11/17/18 11/18/18 11/18/18 23:59 07:59 15:59 Intake Total 350 / 910 100 / 200 100 / 200 Output Total 200 / 200 Balance 350 / 510 -100 / 0 100 / 0 Consult Discharge Plan - Plan Referrals: Trupti Ojeda MD [Primary Care Provider] - 11/19/18 11:15 am ()
--- NOTE | 2018-11-18 13:32 | Internal Med Progress Note ---
Hospitalist Progress Note - Encounter Date of Encounter: 11/18/18 Time of Encounter: 13:27 - Subjective Interval History: Ms. Liang is an 78yo woman who was brought by EMS to [facility] ED due to severe hypoxia and SOB. At bedside today, pt reports feeling better with no acute events o/n or new complaints. Pt reports improved voiding with no pain and less straining. Reports abdominal heaviness improving. Denied fever, chills, fatigue, night sweats, WADSWORTH, chest pain, palpitations, cough, wheezing or N/V/D. - Exam Vitals: Temp Pulse Resp BP Pulse Ox 98.4 F 89 16 108/55 98 11/18/18 11:19 11/18/18 11:19 11/18/18 11:19 11/18/18 11:11/18/18 11:19 Exam: General: conversant, cachectic appearing, in no acute distress Heart: RRR, + murmur L sternal border, no thrill or heaves. Distant pulses Resp: improved LL consolidation, diffuse decreased breath sounds, bibasilar crackles, no rhonci, or wheezing. No accessory muscle use. No cyanosis. HENT: PERRLA, neck supple, no lymphadenopathy, no thyromegaly Abdomen: soft, non-distended, round abdomen, normoactive bowel sounds x4 Skin: dry, no scars other than sternotomy s/p CABG, no rashes : no bladder tenderness MSK: mild nail clubbing noted Neuro: alert and oriented, comprehends and answers questions appropriately; strength 5/5 UE and LE b/l - Summary of Assessment and Plan Summary of Assessment and Plan: 78yo F w/ hx of COPD on 4L O2, COPD hospitalization 05/2018, MRSA PNA 07/2018, HFrEF 35% 10/24, and hypoxia p/w increased dyspnea, cough, sputum production, p rocalcitonin 2.41, CXR findings of bibasilar interstitial infiltrates, and chest CT that demonstrates bibasilar consolidation, concerning for PNA causing COPD exacerbation; SpCx +GPR. Dysuria, +pyuria, +leukocyte esterase, and +nitrite c/w UTI; UACx +morganella and vanc resist enterococci. 1- A/c HFrEF exacerbation 35% (last KEVIN 11/04/18): BNP 2817 8/12; stable electrolytes; SBP tolerating; UOP stable - Chest xray unchanged from previous study - Closely monitor I/Os, monitor BPs, and trend electrolyte to assess response to diuresis - Switch Lasix to 80mg PO BID in anticipation of d/c 2- GPC PNA: hx of MRSA pneumonia 07/2018, viral antigens negative, SpCx +GPR - BCx pending final report - Per ID consult, continue Vancomycin IV with goal trough ~15 and Zosyn 3.375 grams IV Q8H. Duration of treatment depends on the clinical picture; can likely transition to PO doxycycline 100mg BID and Levaquin 750mg daily when ready for discharge to complete a 14 day course. Zyvox contraindicated due to the patient's use of Zoloft. 3- COPD exacerbation: 2/2 PNA - Continue ipratropium/albuterol nebulizer 3mL ih prn 4- GNR and GPC UTI - Per ID, would not treat VRE in the urine since pt urinary symptoms have resolved 5- Oral thrush - Start Nystatin mouthwash 6- Severe sepsis: resolved; at admission, 3/4 SIRS (afebrile) w/ PNA and UTI above; lactate 2.2. /, pt afebrile, hr 95, wbc 7.6, and PNA that's being treated 7- Acute on chronic hypoxic respiratory failure: currently on home 3.5L O2 - Acute comp resolved 8- Dysphagia: assessment showed functional strength and intact ROM of oral st ructures - Consider outpatient GI/EGD - Follow nutrition rec's to address nutritional deficiencies; cardiac diet with Magic Cup Vanilla TID WM 9- Chronic normocytic anemia: 2/2 chronic disease - Trend H/H and continue to monitor - Order 4am type and screen - Order iron studies, ferritin, b12, and folate - Follow nutrition rec's as above 10- PAD/CAD/HLD - Continue antiplatelets, statin, and imdur 11- HTN - Continue home meds as above 12- Hypothyroidism - Continue home synthroid 13- DVT prophylaxis - Heparin SQ - Time Spent with Patient Total time spent is greater than 50% in coordination of care (as documented) at patient's floor/unit and/or counseling patient: Internal Medicine: Result - Labs CBC & Chem 7: 11/18/18 01:42 11/18/18 01:42 Labs: Short CBC 11/18/18 Range/Units 01:42 WBC 7.6 (4.3-11.1) K/mcL Hgb 7.7 L (11.5-15.4) g/dL Hct 25.3 L (35.3-44.9) % Plt Count 179 (140-400) K/mcL BMP 11/18/18 01:42 Sodium 139 Potassium 4.5 Chloride 100 Carbon Dioxide 31 H BUN 33 H Creatinine 0.97 Glucose 124 H Calcium 8.9 - ABG Interpretation ABG results: ABG ABG pH 7.37 pH Units (7.32-7.45) 11/13/18 18:17 ABG pCO2 46 mmHg (35-45) H 11/13/18 18:17 ABG pO2 73 mmHg (85-104) L 11/13/18 18:17 ABG O2 Saturation 94 % (95-98) L 11/13/18 18:17 PT/INR, D-dimer PT 11.6 Seconds (9.4-12.1) 11/13/18 17:42 - Impressions Impressions Chest X-Ray 11/18/18 09:26 IMPRESSION: Left lower lobe opacification likely related to infiltrate and/or atelectasis and small effusion. Cardiomegaly and congestion. Postthoracotomy changes. COPD. D/ / 11/18/2018 11:08:48 Genet Gamble MD / [facility] Interpreting Provider: Genet Gamble MD - VTE Documentation of Mechanical Device: Intermittent pneumatic compression device Consult Discharge Plan - Plan Referrals: Trupti Ojeda MD [Primary Care Provider] - 11/19/18 11:15 am ()
[2018-11-18] MEDS: Nystatin SUSP 5 ML UD.LIQ PO SCH ×3 (14:18→21:45)
[2018-11-18 17:34] LABS: % Iron Saturation 3 % (15-50); Iron 13 mcg/dL (50-170); Transferrin 272 mg/dL (203-362)
[2018-11-18 17:52] LABS: Ferritin 120 ng/mL (10-120)
[2018-11-18] MEDS: *HR* LORazepam 1 MG TABLET PO PRN (23:28)
[2018-11-19] MEDS: Piperacillin/Tazobactam 3.375 GM in 0.9 % Sodium Chloride Mini Bag 100 ML IVPB SCH ×3 (00:54→09:18)
[2018-11-19 05:57] LABS: Basophils % 0.1 %; Eosinophils # 0.1 K/mcL (0.0-0.6); Hematocrit 26.2 % (35.3-44.9); Immature Granulocytes % 0.5 % (0-4); Lymphocytes # 1.8 K/mcL (0.6-4.6); Lymphocytes % 20.5 %; Mean Corpuscular HGB Conc 30.5 g/dL (31.6-35.5); Mean Corpuscular Hemoglobin 29.3 pg (28.0-33.3); Mean Platelet Volume 11.1 fL (9.4-12.4); Monocytes # 0.7 K/mcL (0.0-1.3); Neutrophils # 6.1 K/mcL (1.6-8.9); Platelet Count 179 K/mcL (140-400); Red Blood Count 2.73 M/mcL (3.82-4.97); Red Cell Distribution Width 15.5 % (11.5-14.5); Segmented Neutrophils % 69.9 %; White Blood Count 8.8 K/mcL (4.3-11.1)
[2018-11-19 06:15] LABS: BUN/Creatinine Ratio 30 (6-26); Blood Urea Nitrogen 30 mg/dL (8-23); Carbon Dioxide 32 mEq/L (23-29); Chloride 100 mEq/L (98-107); Glucose 88 mg/dL (70-105); Osmolality,Calculated 294 (280-300); Potassium 4.5 mEq/L (3.5-5.1); Sodium 139 mEq/L (136-145); eGFR For African Americans > 60 (> 60); eGFR For Non-African Americans 54 (> 60)
--- NOTE | 2018-11-19 06:56 | Internal Med Progress Note ---
<Susie Newby - Last Filed: 11/19/18 09:20> Hospitalist Progress Note - Encounter Date of Encounter: 11/19/18 Time of Encounter: 09:22 - Subjective Interval History: Mr. Liang was examined at bedside today. Pt appears well and comfortable. Denied acute events o/n or new complaints. Reports having 2x BM yesterday and voiding more urine each time she goes to the bathroom; denies dysuria or straining. Denies fever, chills, nightsweats, WADSWORTH, chest pain, N/V/D, wheezing, or new pains. - Exam Vitals: Temp Pulse Resp BP Pulse Ox 97.6 F 97 16 114/64 96 11/19/18 04:42 11/19/18 04:42 11/19/18 04:42 11/19/18 04:42 11/19/18 04:42 Exam: General: conversant, cachectic appearing, in no acute distress Heart: RRR, + diastolic murmur L sternal border, no thrill or heaves. Distant pulses Resp: improved LL consolidation, diffuse decreased breath sounds, bibasilar crackles, no rhonci, or wheezing. No accessory muscle use. No cyanosis. HENT: PERRLA, neck supple, no lymphadenopathy, no thyromegaly Abdomen: soft, non-distended, round abdomen, normoactive bowel sounds x4 Skin: dry, no scars other than sternotomy s/p CABG, no rashes : no bladder tenderness MSK: mild nail clubbing noted Neuro: alert and oriented, comprehends and answers questions appropriately - Summary of Assessment and Plan Summary of Assessment and Plan: 78yo F w/ hx of COPD on 4L O2, COPD hospitalization 05/2018, MRSA PNA 07/2018, HFrEF 35% 10/24, and hypoxia p/w increased dyspnea, cough, sputum production, procalcitonin 2.41, CXR findings of bibasilar interstitial infiltrates, and chest CT that demonstrates bibasilar consolidation, concerning for PNA causing COPD exacerbation; SpCx +GPR. Dysuria, +pyuria, +leukocyte esterase, and +nitrite c/w UTI; UACx +morganella and vanc resist enterococci. 1- A/c HFrEF exacerbation 35% (last KEVIN 11/04/18): BNP 1920 11/18; stable electrolytes; SBP tolerating; UOP improving - Closely monitor I/Os, monitor BPs, and trend electrolyte to assess response to diuresis - Continue Lasix to 80mg PO BID in anticipation of d/c 2- GPC PNA: hx of MRSA pneumonia 07/2018, viral antigens negative, SpCx +GPR, BCx negative x2 - Per ID consult, continue Vancomycin IV with goal trough ~15 and Zosyn 3.375 grams IV Q8H. Duration of treatment depends on the clinical picture; can likely transition to PO doxycycline 100mg BID and Levaquin 750mg daily when ready for discharge to complete a 14 day course. Zyvox contraindicated due to the patient's use of Zoloft. 3- COPD exacerbation: 2/2 PNA - Continue ipratropium/albuterol nebulizer 3mL ih prn 4- GNR and GPC UTI - Per ID, would not treat VRE in the urine since pt urinary symptoms have resolved 5- Oral thrush - Start Nystatin mouthwash 6- Severe sepsis: resolved; at admission, 3/4 SIRS (afebrile) w/ PNA and UTI above; lactate 2.2. 11/18, pt afebrile, hr 95, wbc 7.6, and PNA that's being treated 7- Acute on chronic hypoxic respiratory failure: currently on home 3.5L O2 - Acute comp resolved 8- Dysphagia: assessment showed functional strength and intact ROM of oral structures - Consider outpatient GI/EGD - Follow nutrition rec's to address nutritional deficiencies; cardiac diet with Magic Cup Vanilla TID WM 9- Chronic normocytic anemia: 2/2 chronic disease (low iron, low %sat, normal ferritin, normal transferrin) - Trend H/H and continue to monitor - Follow nutrition rec's as above 10- PAD/CAD/HLD - Continue antiplatelets, statin, and imdur 11- HTN - Continue home meds as above 12- Hypothyroidism - Continue home synthroid 13- DVT prophylaxis - Heparin SQ - Time Spent with Patient Total time spent is greater than 50% in coordination of care (as documented) at patient's floor/unit and/or counseling patient: Internal Medicine: Result - Labs CBC & Chem 7: 11/19/18 05:02 11/19/18 05:02 Labs: Short CBC 11/19/18 Range/Units 05:02 WBC 8.8 (4.3-11.1) K/mcL Hgb 8.0 L (11.5-15.4) g/dL Hct 26.2 L (35.3-44.9) % Plt Count 179 (140-400) K/mcL Neutrophils # 6.1 (1.6-8.9) K/mcL BMP 11/19/18 05:02 Sodium 139 Potassium 4.5 Chloride 100 Carbon Dioxide 32 H BUN 30 H Creatinine 0.99 Glucose 88 Calcium 9.0 - ABG Interpretation ABG results: ABG ABG pH 7.37 pH Units (7.32-7.45) 11/13/18 18:17 ABG pCO2 46 mmHg (35-45) H 11/13/18 18:17 ABG pO2 73 mmHg (85-104) L 11/13/18 18:17 ABG O2 Saturation 94 % (95-98) L 11/13/18 18:17 PT/INR, D-dimer PT 11.6 Seconds (9.4-12.1) 11/13/18 17:42 - Impressions Impressions Chest X-Ray 11/18/18 09:26 IMPRESSION: Left lower lobe opacification likely related to infiltrate and/or atelectasis and small effusion. Cardiomegaly and congestion. Postthoracotomy changes. COPD. D/ / 11/18/2018 11:08:48 Genet Gamble MD / [facility] Interpreting Provider: Genet Gamble MD - VTE Documentation of Mechanical Device: Intermittent pneumatic compression device Consult Discharge Plan - Plan Referrals: Trupti Ojeda MD [Primary Care Provider] - 11/19/18 11:15 am () <Diego Varma - Last Filed: 11/19/18 16:05> Hospitalist Progress Note - Encounter Date of Encounter: 11/19/18 - Exam Vitals: Temp Pulse Resp BP Pulse Ox 97.5 F L 86 16 113/64 94 11/19/18 15:14 11/19/18 15:14 11/19/18 15:14 11/19/18 15:14 11/19/18 15:14 - Time Spent with Patient Total time spent is greater than 50% in coordination of care (as documented) at patient's floor/unit and/or counseling patient: Internal Medicine: Result - Labs CBC & Chem 7: 11/19/18 05:02 11/19/18 05:02 Labs: Short CBC 11/19/18 Range/Units 05:02 WBC 8.8 (4.3-11.1) K/mcL Hgb 8.0 L (11.5-15.4) g/dL Hct 26.2 L (35.3-44.9) % Plt Count 179 (140-400) K/mcL Neutrophils # 6.1 (1.6-8.9) K/mcL BMP 11/19/18 05:02 Sodium 139 Potassium 4.5 Chloride 100 Carbon Dioxide 32 H BUN 30 H Creatinine 0.99 Glucose 88 Calcium 9.0 - ABG Interpretation ABG results: ABG ABG pH 7.37 pH Units (7.32-7.45) 11/13/18 18:17 ABG pCO2 46 mmHg (35-45) H 11/13/18 18:17 ABG pO2 73 mmHg (85-104) L 11/13/18 18:17 ABG O2 Saturation 94 % (95-98) L 11/13/18 18:17 PT/INR, D-dimer PT 11.6 Seconds (9.4-12.1) 11/13/18 17:42 - Attending Attestation I examined this patient and my medical decision-making was reviewed with the medical student. I agree with the documented findings, disposition and treatment plan as described except to the extent set forth below. Symptoms improving, no CP, SOB, n/v, fevers/chills, dysuria. VS: reviewed, labs: reviewed. On exam patient is frail appearing female in no acute distress. Lung sounds clear. Continue Prednisone, PO Lasix, Omnicef and Doxycycline per ID recs.
[2018-11-19] MEDS: Budesonide/Formoterol 160/4.5 1 PUFF INH IH SCH ×2 (07:49→22:34)
[2018-11-19] MEDS: Tiotropium 18 MCG inhalation IH SCH (07:49)
[2018-11-19] MEDS: Albuterol 2.5 MG/3 ML NEBULIZER IH SCH (07:54)
[2018-11-19] MEDS: predniSONE 10 MG TABLET PO SCH (08:47)
[2018-11-19] MEDS: Isosorbide MONOnitrate (24 HR) 30 MG TAB.ER.24H PO SCH ×2 (08:47→21:18)
[2018-11-19] MEDS: Furosemide 40 MG TABLET PO SCH (08:47)
[2018-11-19] MEDS: Ranolazine 500 MG TAB.ER.12H PO SCH ×2 (08:47→21:17)
[2018-11-19] MEDS: Nystatin SUSP 5 ML UD.LIQ PO SCH ×4 (08:47→21:28)
[2018-11-19] MEDS: Aspirin Enteric Coated 81 MG Tablet PO SCH (08:48)
[2018-11-19] MEDS: Metoprolol XL (24 HR) Succ 25 MG TAB.ER.24H PO SCH (08:48)
[2018-11-19] MEDS: Fluticasone Propionate Nasal 50 MCG/SPRAY BOTTLE NS SCH (08:49)
[2018-11-19] MEDS ORDERED: Aminoglycoside Consult 1 EACH MC ONE (10:39)
--- NOTE | 2018-11-19 12:37 | Pulmonology Progress Note ---
Date of Encounter: 11/19/18 Time of Encounter: 08:00 Assessment and Plan (1) Acute on chronic respiratory failure with hypoxia and hypercapnia Current Visit: No Status: Acute Situation is complicated by pneumonia and COPD exacerbation will need a prolon ged steroid taper patient needs to be mobilized otherwise she will have prolonged hospital stay. Encouraged to sit up more and to do airway clearance device and also do incentive spirometry (2) COPD with exacerbation Current Visit: No Status: Acute Patient will need prolonged steroid taper over 30 days we see her in clinic was here in 6-8 weeks. To keep the home bronchodilator regimen. Make sure she has a nebulizer machine on discharge (3) Pneumonia Current Visit: Yes Status: Acute Continue current regimen of antibiotics according to infectious disease. Pulmonary we will sign off wheeze call with questions Qualifiers: Pneumonia type: due to unspecified organism Laterality: left Lung location: lower lobe of lung Qualified Code(s): J18.1 - Lobar pneumonia, unspecified organism Subjective Principal diagnosis: COPD exacerbation and pneumonia Interval history: Patient with advanced COPD no presenting with pneumonia and COPD exacerbation complicated by a hydrostatic pulmonary edema due to CHF exacerbation. Objective PUL Vital signs: Last Vital Signs Temp 97.7 F 11/19/18 10:42 Pulse 89 11/19/18 10:42 Resp 20 11/19/18 10:42 BP 107/64 11/19/18 10:42 Pulse Ox 97 11/19/18 10:42 General appearance: no acute distress (Feeling tired and weak) Auscultation: bilateral: diminished breath sounds, wheezes (Minimal scattered wheezes) Cardiovascular: regular rate and rhythm Gastrointestinal: normoactive bowel sounds Extremities: no edema normal mental status, non-focal exam mood appropriate Results - Laboratory Findings CBC and BMP: 11/19/18 05:02 11/19/18 05:02 ABG ABG pH 7.37 pH Units (7.32-7.45) 11/13/18 18:17 ABG pCO2 46 mmHg (35-45) H 11/13/18 18:17 ABG pO2 73 mmHg (85-104) L 11/13/18 18:17 ABG O2 Saturation 94 % (95-98) L 11/13/18 18:17 PT/INR, D-dimer PT 11.6 Seconds (9.4-12.1) 11/13/18 17:42 Abnormal lab findings: Abnormal lab results WBC 12.7 K/mcL (4.3-11.1) H 11/14/18 06:10 RBC 2.73 M/mcL (3.82-4.97) L 11/19/18 05:02 Hgb 8.0 g/dL (11.5-15.4) L 11/19/18 05:02 Hct 26.2 % (35.3-44.9) L 11/19/18 05:02 MCHC 30.5 g/dL (31.6-35.5) L 11/19/18 05:02 RDW 15.5 % (11.5-14.5) H 11/19/18 05:02 Band Neutrophils % 6.0 % (0-4) H 11/14/18 06:10 Neutrophils # 10.9 K/mcL (1.6-8.9) H 11/14/18 06:10 Reactive Lymphocytes Present (Not Present) A 11/14/18 06:10 ABG pCO2 46 mmHg (35-45) H 11/13/18 18:17 ABG pO2 73 mmHg (85-104) L 11/13/18 18:17 ABG Total CO2 28 mEq/L (20-26) H 11/13/18 18:17 ABG O2 Saturation 94 % (95-98) L 11/13/18 18:17 Sodium 133 mEq/L (136-145) L 11/13/18 17:42 Potassium 3.3 mEq/L (3.5-5.1) L 11/15/18 04:05 Chloride 95 mEq/L (98-107) L 11/14/18 06:10 Carbon Dioxide 32 mEq/L (23-29) H 11/19/18 05:02 BUN 30 mg/dL (8-23) H 11/19/18 05:02 Est GFR ( Amer) 56 (> 60) L 11/14/18 06:10 Est GFR (Non-Af Amer) 54 (> 60) L 11/19/18 05:02 BUN/Creatinine Ratio 30 (6-26) H 11/19/18 05:02 Glucose 124 mg/dL (70-105) H 11/18/18 01:42 Calculated Osmolality 303 (280-300) H 11/16/18 07:26 Lactic Acid 2.3 mmol/L (0.5-2.2) H 11/13/18 19:58 Iron 13 mcg/dL (50-170) L 11/18/18 16:49 % Saturation 3 % (15-50) L 11/18/18 16:49 Troponin I 0.05 ng/mL (< 0.04) H* 11/13/18 17:42 B-Natriuretic Peptide 1920 pg/mL (Less than 100) H 11/19/18 05:02 Procalcitonin 2.41 ng/mL (0.00-0.15) H 11/14/18 06:10 Urine Clarity Turbid (Clear) A 11/15/18 05:50 Urine Nitrite Positive (Negative) A 11/15/18 05:50 Ur Leukocyte Esterase Large (Negative) H 11/15/18 05:50 Urine Microscopic WBC TNTC per hpf (0-3) H 11/15/18 05:50 Ur Squamous Epith Cells Many per lpf (None-Few) H 11/15/18 05:50 Urine Bacteria Moderate per hpf (None-Few) H 11/15/18 05:50 Ur Culture Indicated? YES (NO) A 11/15/18 05:50 Nasal Screen MRSA (PCR) DETECTED (Not Detect) A 11/16/18 17:00 Vancomycin Trough 19 mcg/mL (5-10) H 11/18/18 16:49 - Microbiology Findings Microbiology Findings: Microbiology, Last 48 Hours 11/13/18 17:51 Blood Culture - Final Peripheral Venipuncture No growth. Final report. 11/13/18 17:42 Blood Culture - Final Peripheral Venipuncture No growth. Final report. 11/14/18 13:00 Sputum Culture - Preliminary Sputum Gram Positive Rods 11/15/18 05:50 Urine Culture - Preliminary Urine,Catheterized (Straight) Morganella favian.ssp morganii Vancomycin Resistant Enterococcus faecium - Clinical Findings Intake & Output: Intake & Output 11/18/18 11/19/18 11/19/18 23:59 07:59 15:59 Intake Total 100 / 1040 100 / 220 120 / 220 Output Total 600 / 600 Balance 100 / 840 100 / -380 -480 / -380 Weight 46.4 kg - VTE Documentation of Mechanical Device: Intermittent pneumatic compression device Consult Discharge Plan - Plan Referrals: Trupti Ojeda MD [Primary Care Provider] - 11/19/18 11:15 am ()
[2018-11-19] MEDS ORDERED: Cefdinir 300 MG CAPSULE PO SCH (13:15)
[2018-11-19] MEDS: Doxycycline 100 MG CAPSULE PO SCH ×2 (15:29→21:17)
[2018-11-19] MEDS: Cefdinir 125 MG/5 ML UDC PO SCH ×2 (18:13→21:29)
[2018-11-19] MEDS: *HR* LORazepam 1 MG TABLET PO PRN (21:17)
[2018-11-20 05:17] LABS: BUN/Creatinine Ratio 30 (6-26); Blood Urea Nitrogen 28 mg/dL (8-23); Calcium 8.8 mg/dL (8.6-10.3); Carbon Dioxide 29 mEq/L (23-29); Chloride 102 mEq/L (98-107); Glucose 90 mg/dL (70-105); Osmolality,Calculated 289 (280-300); Sodium 137 mEq/L (136-145); eGFR For African Americans > 60 (> 60); eGFR For Non-African Americans 59 (> 60)
[2018-11-20] MEDS: predniSONE 10 MG TABLET PO SCH (10:04)
[2018-11-20] MEDS: Ranolazine 500 MG TAB.ER.12H PO SCH ×2 (10:05→21:48)
[2018-11-20] MEDS: Aspirin Enteric Coated 81 MG Tablet PO SCH (10:05)
[2018-11-20] MEDS: Isosorbide MONOnitrate (24 HR) 30 MG TAB.ER.24H PO SCH ×2 (10:05→21:48)
[2018-11-20] MEDS: Metoprolol XL (24 HR) Succ 25 MG TAB.ER.24H PO SCH (10:05)
[2018-11-20] MEDS: Furosemide 40 MG TABLET PO SCH (10:06)
[2018-11-20] MEDS: Cefdinir 125 MG/5 ML UDC PO SCH ×2 (10:07→22:54)
[2018-11-20] MEDS: Doxycycline 100 MG CAPSULE PO SCH ×2 (10:07→21:48)
[2018-11-20] MEDS: Nystatin SUSP 5 ML UD.LIQ PO SCH ×4 (10:07→21:49)
[2018-11-20] MEDS: Fluticasone Propionate Nasal 50 MCG/SPRAY BOTTLE NS SCH (10:12)
[2018-11-20] MEDS: Albuterol 2.5 MG/3 ML NEBULIZER IH SCH (10:35)
[2018-11-20] MEDS: Tiotropium 18 MCG inhalation IH SCH (10:35)
[2018-11-20] MEDS: Budesonide/Formoterol 160/4.5 1 PUFF INH IH SCH ×2 (10:35→20:29)
--- NOTE | 2018-11-20 11:03 | Internal Med Progress Note ---
<Susie Newby M - Last Filed: 11/20/18 13:35> Hospitalist Progress Note - Encounter Date of Encounter: 11/20/18 Time of Encounter: 08:00 - Subjective Interval History: Ms. Liang was examined at bedside today. She reports feeling well with no acute events o/n or new complaints. Reports SOB and breathing improved. Pt reports 1x BM and voiding without pain or straining. Denied fever, chills, fatigue, night sweats, [place], chest pain, palpitations, cough, wheezing or N/V/D. - Exam Vitals: Temp Pulse Resp BP Pulse Ox 98.5 F 93 16 104/59 99 11/20/18 10:17 11/20/18 10:17 11/20/18 10:17 11/20/18 10:17 11/20/18 10:17 Exam: General: conversant, cachectic appearing, in no acute distress Heart: RRR, + diastolic murmur L sternal border, no thrill or heaves. Distant pulses Resp: almost complete resolution of LLL consolidation, diffuse decreased breath sounds; no rhonci, or wheezing. No accessory muscle use. No cyanosis. HENT: PERRLA, neck supple, no lymphadenopathy, no thyromegaly Abdomen: soft, non-distended, round abdomen, normoactive bowel sounds x4 Skin: dry, no scars other than sternotomy s/p CABG, no rashes MSK: mild nail clubbing noted, unchanged from previous exam Neuro: alert and oriented, comprehends and answers questions appropriately - Assessment and Plan (1) Acute on chronic HFrEF (heart failure with reduced ejection fraction) Current Visit: Yes Status: Acute Assessment and Plan: A/c HFrEF exacerbation 35% (last KEVIN 11/04/18): BNP 1920 11/18; stable electrolytes; SBP tolerating; UOP improving - Closely monitor I/Os, monitor BPs, and trend electrolyte to assess response to diuresis - Continue Lasix 40mg PO QD to slow diuresis in anticipation of d/c (2) Acute exacerbation of chronic obstructive airways disease Current Visit: Yes Status: Acute Assessment and Plan: COPD exacerbation: 2/2 PNA - Continue ipratropium/albuterol nebulizer 3mL ih prn (3) Pneumonia Current Visit: Yes Status: Acute Assessment and Plan: PNA: hx of MRSA pneumonia 07/2018, viral antigens negative, SpCx +C. striatum, BCx negative x2 - Continue to follow ID rec's of PO doxycycline 100mg BID and Cefdinir 300mg in anticipation to d/c and complete 12/03/18. Lovaquin contraindicated d/t chronic prolonged QT; Zyvox contraindicated due to the patient's use of Zoloft. (4) Acute on chronic respiratory failure with hypoxia Current Visit: Yes Status: Acute Assessment and Plan: Acute comp resolved. (5) Oral thrush Current Visit: Yes Status: Acute Assessment and Plan: - Continue Nystatin mouthwash (6) Urinary tract infection Current Visit: Yes Status: Acute Assessment and Plan: GNR and GPC UTI - Per ID, would not treat VRE in the urine since pt urinary symptoms have resolved (7) Dysphagia Current Visit: Yes Status: Acute Assessment and Plan: assessment showed functional strength and intact ROM of oral structures - Consider outpatient GI/EGD - Follow nutrition rec's to address nutritional deficiencies; cardiac diet with Magic Cup Vanilla TID WM (8) Hypertension Current Visit: Yes Status: Chronic Assessment and Plan: Continue home meds (9) Hypothyroidism Current Visit: Yes Status: Chronic Assessment and Plan: Continue home synthroid (10) CAD (coronary artery disease) Current Visit: No Status: Chronic Assessment and Plan: Continue home meds (11) Anemia, chronic disease Current Visit: Yes Status: Chronic Assessment and Plan: Chronic normocytic anemia: 2/2 chronic disease (low iron, low %sat, normal ferritin, normal transferrin) - Trend H/H and continue to monitor - Follow nutrition rec's as above (12) Severe sepsis Current Visit: Yes Status: Resolved Assessment and Plan: resolved; at admission, 3/4 SIRS (afebrile) w/ PNA and UTI above; lactate 2.2. 8/13, pt afebrile, hr 95, wbc 7.6, and PNA that's being treated DVT Prophylaxis: Heparin SQ - Time Spent with Patient Total time spent is greater than 50% in coordination of care (as documented) at patient's floor/unit and/or counseling patient: Internal Medicine: Result - Labs CBC & Chem 7: 11/19/18 05:02 11/20/18 03:54 Labs: BMP 11/20/18 03:54 Sodium 137 Potassium 5.0 Chloride 102 Carbon Dioxide 29 BUN 28 H Creatinine 0.92 Glucose 90 Calcium 8.8 - ABG Interpretation ABG results: ABG ABG pH 7.37 pH Units (7.32-7.45) 11/13/18 18:17 ABG pCO2 46 mmHg (35-45) H 11/13/18 18:17 ABG pO2 73 mmHg (85-104) L 11/13/18 18:17 ABG O2 Saturation 94 % (95-98) L 11/13/18 18:17 PT/INR, D-dimer PT 11.6 Seconds (9.4-12.1) 11/13/18 17:42 - VTE Documentation of Mechanical Device: Intermittent pneumatic compression device Consult Discharge Plan - Plan Referrals: Trupti Ojeda MD [Primary Care Provider] - 11/19/18 11:15 am () <Diego Varma - Last Filed: 11/20/18 14:15> Hospitalist Progress Note - Encounter Date of Encounter: 11/20/18 - Exam Vitals: Temp Pulse Resp BP Pulse Ox 98.5 F 93 16 104/59 99 11/20/18 10:17 11/20/18 10:17 11/20/18 10:17 11/20/18 10:17 11/20/18 10:17 - Time Spent with Patient Total time spent is greater than 50% in coordination of care (as documented) at patient's floor/unit and/or counseling patient: Internal Medicine: Result - Labs CBC & Chem 7: 11/19/18 05:02 11/20/18 03:54 Labs: BMP 11/20/18 03:54 Sodium 137 Potassium 5.0 Chloride 102 Carbon Dioxide 29 BUN 28 H Creatinine 0.92 Glucose 90 Calcium 8.8 - ABG Interpretation ABG results: ABG ABG pH 7.37 pH Units (7.32-7.45) 11/13/18 18:17 ABG pCO2 46 mmHg (35-45) H 11/13/18 18:17 ABG pO2 73 mmHg (85-104) L 11/13/18 18:17 ABG O2 Saturation 94 % (95-98) L 11/13/18 18:17 PT/INR, D-dimer PT 11.6 Seconds (9.4-12.1) 11/13/18 17:42 - Attending Attestation I examined this patient and my medical decision-making was reviewed with the medical student. I agree with the documented findings, disposition and treatment plan as described except to the extent set forth below. Patient states feels better but scared she may become short of breath. Denies orthopnea, CP, PND, n/v. Lungs have fair air exchange and breath sounds about same since yesterday. Continue monitor today, will likely be stable for DC tomorrow. <Susie Newby - Last Filed: 11/20/18 13:35> (3) Pneumonia Qualifiers: Pneumonia type: due to unspecified organism Laterality: bilateral Lung location: lower lobe of lung Qualified Code(s): J18.1 - Lobar pneumonia, unspecified organism (6) Urinary tract infection Qualifiers: Urinary tract infection type: acute cystitis Hematuria presence: without hematuria Qualified Code(s): N30.00 - Acute cystitis without hematuria (8) Hypertension Qualifiers: Hypertension type: unspecified Qualified Code(s): I10 - Essential (primary) hypertension (9) Hypothyroidism Qualifiers: Hypothyroidism type: unspecified Qualified Code(s): E03.9 - Hypothyroidism, unspecified (10) CAD (coronary artery disease) Qualifiers: Coronary Disease-Associated Artery/Lesion type: unspecified vessel or lesion type [place] vs. transplanted heart: [place] heart Associated angina: without angina Qualified Code(s): I25.10 - Atherosclerotic heart disease of [place] coronary artery without angina pectoris
[2018-11-20] MEDS: *HR* LORazepam 1 MG TABLET PO PRN (22:06)
[2018-11-21] MEDS: Budesonide/Formoterol 160/4.5 1 PUFF INH IH SCH (07:56)
[2018-11-21] MEDS: Albuterol 2.5 MG/3 ML NEBULIZER IH SCH (07:56)
[2018-11-21] MEDS: Metoprolol XL (24 HR) Succ 25 MG TAB.ER.24H PO SCH (10:20)
[2018-11-21] MEDS: predniSONE 10 MG TABLET PO SCH (10:21)
[2018-11-21] MEDS: Aspirin Enteric Coated 81 MG Tablet PO SCH (10:22)
[2018-11-21] MEDS: Nystatin SUSP 5 ML UD.LIQ PO SCH ×3 (10:22→16:49)
[2018-11-21] MEDS: Doxycycline 100 MG CAPSULE PO SCH (10:23)
[2018-11-21] MEDS: Fluticasone Propionate Nasal 50 MCG/SPRAY BOTTLE NS SCH (10:24)
[2018-11-21] MEDS: Isosorbide MONOnitrate (24 HR) 30 MG TAB.ER.24H PO SCH (10:25)
[2018-11-21] MEDS: Ranolazine 500 MG TAB.ER.12H PO SCH (10:25)
[2018-11-21] MEDS: Furosemide 40 MG TABLET PO SCH (10:25)
[2018-11-21] MEDS: Cefdinir 125 MG/5 ML UDC PO SCH (10:26)
[2018-11-21] MEDS: Tiotropium 18 MCG inhalation IH SCH (11:14)
--- NOTE | 2018-11-21 14:22 | Electrocardiograph Report ---
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
--- NOTE | 2018-11-21 14:22 | Discharge Summary ---
<Judi Cam - Last Filed: 11/21/18 16:42> - NOTES TO OUTPATIENT PROVIDER Notes to Outpatient Provider: Patient was admitted for COPD exacerbation and CHF exacerbation and was found to be MRSA positive pneumonia. Please follow up with patient in regards to 30 day steroid taper, and completion of antibiotics doxycycline and ceftidinir. Patient is to follow up with pulmonology in 6-8 weeks. Date of Encounter: 11/21/18 Time of Encounter: 09:15 - Discharge Diagnosis (1) COPD with acute exacerbation Priority: Primary Status: Acute Assessment and Plan: Continue Slow steroid taper for 30 days with antibiotics - Continue home bronchodilator regimen with nebulizer. - Complete antibiotics doxycycline and Cefdinir for 14 days. (2) Acute exacerbation of CHF (congestive heart failure) Priority: Primary Status: Acute Assessment and Plan: Continue home medication, Lasix 40 mg Qualifiers: Qualified Code(s): I50.9 - Heart failure, unspecified (3) MRSA (methicillin resistant staphylococcus aureus) pneumonia Priority: Secondary Status: Acute Assessment and Plan: MRSA nasal screen positive - By mouth doxycycline 14 days - By mouth Cefdinir 10 days Qualifiers: Laterality: bilateral Lung location: unspecified part of lung Qualified Code(s): J15.212 - Pneumonia due to Methicillin resistant Staphylococcus aureus (4) Urinary tract infection Priority: Secondary Status: Acute Assessment and Plan: GNR and GPC UTI Resolved Qualifiers: Urinary tract infection type: acute cystitis Hematuria presence: without hematuria Qualified Code(s): N30.00 - Acute cystitis without hematuria (5) Anemia Priority: Secondary Status: Chronic Assessment and Plan: Chronic normocytic anemia: 2/2 chronic disease, follow-up with PCP Qualifiers: Anemia type: unspecified type Qualified Code(s): D64.9 - Anemia, unspecified (6) Hypothyroidism Priority: Secondary Status: Chronic Assessment and Plan: Continue home Synthroid Qualifiers: Hypothyroidism type: unspecified Qualified Code(s): E03.9 - Hypothyroidism, unspecified (7) Hypertension Priority: Secondary Status: Chronic Assessment and Plan: Continue home antihypertensive medications Qualifiers: Hypertension type: unspecified Qualified Code(s): I10 - Essential (primary) hypertension (8) Sepsis Priority: Secondary Status: Acute Assessment and Plan: Currently resolved, as pneumonia has improved. Qualifiers: Sepsis type: sepsis due to unspecified organism Qualified Code(s): A41.9 - Sepsis, unspecified organism; R65.20 - Severe sepsis without septic shock (9) Dysphagia Priority: Secondary Status: Acute Assessment and Plan: Assessment showed functional strength and intact ROM of oral structures - Consider outpatient GI/EGD Qualifiers: Qualified Code(s): R13.10 - Dysphagia, unspecified (10) Oral thrush Priority: Secondary Status: Acute Assessment and Plan: Currently resolved. Refill nystatin if needed. Hospital course: Ms. Liang is a 78 year old female pmhx of COPD on 4L O2, COPD hospitalization 05/2018, MRSA PNA 07/2018, HFrEF 35% 10/24, and hypoxia c/o increased dyspnea, cough, sputum production, procalcitonin 2.41, CXR findings of bibasilar interstitial infiltrates, and chest CT that demonstrates bibasilar consolidation, concerning for PNA causing COPD exacerbation; SpCx +GPR. U/A shows signs of UTI; UACx +morganella and vanc resist enterococci. Patient's COPDE has been successfully tx withprednisone, andipratropium/albuterol nebulizer. We recommend a prolonged steroid taper (10mg/week) with mobilization of pt. Per ID team, pt's PNA can be managed with doxycycline 100mg po BID and Cefdinir 300mg po BID. Pt's acute on chronic HFrEF is reasonably managed with home dosage of Lasix. For patients oral thrush, we recommend continuing nystatin mouthwash. Pt has improved significantly since hospitalization, however, does need increased O2 requirements when d/c. We recommend patient to f/u with PCP in the next 7 days and with pulmonary for managing chronic COPD. Discharge discussed with: patient - Time Spent with Patient Total time spent providing and/or coordinating discharge services: - Discharge Medications Prescriptions: New Doxycycline Calcium [Vibramycin] 50 mg PO BID 14 Days #100 mls predniSONE [PredniSONE] 10 mg PO DAILY #28 tablet Cefdinir [Omnicef] 300 mg PO Q12HR 14 Days #8400 mg MDD 600mg Continued Aspirin [Lo-Dose Aspirin EC] 81 mg PO DAILY B Complex with Vitamin C [Le-Bee with C] 1 tab PO DAILY Calcium Carb,Cit/D3/Phytostrol [Citracal D + Heart Health Tab] 1 tab PO DAILY Cholecalciferol (D-3) [Vitamin D] 5,000 unit PO DAILY Fluticasone Propionate Nasal [Flonase] 2 spr NS DAILY Lactobacillus Combination No.9 [Adult 50 + Probiotic] 1 cap PO DAILY Potassium Chloride [K-Tab ER] 20 meq PO BID Rosuvastatin Calcium 20 mg PO DAILY Sertraline [Zoloft] 75 mg PO DAILY Alendronate Sodium [Fosamax] 70 mg PO MO Budesonide/Formoterol 160/4.5 [Symbicort 160/4.5] 2 puff IH BIDR #1 inh Tiotropium [place] [Spiriva Respimat] 2 puff IH DAILY Albuterol Sulfate [Ventolin Hfa] 2 puff IH Q6H PRN PRN Reason: Shortness Of Breath LORazepam [Ativan] 0.5 - 1 mg PO HS Metoprolol XL (24 HR) Succ [Toprol Xl] 25 mg PO DAILY Levothyroxine Sodium 88 mcg PO QAM Furosemide [Lasix] 40 mg PO DAILY Clopidogrel [Plavix] 75 mg PO DAILY Albuterol Neb [Proventil Neb] 2.5 mg IH QAM Ranolazine [Ranexa] 500 mg PO BID Isosorbide DInitrate [Isosorbide Dinitrate] 30 mg PO BID Ipratropium/Albuterol Sulfate [Iprat-Albut 0.5-3(2.5) mg/3 ml] 3 ml IH Q6H Biotin 10,000 mcg PO DAILY Montelukast [Singulair] 10 mg PO QPM Home Medications: Alendronate Sodium [Fosamax] 70 mg PO MO 04/21/18 [History] Aspirin [Lo-Dose Aspirin EC] 81 mg PO DAILY 04/21/18 [History] B Complex with Vitamin C [Le-Bee with C] 1 tab PO DAILY 04/21/18 [History] Calcium Carb,Cit/D3/Phytostrol [Citracal D + Heart Health Tab] 1 tab PO DAILY 04/21/18 [History] Cholecalciferol (D-3) [Vitamin D] 5,000 unit PO DAILY 04/21/18 [History] Fluticasone Propionate Nasal [Flonase] 2 spr NS DAILY 04/21/18 [History] Lactobacillus Combination No.9 [Adult 50 + Probiotic] 1 cap PO DAILY 04/21/18 [History] Potassium Chloride [K-Tab ER] 20 meq PO BID 04/21/18 [History] Rosuvastatin Calcium 20 mg PO DAILY 04/21/18 [History] Sertraline [Zoloft] 75 mg PO DAILY 04/21/18 [History] Budesonide/Formoterol 160/4.5 [Symbicort 160/4.5] 2 puff IH BIDR #1 inh 04/25/18 [Rx] Tiotropium [place] [Spiriva Respimat] 2 puff IH DAILY 06/26/18 [History] Albuterol Sulfate [Ventolin Hfa] 2 puff IH Q6H PRN 08/15/18 [History] LORazepam [Ativan] 0.5 - 1 mg PO HS 08/15/18 [History] Albuterol Neb [Proventil Neb] 2.5 mg IH QAM 11/04/18 [History] Clopidogrel [Plavix] 75 mg PO DAILY 11/04/18 [History] Furosemide [Lasix] 40 mg PO DAILY 11/04/18 [History] Levothyroxine Sodium 88 mcg PO QAM 11/04/18 [History] Metoprolol XL (24 HR) Succ [Toprol Xl] 25 mg PO DAILY 11/04/18 [History] Ranolazine [Ranexa] 500 mg PO BID 11/14/18 [History] Biotin 10,000 mcg PO DAILY 11/15/18 [History] Ipratropium/Albuterol Sulfate [Iprat-Albut 0.5-3(2.5) mg/3 ml] 3 ml IH Q6H 11/15/18 [History] Isosorbide DInitrate [Isosorbide Dinitrate] 30 mg PO BID 11/15/18 [History] Montelukast [Singulair] 10 mg PO QPM 11/15/18 [History] Cefdinir [Omnicef] 300 mg PO Q12HR 14 Days #8400 mg MDD 600mg 11/21/18 [Rx] Doxycycline Calcium [Vibramycin] 50 mg PO BID 14 Days #100 mls 11/21/18 [Rx] predniSONE [PredniSONE] 10 mg PO DAILY #28 tablet 11/21/18 [Rx] Allergies/Adverse Reactions: Allergy/AdvReac Type Severity Reaction Status Date / Time lactose AdvReac Abdominal Verified 11/03/18 07:11 Pain Date of admission: 11/14/18 21:55 Primary care physician: Trupti Ojeda Consults: 11/14/18 09:19 Consult to Nurse Navigator [CONS] Routine Comment: CHF 11/14/18 16:46 Consult to Occupational Therapy [CONS] Routine Comment: Evaluate, develop and implement POC Reason for Consult: weakness Does patient have active BEDREST order?: No Is patient medically & hemodynamically stable?: Yes Patient assessed for mobility or mobilized this visit?: No Consult to Physical Therapy [CONS] Routine Comment: Evaluate, develop and implement POC Reason for Consult: weakness Does patient have active BEDREST order?: No Is patient medically & hemodynamically stable?: Yes Patient assessed for mobility or mobilized this visit?: No 11/18/18 09:14 Consult to Infectious Diseases [CONS] Routine Consulting Provider: [facility] [place] Reason for Consult: urine w VRE and resistant morganella, also pneumonia w hx MRSA, please assist with abx selection Call Completed: Yes 11/18/18 12:37 Consult to Pulmonology [CONS] Routine Consulting Provider: [facility] Reason for Consult: COPD, PNA Time Notified: 12:37 Call Completed: Yes Discharging clinician: Judi Cam Anticipated date of discharge: 11/21/18 - Constitutional Vitals: Temp Pulse Resp BP Pulse Ox 98.4 F 87 14 97/46 93 11/21/18 10:43 11/21/18 10:43 11/21/18 10:43 11/21/18 10:43 11/21/18 10:43 General appearance: Present: A&O X 3 Exam: General: conversant, cachectic appearing, in no acute distress Heart: RRR, + diastolic murmur L sternal border, no thrill or heaves. Distant pulses Resp: almost complete resolution of LLL consolidation, diffuse decreased breath sounds; no rhonci, or wheezing. No accessory muscle use. No cyanosis. HENT: PERRLA, neck supple, no lymphadenopathy, no thyromegaly Abdomen: soft, non-distended, round abdomen,non tender, normoactive bowel sounds x4 Skin: dry, no scars other than sternotomy s/p CABG, no rashes MSK: mild nail clubbing noted, unchanged from previous exam Neuro: alert and oriented, comprehends and answers questions appropriately - Patient Status Disposition: Home, Self-Care Condition: Fair Functional capacity at discharge: independent ambulation Overall status at discharge: patient is back to baseline - Discharge Instructions Instructions: Doxycycline (By mouth), Prednisone (By mouth), Pneumococcal Polyvalent Vaccine (Injection) Follow Up With: Trupti Ojeda MD [Primary Care Provider] - 11/19/18 11:15 am () Additional Instructions: He was admitted to the hospital for COPD exacerbation and pneumonia. Currently stable for discharge. Please follow up with her primary care physician, and nurse recruiter. We have discharged you on antibiotics and steroids. please take antibiotics to completion. Please take steroid taper as prescribed below: Take 1 pill 3 times a day for 1 day, then take 2 pills a day for 7 days, then take 1 pill for 7 days, then take half pill for 7 days. Please continue your home nebulizer treatments and other home medications. Return to the ED or seek medical attention if the following symptoms occur: Fever, chest pain, increasing shortness of breath, nausea, vomiting, blood in urine, blood in stool, or any other concerning symptoms. - Diet and Activity Activity: increase activity as tolerated Diet: advance to your usual diet - VTE Documentation of Mechanical Device: Intermittent pneumatic compression device <Diego Varma - Last Filed: 11/21/18 21:30> Date of Encounter: 11/21/18 Hospital course: Ms. Liang is a 78 year old female - Time Spent with Patient Total time spent providing and/or coordinating discharge services: Date of admission: 11/14/18 21:55 Primary care physician: Trupti Ojeda Consults: 11/14/18 09:19 Consult to Nurse Navigator [CONS] Routine Comment: CHF 11/14/18 16:46 Consult to Occupational Therapy [CONS] Routine Comment: Evaluate, develop and implement POC Reason for Consult: weakness Does patient have active BEDREST order?: No Is patient medically & hemodynamically stable?: Yes Patient assessed for mobility or mobilized this visit?: No Consult to Physical Therapy [CONS] Routine Comment: Evaluate, develop and implement POC Reason for Consult: weakness Does patient have active BEDREST order?: No Is patient medically & hemodynamically stable?: Yes Patient assessed for mobility or mobilized this visit?: No 11/18/18 09:14 Consult to Infectious Diseases [CONS] Routine Consulting Provider: [facility] Reason for Consult: urine w VRE and resistant morganella, also pneumonia w hx MRSA, please assist with abx selection Call Completed: Yes 11/18/18 12:37 Consult to Pulmonology [CONS] Routine Consulting Provider: [facility] [place] Reason for Consult: COPD, PNA Time Notified: 12:37 Call Completed: Yes - Constitutional Vitals: Temp Pulse Resp BP Pulse Ox 98.2 F 83 18 102/43 95 11/21/18 15:15 11/21/18 15:15 11/21/18 16:30 11/21/18 15:15 11/21/18 16:30 - Attending Attestation I examined this patient and my medical decision-making was reviewed with the resident physician. I agree with the documented findings, disposition and treatment plan as described except to the extent set forth below. Patient doing well today. Encouraged ambulation and increasing activity as tolerated. States she is breathing much better. We discussed monitoring fluid intake, monitoring sodium intake, and completing antibiotics until finished. Discharge time 40 min
[2018-11-21 15:22] VITALS: BP 102/43
[2018-11-21] MEDS: Ipratropium/Albuterol Neb 3 ML IH PRN (16:30)
--- NOTE | 2018-11-21 23:20 | Infectious Disease Progress No ---
ID Progress Note Date of Encounter: 11/21/18 Time of Encounter: 23:18 - Subjective Subjective: Patient seen and examined. Looks great. Denies any chest pain or cough. no sputum production. No diarrhea. NO urinary symptoms. at bedside VS noted Afebrile labs reviewed - Objective CBC & Chem 7: 11/19/18 05:02 11/20/18 03:54 - Exam Vitals: Temp Pulse Resp BP Pulse Ox 98.2 F 83 18 102/43 95 11/21/18 15:15 11/21/18 15:15 11/21/18 16:30 11/21/18 15:15 11/21/18 16:30 Exam: General: conversant, cachectic appearing, in no acute distress Heart: RRR, + diastolic murmur L sternal border, no thrill or heaves. Distant pulses Resp: almost complete resolution of LLL consolidation, diffuse decreased breath sounds; no rhonci, or wheezing. No accessory muscle use. No cyanosis. HENT: PERRLA, neck supple, no lymphadenopathy, no thyromegaly Abdomen: soft, non-distended, round abdomen, normoactive bowel sounds x4 Skin: dry, no scars other than sternotomy s/p CABG, no rashes MSK: mild nail clubbing noted, unchanged from previous exam Neuro: alert and oriented, comprehends and answers questions appropriately - Assessment and Plan (1) Sepsis Status: Acute The patient had 3 sepsis criteria on admission. Likely secondary to pneumonia. Improved. Afebrile. Leukocytosis resolved. Tachycardia resolved. No longer tachypneic. Blood cultures on 11/13/18 are no growth to date 2 sets. Qualifiers: Sepsis type: sepsis due to unspecified organism Qualified Code(s): A41.9 - Sepsis, unspecified organism; R65.20 - Severe sepsis without septic shock SNOMED Code(s): 11246642 (2) Pneumonia Status: Acute HCAP. Location: Bilateral lower lobes. Causative organism: Unclear. Chest x-ray showed improved bibasilar pulmonary opacities. CT chest 11/14/18 showed increased consolidation in the bilateral lower lobes concerning for pneumonia. Strep pneumococcal and legionella urinary antigens negative. MRSA nasal screen positive. Currently on vancomycin and Zosyn. Qualifiers: Pneumonia type: due to unspecified organism Laterality: bilateral Lung location: lower lobe of lung Qualified Code(s): J18.1 - Lobar pneumonia, unspecified organism SNOMED Code(s): 620424066 (3) Urinary tract infection Status: Acute Causative organism: Morganella Morgagni and VRE. Asymptomatic bacteriuria versus UTI. The patient had some urinary frequency, but was also receiving a lot of Lasix which could be contributing more so than an infection. Additionally, she had some difficulty starting her urine stream, but this has resolved since having a bowel movement. Clinically improved without appropriate treatment of the VRE. Currently on IV Zosyn and vancomycin. Qualifiers: Urinary tract infection type: acute cystitis Hematuria presence: without hematuria Qualified Code(s): N30.00 - Acute cystitis without hematuria SNOMED Code(s): 23533511 (4) Acute on chronic HFrEF (heart failure with reduced ejection fraction) Status: Acute TTE completed during the last hospitalization showed an EF of 35%. BNP elevated at 1969. Pulmonary edema and pleural effusions noted on imaging. Management per the primary team. SNOMED Code(s): 543521409 (5) COPD with acute exacerbation Status: Acute SNOMED Code(s): 317877817 (6) Acute respiratory failure with hypoxemia Status: Acute Likely multifactorial: Pneumonia + CHF + COPD. Improved. Management per the primary team. SNOMED Code(s): 944485625 (7) Elevated troponin Status: Resolved SNOMED Code(s): 741346935, 575222728, 142525217 (8) Peripheral vascular disease Status: Chronic SNOMED Code(s): 650549941 (9) Hypothyroidism Status: Acute Qualifiers: Hypothyroidism type: acquired Qualified Code(s): E03.9 - Hypothyroidism, unspecified SNOMED Code(s): 38629943 (10) Hypertension Status: Chronic Qualifiers: Hypertension type: unspecified Qualified Code(s): I10 - Essential (primary) hypertension SNOMED Code(s): 67159960 (11) HLD (hyperlipidemia) Status: Chronic Qualifiers: Hyperlipidemia type: unspecified Qualified Code(s): E78.5 - Hyperlipidemia, unspecified SNOMED Code(s): 70774730 (12) Anemia Status: Chronic Qualifiers: Anemia type: unspecified type Qualified Code(s): D64.9 - Anemia, unspeci fied SNOMED Code(s): 932552468 (13) Oral thrush Status: Acute Nystatin mouthwash. SNOMED Code(s): 26406800 - Recommendations Recommendations: After discussin with hospitalist team and pulmonary team, recommend d/c paitent on cefdinir and doxy for the pneumonia duration fo treatment 2 weeks no need to treat VRE since asymptomatic bacteruria - VTE Documentation of Mechanical Device: Intermittent pneumatic compression device Consult Discharge Plan - Plan Instructions: Doxycycline (By mouth), Prednisone (By mouth), Pneumococcal Polyvalent Vaccine (Injection) Additional Instructions: He was admitted to the hospital for COPD exacerbation and pneumonia. Currently stable for discharge. Please follow up with her primary care physician, and banking services clerk. We have discharged you on antibiotics and steroids. please take antibiotics to completion. Please take steroid taper as prescribed below: Take 1 pill 3 times a day for 1 day, then take 2 pills a day for 7 days, then take 1 pill for 7 days, then take half pill for 7 days. Please continue your home nebulizer treatments and other home medications. Return to the ED or seek medical attention if the following symptoms occur: Fever, chest pain, increasing shortness of breath, nausea, vomiting, blood in urine, blood in stool, or any other concerning symptoms. Referrals: Trupti Ojeda MD [Primary Care Provider] - 11/19/18 11:15 am () Prescriptions: Cefdinir [Omnicef] 300 mg PO Q12HR 14 Days #8400 mg MDD 600mg predniSONE [PredniSONE] 10 mg PO DAILY #28 tablet Doxycycline Calcium [Vibramycin] 50 mg PO BID 14 Days #100 mls
--- NOTE | 2018-11-25 14:36 | Physician Discharge Referral ---
Home Health/Hosp Referral Info Transfer to: Home Health Provider in Charge Post Discharge: PCP - Diagnosis (1) Urinary tract infection Priority: Secondary Status: Acute (2) Sepsis Priority: Secondary Status: Acute (3) Oral thrush Priority: Secondary Status: Acute (4) MRSA (methicillin resistant staphylococcus aureus) pneumonia Priority: Secondary Status: Acute (5) Hypothyroidism Priority: Secondary Status: Acute (6) Hypertension Priority: Secondary Status: Chronic (7) Dysphagia Priority: Secondary Status: Acute (8) COPD with acute exacerbation Priority: Secondary Status: Acute (9) Anemia Priority: Secondary Status: Chronic (10) Acute exacerbation of CHF (congestive heart failure) Priority: Primary Status: Acute - Respiratory Orders Oxygen / L per min Smoking Cessation: Smoking cessation has been advised. For more information, call the [employer] Quit Line at 0-504-SHEX-NOW. - Diet/Nutrition Diet/Nutrition Orders: Mechanical Soft, Cardiac - Activity Activity Orders: Up ad nabeel, Ambulate - Services Needed Following services are medically necessary services: Nursing, Home Health Aide, Physical Therapy, Occupational Therapy, Med Social Work - Transfer Medications Prescriptions: Cefdinir [Omnicef] 300 mg PO Q12HR 14 Days #8400 mg MDD 600mg predniSONE [PredniSONE] 10 mg PO DAILY #28 tablet Doxycycline Calcium [Vibramycin] 50 mg PO BID 14 Days #100 mls Home Medications: Alendronate Sodium [Fosamax] 70 mg PO MO 04/21/18 [History] Aspirin [Lo-Dose Aspirin EC] 81 mg PO DAILY 04/21/18 [History] B Complex with Vitamin C [Le-Bee with C] 1 tab PO DAILY 04/21/18 [History] Calcium Carb,Cit/D3/Phytostrol [Citracal D + Heart Health Tab] 1 tab PO DAILY 04/21/18 [History] Cholecalciferol (D-3) [Vitamin D] 5,000 unit PO DAILY 04/21/18 [History] Fluticasone Propionate Nasal [Flonase] 2 spr NS DAILY 04/21/18 [History] Lactobacillus Combination No.9 [Adult 50 + Probiotic] 1 cap PO DAILY 04/21/18 [History] Potassium Chloride [K-Tab ER] 20 meq PO BID 04/21/18 [History] Rosuvastatin Calcium 20 mg PO DAILY 04/21/18 [History] Sertraline [Zoloft] 75 mg PO DAILY 04/21/18 [History] Budesonide/Formoterol 160/4.5 [Symbicort 160/4.5] 2 puff IH BIDR #1 inh 04/25/18 [Rx] Tiotropium [place] [Spiriva Respimat] 2 puff IH DAILY 06/26/18 [History] Albuterol Sulfate [Ventolin Hfa] 2 puff IH Q6H PRN 08/15/18 [History] LORazepam [Ativan] 0.5 - 1 mg PO HS 08/15/18 [History] Albuterol Neb [Proventil Neb] 2.5 mg IH QAM 11/04/18 [History] Clopidogrel [Plavix] 75 mg PO DAILY 11/04/18 [History] Furosemide [Lasix] 40 mg PO DAILY 11/04/18 [History] Levothyroxine Sodium 88 mcg PO QAM 11/04/18 [History] Metoprolol XL (24 HR) Succ [Toprol Xl] 25 mg PO DAILY 11/04/18 [History] Ranolazine [Ranexa] 500 mg PO BID 11/14/18 [History] Biotin 10,000 mcg PO DAILY 11/15/18 [History] Ipratropium/Albuterol Sulfate [Iprat-Albut 0.5-3(2.5) mg/3 ml] 3 ml IH Q6H 11/15/18 [History] Isosorbide DInitrate [Isosorbide Dinitrate] 30 mg PO BID 11/15/18 [History] Montelukast [Singulair] 10 mg PO QPM 11/15/18 [History] Cefdinir [Omnicef] 300 mg PO Q12HR 14 Days #8400 mg MDD 600mg 11/21/18 [Rx] Doxycycline Calcium [Vibramycin] 50 mg PO BID 14 Days #100 mls 11/21/18 [Rx] predniSONE [PredniSONE] 10 mg PO DAILY #28 tablet 11/21/18 [Rx] Allergies/Adverse Reactions: Allergy/AdvReac Type Severity Reaction Status Date / Time lactose AdvReac Abdominal Verified 11/03/18 07:11 Pain Certification: Further, I certify that my clinical findings support that this patient is homebound (i.e. absences from home require considerable and taxing effort and are for medical reasons or congregation services or infrequently or short duration when for other reasons) because: Homebound Reason: Patient requires assistance of a person or device to safely leave home, Severity of cardiac or pulmonary status limits activity tolerance Attestation: My signature below is to certify that this patient is under my care and that I, or nurse practitioner, or a physician's dental assistant working with me, has a lygy-si-pore encounter with this patient.
--- NOTE | 2018-11-25 22:34 | Physician Discharge Referral ---
Home Health/Hosp Referral Info Transfer to: Home Health Provider in Charge Post Discharge: PCP - Diagnosis (1) Acute exacerbation of CHF (congestive heart failure) Priority: Secondary Status: Acute (2) Acute respiratory failure with hypoxemia Priority: Primary Status: Acute (3) CHF (congestive heart failure) Priority: Secondary Status: Acute (4) COPD with exacerbation Priority: Secondary Status: Acute - Respiratory Orders Oxygen / L per min Smoking Cessation: Smoking cessation has been advised. For more information, call the [place] Tobacco Quit Line at 6-369-BSJK-NOW. - Diet/Nutrition Diet/Nutrition Orders: Cardiac - Activity Activity: List: As per PT.OT - Services Needed Following services are medically necessary services: Nursing, Home Health Aide, Physical Therapy, Occupational Therapy - Transfer Medications Prescriptions: Cefdinir [Omnicef] 300 mg PO Q12HR 14 Days #8400 mg MDD 600mg predniSONE [PredniSONE] 10 mg PO DAILY #28 tablet Doxycycline Calcium [Vibramycin] 50 mg PO BID 14 Days #100 mls Home Medications: Alendronate Sodium [Fosamax] 70 mg PO MO 04/21/18 [History] Aspirin [Lo-Dose Aspirin EC] 81 mg PO DAILY 04/21/18 [History] B Complex with Vitamin C [[place] with C] 1 tab PO DAILY 04/21/18 [History] Calcium Carb,Cit/D3/Phytostrol [Citracal D + Heart Health Tab] 1 tab PO DAILY 04/21/18 [History] Cholecalciferol (D-3) [Vitamin D] 5,000 unit PO DAILY 04/21/18 [History] Fluticasone Propionate Nasal [Flonase] 2 spr NS DAILY 04/21/18 [History] Lactobacillus Combination No.9 [Adult 50 + Probiotic] 1 cap PO DAILY 04/21/18 [History] Potassium Chloride [K-Tab ER] 20 meq PO BID 04/21/18 [History] Rosuvastatin Calcium 20 mg PO DAILY 04/21/18 [History] Sertraline [Zoloft] 75 mg PO DAILY 04/21/18 [History] Budesonide/Formoterol 160/4.5 [Symbicort 160/4.5] 2 puff IH BIDR #1 inh 04/25/18 [Rx] Tiotropium [place] [Spiriva Respimat] 2 puff IH DAILY 06/26/18 [History] Albuterol Sulfate [Ventolin Hfa] 2 puff IH Q6H PRN 08/15/18 [History] LORazepam [Ativan] 0.5 - 1 mg PO HS 08/15/18 [History] Albuterol Neb [Proventil Neb] 2.5 mg IH QAM 11/04/18 [History] Clopidogrel [Plavix] 75 mg PO DAILY 11/04/18 [History] Furosemide [Lasix] 40 mg PO DAILY 11/04/18 [History] Levothyroxine Sodium 88 mcg PO QAM 11/04/18 [History] Metoprolol XL (24 HR) Succ [Toprol Xl] 25 mg PO DAILY 11/04/18 [History] Ranolazine [Ranexa] 500 mg PO BID 11/14/18 [History] Biotin 10,000 mcg PO DAILY 11/15/18 [History] Ipratropium/Albuterol Sulfate [Iprat-Albut 0.5-3(2.5) mg/3 ml] 3 ml IH Q6H 11/15/18 [History] Isosorbide DInitrate [Isosorbide Dinitrate] 30 mg PO BID 11/15/18 [History] Montelukast [Singulair] 10 mg PO QPM 11/15/18 [History] Cefdinir [Omnicef] 300 mg PO Q12HR 14 Days #8400 mg MDD 600mg 11/21/18 [Rx] Doxycycline Calcium [Vibramycin] 50 mg PO BID 14 Days #100 mls 11/21/18 [Rx] predniSONE [PredniSONE] 10 mg PO DAILY #28 tablet 11/21/18 [Rx] Allergies/Adverse Reactions: Allergy/AdvReac Type Severity Reaction Status Date / Time lactose AdvReac Abdominal Verified 11/03/18 07:11 Pain Certification: Further, I certify that my clinical findings support that this patient is homebound (i.e. absences from home require considerable and taxing effort and are for medical reasons or congregation services or infrequently or short duration when for other reasons) because: Homebound Reason: Severity of cardiac or pulmonary status limits activity tolerance Attestation: My signature below is to certify that this patient is under my care and that I, or nurse practitioner, or a physician's assistant principal working with me, has a [id number] encounter with this patient.
== END 2018-11-21 18:44 | disposition home or self-care (01) | DRG 871 ==
LOC: 3BNU 17:21 → EMEROOARM 17:21 → SUATTDRO 20:55 → 3BNU 22:05 → SUATTDRO 11-14 21:55
PROVIDERS: ADMIT Internal Medicine; ATTEND Student in an Organized Health Care Education/Training Program

== ENCOUNTER 2019-05-03 14:33 | Inpatient (IN) ==
[2019-05-03] MEDS ORDERED: *HR* FentaNYL (PF) 100 MCG/2 ML VIAL IVP ONE ×2 (15:10→16:14)
[2019-05-03] MEDS ORDERED: 0.9 % Sodium Chloride 500 ML IVC ONE (15:14)
[2019-05-03 15:31] LABS: Basophils # 0.1 K/mcL (0.0-0.2); Basophils % 0.5 %; Eosinophils # 0.2 K/mcL (0.0-0.6); Eosinophils % 1.7 %; Hematocrit 35.1 % (35.3-44.9); Hemoglobin 11.7 g/dL (11.5-15.4); Immature Granulocytes % 0.6 % (0-4); Lymphocytes # 2.3 K/mcL (0.6-4.6); Lymphocytes % 23.9 %; Mean Corpuscular HGB Conc 33.3 g/dL (31.6-35.5); Mean Corpuscular Hemoglobin 34.5 pg (28.0-33.3); Mean Corpuscular Volume 103.5 fL (83.0-100.0); Mean Platelet Volume 10.3 fL (9.4-12.4); Monocytes # 0.8 K/mcL (0.0-1.3); Monocytes % 7.8 %; Neutrophils # 6.3 K/mcL (1.6-8.9); Platelet Count 224 K/mcL (140-400); Red Blood Count 3.39 M/mcL (3.82-4.97); Red Cell Distribution Width 14.1 % (11.5-14.5); Segmented Neutrophils % 65.5 %; White Blood Count 9.7 K/mcL (4.3-11.1)
[2019-05-03 15:48] LABS: Alanine Aminotransferase 18 Units/L (7-52); Albumin 3.7 g/dL (3.5-5.7); Alkaline Phosphatase 61 Units/L (34-104); Aspartate Amino Transferase 43 Units/L (13-39); BUN/Creatinine Ratio 17 (6-26); Bilirubin,Total 0.3 mg/dL (0.3-1.0); Blood Urea Nitrogen 15 mg/dL (8-23); C-Reactive Protein 20 mg/L (Less than 10); Calcium 8.8 mg/dL (8.6-10.3); Carbon Dioxide 21 mEq/L (23-29); Chloride 98 mEq/L (98-107); Globulin 3.8 g/dL (2.4-3.5); Glucose 81 mg/dL (70-105); Lipase 51 Units/L (11-82); Osmolality,Calculated 268 (280-300); Potassium 4.6 mEq/L (3.5-5.1); Sodium 129 mEq/L (136-145); Total Protein 7.5 g/dL (6.4-8.9); eGFR For African Americans > 60 (> 60); eGFR For Non-African Americans > 60 (> 60)
[2019-05-03 16:05] LABS: Troponin I 0.05 ng/mL (< 0.04)
[2019-05-03 16:46] LABS: Bilirubin,Urine Negative (Negative); Blood,Urine Trace (Negative); Clarity,Urine Clear (Clear); Color,Urine Yellow (Yellow); Glucose,Urine (UA) Normal (Normal); Ketones,Urine Negative (Negative); Leukocyte Esterase,Urine Small (Negative); Nitrite,Urine Negative (Negative); Protein,Urine Trace mg/dL (Neg-Trace); Specific Gravity,Urine 1.009 (1.010-1.025); Urobilinogen,Urine Normal (Normal)
[2019-05-03 16:57] LABS: Bacteria,Urine None Seen per hpf (None-Few); Hyaline Casts,Urine None Seen per lpf (None-Few); Squamous Epithelial Cell,Urine Moderate per lpf (None-Few)
[2019-05-03] MEDS ORDERED: *HR* HYDROmorphone (PF) 1 MG/ML SYRINGE IVP ONE (17:07)
[2019-05-03] MEDS ORDERED: Isovue-370 500 ML BOTTLE IVP ONE (17:58)
[2019-05-03] MEDS ORDERED: Ondansetron ODT 4 MG TAB.RAPDIS SL PRN (18:28)
[2019-05-03] MEDS ORDERED: Naloxone 0.4 MG/ML INJ IVP PRN (18:28)
[2019-05-03] MEDS ORDERED: 0.9 % Sodium Chloride 500 ML IVC SCH (18:30)
[2019-05-03 18:37] LABS: Creatine Kinase 130 Units/L (30-223)
[2019-05-03] MEDS ORDERED: *HR* LORazepam 1 MG TABLET PO PRN (18:57)
[2019-05-03] MEDS ORDERED: D5% in Lactated Ringers 1,000 ML IVC SCH (19:00)
[2019-05-03] MEDS: Ipratropium/Albuterol Neb 3 ML IH SCH ×2 (19:50→22:27)
[2019-05-03] MEDS: Ranolazine 500 MG TAB.ER.12H PO SCH (20:12)
[2019-05-03] MEDS: Budesonide/Formoterol 160/4.5 1 PUFF INH IH SCH (22:27)
[2019-05-04 01:15] LABS: Hematocrit 31.9 % (35.3-44.9); Hemoglobin 10.3 g/dL (11.5-15.4); Mean Corpuscular HGB Conc 32.3 g/dL (31.6-35.5); Mean Corpuscular Hemoglobin 34.1 pg (28.0-33.3); Mean Corpuscular Volume 105.6 fL (83.0-100.0); Platelet Count 202 K/mcL (140-400); Red Blood Count 3.02 M/mcL (3.82-4.97); Red Cell Distribution Width 14.3 % (11.5-14.5); White Blood Count 10.3 K/mcL (4.3-11.1)
[2019-05-04 01:16] LABS: VBG HCO3 25 mEq/L (21-27); VBG PCO2 56 mmHg (41-51); VBG PH 7.26 pH Units (7.32-7.42); VBG PO2 49 mmHg (25-50)
[2019-05-04 01:21] LABS: Prothrombin Time 11.8 Seconds (9.4-12.1)
[2019-05-04 01:35] LABS: Alanine Aminotransferase 14 Units/L (7-52); Albumin 3.1 g/dL (3.5-5.7); Alkaline Phosphatase 51 Units/L (34-104); Aspartate Amino Transferase 33 Units/L (13-39); BUN/Creatinine Ratio 19 (6-26); Bilirubin,Direct 0.1 mg/dL (0.0-0.2); Bilirubin,Indirect 0.3 mg/dL (0.0-1.0); Bilirubin,Total 0.4 mg/dL (0.3-1.0); Blood Urea Nitrogen 14 mg/dL (8-23); Calcium 7.8 mg/dL (8.6-10.3); Carbon Dioxide 24 mEq/L (23-29); Chloride 103 mEq/L (98-107); Glucose 121 mg/dL (70-105); Osmolality,Calculated 270 (280-300); Potassium 4.9 mEq/L (3.5-5.1); Sodium 129 mEq/L (136-145); Total Protein 6.3 g/dL (6.4-8.9); eGFR For African Americans > 60 (> 60); eGFR For Non-African Americans > 60 (> 60)
[2019-05-04 01:36] LABS: Globulin 3.2 g/dL (2.4-3.5)
[2019-05-04] MEDS: Ipratropium/Albuterol Neb 3 ML IH SCH ×4 (03:43→20:55)
[2019-05-04] MEDS: Aspirin Enteric Coated 81 MG Tablet PO SCH (09:12)
[2019-05-04] MEDS: Ranolazine 500 MG TAB.ER.12H PO SCH ×2 (09:12→21:15)
[2019-05-04] MEDS: Metoprolol XL (24 HR) Succ 25 MG TAB.ER.24H PO SCH (09:13)
[2019-05-04] MEDS: Budesonide/Formoterol 160/4.5 1 PUFF INH IH SCH ×2 (10:42→20:55)
[2019-05-04] MEDS: *HR* Enoxaparin 30 MG/0.3 ML SYRINGE SQ SCH (16:18)
[2019-05-05] MEDS: Ipratropium/Albuterol Neb 3 ML IH SCH ×4 (04:19→22:04)
[2019-05-05 05:32] LABS: Basophils % 0.3 %; Eosinophils # 0.2 K/mcL (0.0-0.6); Eosinophils % 1.6 %; Hematocrit 31.6 % (35.3-44.9); Hemoglobin 9.9 g/dL (11.5-15.4); Immature Granulocytes % 0.5 % (0-4); Lymphocytes # 1.6 K/mcL (0.6-4.6); Lymphocytes % 16.4 %; Mean Corpuscular HGB Conc 31.3 g/dL (31.6-35.5); Mean Corpuscular Hemoglobin 33.9 pg (28.0-33.3); Mean Corpuscular Volume 108.2 fL (83.0-100.0); Mean Platelet Volume 10.7 fL (9.4-12.4); Monocytes # 0.7 K/mcL (0.0-1.3); Monocytes % 6.6 %; Neutrophils # 7.3 K/mcL (1.6-8.9); Platelet Count 180 K/mcL (140-400); Red Blood Count 2.92 M/mcL (3.82-4.97); Red Cell Distribution Width 14.5 % (11.5-14.5); Segmented Neutrophils % 74.6 %; White Blood Count 9.8 K/mcL (4.3-11.1)
[2019-05-05 05:52] LABS: BUN/Creatinine Ratio 17 (6-26); Blood Urea Nitrogen 13 mg/dL (8-23); Calcium 8.1 mg/dL (8.6-10.3); Carbon Dioxide 23 mEq/L (23-29); Chloride 102 mEq/L (98-107); Glucose 86 mg/dL (70-105); Osmolality,Calculated 271 (280-300); Potassium 4.7 mEq/L (3.5-5.1); Sodium 131 mEq/L (136-145); eGFR For African Americans > 60 (> 60); eGFR For Non-African Americans > 60 (> 60)
[2019-05-05] MEDS ORDERED: Calcium Gluconate 1gm/50mL 1 GM/50 ML BAG IVPB ONE (07:04)
[2019-05-05] MEDS ORDERED: Acetaminophen 325 MG TABLET PO PRN (07:13)
[2019-05-05] MEDS: Aspirin Enteric Coated 81 MG Tablet PO SCH (07:54)
[2019-05-05] MEDS: Ranolazine 500 MG TAB.ER.12H PO SCH ×2 (07:54→20:18)
[2019-05-05] MEDS: *HR* Enoxaparin 30 MG/0.3 ML SYRINGE SQ SCH (07:55)
[2019-05-05] MEDS: Metoprolol XL (24 HR) Succ 25 MG TAB.ER.24H PO SCH (07:56)
[2019-05-05] MEDS: Budesonide/Formoterol 160/4.5 1 PUFF INH IH SCH ×2 (10:49→22:04)
[2019-05-05] MEDS ORDERED: Sennosides/Docusate Sodium TABLET PO PRN (11:27)
[2019-05-05] MEDS ORDERED: *HR* FentaNYL PATCH 12 MCG PATCH TD SCH (11:30)
[2019-05-05] MEDS ORDERED: Nitroglycerin 0.4 MG TAB.SUBL SL PRN (11:32)
[2019-05-05] MEDS: Tiotropium 18 MCG inhalation IH SCH (14:25)
[2019-05-06] MEDS: Ipratropium/Albuterol Neb 3 ML IH SCH ×3 (03:18→15:50)
[2019-05-06 05:53] LABS: Basophils % 0.3 %; Eosinophils # 0.1 K/mcL (0.0-0.6); Hematocrit 31.2 % (35.3-44.9); Hemoglobin 9.8 g/dL (11.5-15.4); Immature Granulocytes % 0.4 % (0-4); Lymphocytes # 1.8 K/mcL (0.6-4.6); Lymphocytes % 13.5 %; Mean Corpuscular HGB Conc 31.4 g/dL (31.6-35.5); Mean Corpuscular Hemoglobin 34.1 pg (28.0-33.3); Mean Corpuscular Volume 108.7 fL (83.0-100.0); Mean Platelet Volume 10.5 fL (9.4-12.4); Neutrophils # 10.5 K/mcL (1.6-8.9); Platelet Count 190 K/mcL (140-400); Red Blood Count 2.87 M/mcL (3.82-4.97); Red Cell Distribution Width 14.5 % (11.5-14.5); Segmented Neutrophils % 77.8 %; White Blood Count 13.5 K/mcL (4.3-11.1)
[2019-05-06 06:16] LABS: BUN/Creatinine Ratio 15 (6-26); Blood Urea Nitrogen 15 mg/dL (8-23); Calcium 8.4 mg/dL (8.6-10.3); Carbon Dioxide 21 mEq/L (23-29); Chloride 98 mEq/L (98-107); Glucose 85 mg/dL (70-105); Osmolality,Calculated 268 (280-300); Potassium 4.6 mEq/L (3.5-5.1); Sodium 129 mEq/L (136-145); eGFR For African Americans > 60 (> 60); eGFR For Non-African Americans 52 (> 60)
[2019-05-06 06:48] VITALS: BP 102/57
[2019-05-06] MEDS: Aspirin Enteric Coated 81 MG Tablet PO SCH (08:38)
[2019-05-06] MEDS: *HR* Enoxaparin 30 MG/0.3 ML SYRINGE SQ SCH (08:38)
[2019-05-06] MEDS: Metoprolol XL (24 HR) Succ 25 MG TAB.ER.24H PO SCH (08:39)
[2019-05-06] MEDS: Ranolazine 500 MG TAB.ER.12H PO SCH (08:39)
[2019-05-06] MEDS: Tiotropium 18 MCG inhalation IH SCH (10:25)
[2019-05-06] MEDS: Budesonide/Formoterol 160/4.5 1 PUFF INH IH SCH (10:25)
[2019-05-06] MEDS ORDERED: Milk and Molasses Enema 200 ML RC ONE (11:20)
[2019-05-06] MEDS ORDERED: Methylnaltrexone 12 MG/0.6 ML SYRINGE SQ ONE (16:17)
== END 2019-05-06 16:42 | disposition hospice, home (50) | DRG 302 ==
LOC: SUATTDRO → 3BNU 14:33 → EMEROOARM 14:33 → SUATTDRO 18:21 → 3BNU 18:54 → SUATTDRO 05-04 14:25
PROVIDERS: ADMIT Internal Medicine; ATTEND Student in an Organized Health Care Education/Training Program